=== PATIENT | female | born 1940 | race Caucasian/White ===

== ENCOUNTER → 2017-07-23 12:52 | Outpatient (CLI) | payer MEDICARE, OTHER, SELFPAY ==
--- NOTE | 2017-08-04 09:13 | PM.CARDMON.1 ---
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 The triggered event was associated with PACs and sinus rhythm Data: The minimum heart rate identified was 57 beats per minute at 23:09 on 07/24/2017. The maximum heart rate identified was 176 beats per minute at 17:58 on 07/25/2017 this was during a 7 beat run of SVT. The maximum sinus heart rate was 117 beats per minute at 10:35 on 07/24/2017 Less than 1% of identified beats were either PACs or PVCs There were 7 identified runs of SVT, the longest being 9 beats and the fastest being 7 beats at 176 beats per minute. Impression: Probably normal potline monitor. Occasional PACs and PVCs with very limited episodes of SVT as above that just may be long enough to cause symptoms. Clinical correlation suggested.
--- NOTE | 2017-08-04 09:16 | P.HOLT.S_ITS ---
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 The triggered event was associated with PACs and sinus rhythm Data: The minimum heart rate identified was 57 beats per minute at 23:09 on 10/2017. The maximum heart rate identified was 176 beats per minute at 17:58 on 2017 this was during a 7 beat run of SVT. The maximum sinus heart rate was 117 beats per minute at 10:35 on 07/24/2017 Less than 1% of identified beats were either PACs or PVCs There were 7 identified runs of SVT, the longest being 9 beats and the fastest being 7 beats at 176 beats per minute. Impression: Probably normal rn cardiac cath. Occasional PACs and PVCs with very limited episodes of SVT as above that just may be long enough to cause symptoms. Clinical correlation suggested.
== END ==
PROVIDERS: Family Provider Family Medicine; PCP Family Medicine; Visit Provider Family Medicine
DX: I49.9 Cardiac arrhythmia, unspecified (principal)
CPT/HCPCS: 0296T; 0298T

== ENCOUNTER → 2017-10-22 18:12 | Outpatient (REF) | payer MEDICARE, OTHER, SELFPAY | LOC: LAB 18:12 | PROVIDERS: Family Provider Family Medicine; PCP Family Medicine; Visit Provider Dermatology MOHS-Micrographic Surgery | DX: Z48.817 Encounter for surgical aftercare following surgery on the skin and subcutaneous tissue (principal); L01.00 Impetigo, unspecified | CPT/HCPCS: 87070; 87075; 87205 ==

== ENCOUNTER → 2017-10-25 09:54 | Outpatient (CLI) | payer MEDICARE, OTHER, SELFPAY ==
[2017-10-25 10:57] LABS: Vitamin D 25 Hydroxy (D3) 55.7 ng/mL (30.0-100.0)
== END ==
PROVIDERS: PCP Family Medicine; Visit Provider Family Medicine
DX: M85.80 Other specified disorders of bone density and structure, unspecified site (principal)
CPT/HCPCS: 36415; 82306

== ENCOUNTER → 2017-11-02 10:01 | Outpatient (CLI) | payer MEDICARE, OTHER, SELFPAY ==
--- NOTE | 2017-11-02 | OV.WND_ITS ---
Progress Note Details Patient Name: Vaishnavi Fernandez Patient Number: [id number] PatientPatientDate: 11/02/2017 Clinician: Jessica Lipscomb Physician / Feed Research Technician: Randal Hartman SUBJECTIVE Chief Complaint This information was obtained from the patient Mohs Surgery 10/14/17 Allergies penicillin (Severity: Moderate, Reaction: Rash) HPI This information was obtained from the patient 11/02/17. Seen by Dr. Hartman. 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 It apparently became infected and has now delayed in healing. She initially completed a course of Keflex however continues to report some pain and drainage at the ulcer site. Family History This information was obtained from the patient Cancer - Mother, Diabetes - Father, Heart Disease - Mother, Maternal Grandparents, Father, Hypertension - Mother, Maternal Grandparents, Father, Paternal Grandparents, Mental Illness - Mother, Non-contributory - No History, None - No History, Other - No History, Seizures - No History, Stroke - Maternal Grandparents, Thyroid Problems - No History General Notes: Dementia = Mother. Family history of Melanoma Social History This information was obtained from the patient Alcohol Use - 1 a day, Caffeine Use - 1 cup of coffee, Children - 3, Lives in - Own Home with , Marital Status - Yes, Retired - [employer], Self Care and Mobility - own self care Past Medical History This information was obtained from the patient Patient has a medical history of: Hypothyroidism Hypertension Basal Cell Carcinoma Surgical History This information was obtained from the patient Patient has a surgical history of: Oophorectomy and Hysterectomy (age 50) Mohs - 10/14/2017 (Squamous cell carcinoma) Mohs (Basil Cell Carinoma foot past) Right Knee Replacement General Notes: Has had multiple skin cancer removal. Complaints and Symptoms This information was obtained from the patient Patient complains of: General Notes: I have reviewed and concur with the Review of Systems and Past Family Social History documents completed by the clinician, I have reviewed and concur with the Wound Assessment document completed by the clinician Ear/Nose/Mouth/Throat: Hearing Loss / Aid Hematologic/Lymphatic: Bleeding Tendency Integumentary (Hair/Skin/Nails): Open Sore Prior Wound History: Drainage, Erythema, Pain Patient denies complaints or symptoms related to: Cardiovascular (Central): Chest Pain, Dyspnea on Exertion, Irregular heart beat Constitutional Symptoms (General Health): Chills, Fever Hematologic/Lymphatic: Bleeding / Clotting Disorders Neurological: Loss of Protective Sensation Psychiatric: Memory Loss Respiratory: Shortness of Breath General Notes: Updated will get one this week. Additional Information Does patient have a history of Cancer? Yes? Complete all questions.: Yes Location of Cancer: Skin Cancers on legs, feet, arms. Patient underwent Radiation Treatment? If yes, answer question below.: No Medications Lipitor 10 mg tablet oral 1 1 tablet oral once daily lisinopril 20 mg tablet oral 1 1 tablet oral once daily Aspir-81 81 mg tablet,delayed release oral tablet,delayed release (DR/EC) oral once daily levothyroxine 50 mcg tablet oral 1 1 tablet oral once daily OBJECTIVE Constitutional BP elevated; Afebrile; Alert and in no distress. Well developed. Alert. Clean appearing.. Height/Length: 66 in (167.64 cm), Weight: 160 lbs (72.73 kgs), BMI: 25.8, Temperature: 98.2 ?F (36.78 ?C), Pulse: 84 bpm, Respiratory Rate: 18 breaths/min, Blood Pressure: 170/84 mmHg, Pulse Oximetry: 99 %. Ears, Nose, Mouth, and Throat: No clinically significant hearing loss on informal examination. Respiratory: No respiratory distress. Even respirations and without use of accessory muscles.. Cardiovascular: Pedal pulses 2+ on affected limb. 1+ left lower extremity edema. Integumentary (Hair, Skin) Mild periwound erythema with warmth. Refer to appropriate clinician wound documentation for this visit; left lower leg ulcer extends to subcut with base partially covered with covarrubias fibrin and slough. Wound #1 Left, Posterior Leg is a chronic Full Thickness Surgical Wound and has received a status of Not Healed. Initial wound encounter measurements are 4cm length x 3cm width x 0.3cm depth, with an area of 12 sq cm and a volume of 3.6 cubic cm. No tunneling has been noted. No sinus tract has been noted. No undermining has been noted. There is a moderate amount of serosanguineous drainage noted which has no odor. The patient reports a wound pain of level 0/10. The wound margin is attached. Wound bed has No epithelialization, Yes eschar, Yes slough, No granulation. The periwound skin moisture is normal. The periwound skin color is normal. The periwound skin exhibited: Brawny Induration. The temperature of the periwound skin is Warm. Periwound skin presents with s/s of infection. Confirmation Description and Treatment Plan is: Signs and Symptoms Present. Local Pulse is Palpable. Neurological: Cranial nerves grossly intact with symmetric function normal by informal observation.. ASSESSMENT Active Problems ICD-10 (Encounter Diagnosis) L97.522 - Non-pressure chronic ulcer of other part of left foot with fat layer exposed (Encounter Diagnosis) L03.116 - Cellulitis of left lower limb PROCEDURES Wound #1 Wound #1 (Surgical Wound) is located on the left, posterior leg. A skin/ subcutaneous tissue level surgical debridement with a total area debrided of 12 sq cm was performed by Randal Hartman MD. Subcutaneous was removed along with devitalized tissue: exudate and slough. The following instrument(s) were used: curette, forceps, and scissors. Pain control was achieved using 4% Lido. A time out was conducted prior to the start of the procedure. A moderate amount of bleeding was controlled with pressure. The procedure was tolerated well with a pain level of 0 throughout and a pain level of 0 following the procedure. Post Debridement Measurements: 4cm length x 3cm width; with an area of 12 sq cm General Notes: Post Picture. Additional Information Muscle fascia or bone removed and sent to pathology?: No PLAN Wound Orders: Wound #1 Left, Posterior Leg Cleanser Cleanse Wound: - Normal saline or distilled water. May Shower. - But must wear Cast Protector Boot. This can be purchased at [employer] or [employer]. We want you to keep the dressing and wound dry from bathing. No swimming until this has healed. Dressings Pack wound: - Medi-Honey to wound bed. Primary dressing: - Then cover with a border foam Change Dressing: - Every two days. Follow-Up Appointments Return Appointment: - - One Week Other information: If you develop fever, chills, increased pain, drainage, redness or swelling please call our office. If after hours, respond to the ER. Should you experience any significant changes in your wound(s) or have any questions regarding your home care instructions please contact the wound center @ [phone]. If after hours, contact your primary care physician or go to the hospital emergency room. Laboratory: Culture Wound - Left Leg Medications prescribed: doxycycline hyclate - oral 100 mg capsule twice daily for 7 days for cellulitis starting 11/02/2017 General Notes: Start Antibiotics. We have called them into [facility]. We will call you if we need to change your antibiotic. Please increase your protein intact. I've reviewed the clinician's documentation and agree with the evaluation and plan as written. In addition, the patient's ulcer demonstrates evidence of non-viable devitalized tissue which will continue to benefit from sharp debridement to help promote granulation and expedite healing. Also, I've started the patient empirically on doxycycline for cellulitis associated with the non- pressure ulcer and will adjust antibiotics pending the culture results. Electronic Signature(s) Signed By: Date: Ranadl Hartman MD 11/23/2017 08:43:34 Entered By: Randal Hartman on 11/23/2017 08:27:23
== END ==
PROVIDERS: Family Provider Family Medicine; PCP Family Medicine; Visit Provider Internal Medicine
DX: L97.822 Non-pressure chronic ulcer of other part of left lower leg with fat layer exposed (principal); L03.116 Cellulitis of left lower limb
CPT/HCPCS: 11042; 87070; 87205; 99213

== ENCOUNTER → 2017-11-10 08:36 | Outpatient (CLI) | payer MEDICARE, OTHER, SELFPAY ==
--- NOTE | 2017-11-10 | OV.WND_ITS ---
Progress Note Details Patient Name: Vaishnavi Fernandez Patient Number: [id number] PatientPatientDate: 11/10/2017 Clinician: Charlene Portillo Clinician Cosigner: Xiomy Chandra Physician / Business Liaison Manager: Randal Hartman SUBJECTIVE Chief Complaint This information was obtained from the patient Mohs Surgery 10/14/17 Allergies penicillin (Severity: Moderate, Reaction: Rash) HPI This information was obtained from the patient 11/10/17. Seen by Dr. Hartman. The patient reports some mild persistent pain associated with the left lower leg non-pressure ulcer but in general feels it improving since starting on doxycycline for associated cellulitis after her visit last week. 11/02/17. Seen by Dr. Hartman. 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 It apparently became infected and has now delayed in healing. She initially completed a course of Keflex however continues to report some pain and drainage at the ulcer site. Past Medical History This information was obtained from the patient Patient has a medical history of: Hypothyroidism Hypertension Basal Cell Carcinoma Complaints and Symptoms This information was obtained from the patient Patient complains of: General Notes: I have reviewed and concur with the Review of Systems and Past Family Social History documents completed by the clinician, I have reviewed and concur with the Wound Assessment document completed by the clinician Ear/Nose/Mouth/Throat: Hearing Loss / Aid Hematologic/Lymphatic: Bleeding Tendency Integumentary (Hair/Skin/Nails): Open Sore Prior Wound History: Drainage, Erythema, Pain Patient denies complaints or symptoms related to: Cardiovascular (Central): Chest Pain, Dyspnea on Exertion, Irregular heart beat Constitutional Symptoms (General Health): Chills, Fever Hematologic/Lymphatic: Bleeding / Clotting Disorders Neurological: Loss of Protective Sensation Psychiatric: Memory Loss Respiratory: Shortness of Breath Additional Information Does patient have a history of Cancer? Yes? Complete all questions.: Yes Location of Cancer: Skin Cancers on legs, feet, arms. Patient underwent Radiation Treatment? If yes, answer question below.: No OBJECTIVE Constitutional Vital signs reviewed and noted. Well developed. Alert. Clean appearing.. Height/ Length: 66 in (167.64 cm), Weight: 165 lbs (75 kgs), BMI: 26.6, Temperature: 98.6 ?F (37 ?C), Pulse: 90 bpm, Respiratory Rate: 18 breaths/min, Blood Pressure: 122/64 mmHg, Pulse Oximetry: 99 %. Respiratory: No respiratory distress. Even respirations and without use of accessory muscles.. Cardiovascular: Affected extremity exhibits no peripheral edema or cyanosis, is warm, and is well perfused. Capillary refill is less than 2 seconds. Integumentary (Hair, Skin) No periwound erythema, warmth, or significant drainage. No periwound rashes appreciated or noted otherwise.. Refer to appropriate clinician wound documentation for this visit; left lower leg ulcer extends to subcut with base minimally covered with pink granulation, remainder fibrin and slough. Wound #1 Left, Posterior Leg is a chronic Full Thickness Surgical Wound and has received a status of Not Healed. Subsequent wound encounter measurements are 4cm length x 1cm width x 0.3cm depth, with an area of 4 sq cm and a volume of 1.2 cubic cm. No tunneling has been noted. No sinus tract has been noted. No undermining has been noted. There is a moderate amount of serosanguineous drainage noted which has no odor. The patient reports a wound pain of level 0/10. The wound margin is attached. Wound bed has Yes epithelialization, Yes eschar, Yes slough, Yes pink, firm granulation. The periwound skin moisture is normal. The periwound skin exhibited: Brawny Induration, Hemosiderosis. The temperature of the periwound skin is Warm. Periwound skin does not exhibit signs or symptoms of infection. Local Pulse is Palpable. Neurological: Cranial nerves grossly intact with symmetric function normal by informal observation.. ASSESSMENT Active Problems ICD-10 (Encounter Diagnosis) L97.522 - Non-pressure chronic ulcer of other part of left foot with fat layer exposed PROCEDURES Wound #1 Wound #1 (Surgical Wound) is located on the left, posterior leg. A skin/ subcutaneous tissue level surgical debridement with a total area debrided of 4 sq cm was performed by Randal Hartman MD. Subcutaneous was removed along with devitalized tissue: slough. The following instrument(s) were used: curette. Pain control was achieved using 4% Lido. A time out was conducted prior to the start of the procedure. A minimal amount of bleeding was controlled with n/a. The procedure was tolerated well with a pain level of 0 throughout and a pain level of 0 following the procedure. Post Debridement Measurements: 4cm length x 1cm width x 0.4cm depth; with an area of 4 sq cm and a volume of 1.6 cubic cm; Additional Information Muscle fascia or bone removed and sent to pathology?: No PLAN Wound Orders: Wound #1 Left, Posterior Leg Anesthetic Topical Xylocaine to wound bed. - In clinic only Cleanser Cleanse Wound: - Normal saline or distilled water. May Shower. - But must wear Cast Protector Boot. This can be purchased at [employer] or [employer]. We want you to keep the dressing and wound dry from bathing. No swimming until this has healed. Dressings Pack wound: - Medi-Honey to wound bed. Primary dressing: - Then cover with a border foam Change Dressing: - Every two days. Follow-Up Appointments Return Appointment: - - One Week Other information: If you develop fever, chills, increased pain, drainage, redness or swelling please call our office. If after hours, respond to the ER. Should you experience any significant changes in your wound(s) or have any questions regarding your home care instructions please contact the wound center @ [phone]. If after hours, contact your primary care physician or go to the hospital emergency room. I've reviewed the clinician's documentation and agree with the evaluation and plan as written. In addition, the patient's ulcer demonstrates evidence of non-viable devitalized tissue which will continue to benefit from sharp debridement to help promote granulation and expedite healing. Electronic Signature(s) Signed By: Date: Randal Hartman MD 11/11/2017 09:13:39 Entered By: Randal Hartman on 11/11/2017 08:51:10
== END ==
PROVIDERS: Family Provider Family Medicine; PCP Family Medicine; Visit Provider Internal Medicine
DX: L97.822 Non-pressure chronic ulcer of other part of left lower leg with fat layer exposed (principal)
CPT/HCPCS: 11042

== ENCOUNTER → 2017-11-17 08:43 | Outpatient (CLI) | payer MEDICARE, OTHER, SELFPAY ==
--- NOTE | 2017-11-17 | OV.WND_ITS ---
Progress Note Details Patient Name: Vaishnavi Fernandez Patient Number: [id number] PatientPatientDate: 11/17/2017 Clinician: Gemma Hi Cosigner: Xiomy Chandra Physician / Trimmer Meat: Randal Hartman SUBJECTIVE Chief Complaint This information was obtained from the patient Non-healing wound on left leg. Allergies penicillin (Severity: Moderate, Reaction: Rash) HPI This information was obtained from the patient 11/17/17. Seen by Dr. Hartman. The patient does not report significant drainage or pain associated with the left lower leg non-pressure ulcer since her visit last week. 11/10/17. Seen by Dr. Hartman. The patient reports some mild persistent pain associated with the left lower leg non-pressure ulcer but in general feels it improving since starting on doxycycline for associated cellulitis after her visit last week. 11/02/17. Seen by Dr. Hartman. 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 It apparently became infected and has now delayed in healing. She initially completed a course of Keflex however continues to report some pain and drainage at the ulcer site. Past Medical History This information was obtained from the patient Patient has a medical history of: Hypothyroidism Hypertension Basal Cell Carcinoma Complaints and Symptoms This information was obtained from the patient Patient complains of: General Notes: I have reviewed and concur with the Review of Systems and Past Family Social History documents completed by the clinician, I have reviewed and concur with the Wound Assessment document completed by the clinician Ear/Nose/Mouth/Throat: Hearing Loss / Aid Hematologic/Lymphatic: Bleeding Tendency Integumentary (Hair/Skin/Nails): Open Sore Prior Wound History: Drainage, Erythema, Pain Patient denies complaints or symptoms related to: Cardiovascular (Central): Chest Pain, Dyspnea on Exertion, Irregular heart beat Constitutional Symptoms (General Health): Chills, Fever Hematologic/Lymphatic: Bleeding / Clotting Disorders Neurological: Loss of Protective Sensation Psychiatric: Memory Loss Respiratory: Shortness of Breath Additional Information Does patient have a history of Cancer? Yes? Complete all questions.: Yes Location of Cancer: Skin Cancers on legs, feet, arms. Patient underwent Radiation Treatment? If yes, answer question below.: No OBJECTIVE Constitutional BP elevated; Low grade fever; Alert and in no distress. Well developed. Alert. Clean appearing.. Height/Length: 66 in (167.64 cm), Weight: 165 lbs (75 kgs), BMI: 26.6, Temperature: 99.5 ?F (37.5 ?C), Pulse: 81 bpm, Respiratory Rate: 18 breaths/min , Blood Pressure: 137/73 mmHg, Pulse Oximetry: 97 %. Respiratory: No respiratory distress. Even respirations and without use of accessory muscles.. Cardiovascular: Affected extremity exhibits no peripheral edema or cyanosis, is warm, and is well perfused. Capillary refill is less than 2 seconds. Integumentary (Hair, Skin) No periwound erythema, warmth, or significant drainage. No periwound rashes appreciated or noted otherwise.. Refer to appropriate clinician wound documentation for this visit; left lower leg ulcer extends to subcut with base partially covered with pink granulation, remainder fibrin and slough. Wound #1 Left, Posterior Leg is a chronic Full Thickness Surgical Wound and has received a status of Not Healed. Subsequent wound encounter measurements are 3.9cm length x 1.5cm width x 0.3cm depth, with an area of 5.85 sq cm and a volume of 1.755 cubic cm. No tunneling has been noted. No sinus tract has been noted. No undermining has been noted. There is a moderate amount of serosanguineous drainage noted which has no odor. The patient reports a wound pain of level 0/10. The wound margin is attached. Wound bed has Yes epithelialization, Yes eschar, Yes slough, No granulation. The periwound skin moisture is normal. The periwound skin exhibited: Brawny Induration, Hemosiderosis. The periwound skin did not exhibit: Edema, Excoriation, Induration, Callus, Crepitus, Fluctuance, Friable, Rash, Atrophie Lili, Cyanosis, Ecchymosis, Erythema, Pallor, Rubor. The temperature of the periwound skin is Warm. Periwound skin does not exhibit signs or symptoms of infection. Local Pulse is Palpable. Neurological: Cranial nerves grossly intact with symmetric function normal by informal observation.. ASSESSMENT Active Problems ICD-10 (Encounter Diagnosis) L97.522 - Non-pressure chronic ulcer of other part of left foot with fat layer exposed PROCEDURES Wound #1 Wound #1 (Surgical Wound) is located on the left, posterior leg. A skin/ subcutaneous tissue level surgical debridement with a total area debrided of 5.85 sq cm was performed by Randal Hartman MD. Subcutaneous was removed along with devitalized tissue: exudate, necrotic/eschar, and slough. The following instrument(s) were used: curette, forceps, and scissors. Pain control was achieved using 4% Lido. A time out was conducted prior to the start of the procedure. A minimal amount of bleeding was controlled with n/a. The procedure was tolerated well with a pain level of 0 throughout and a pain level of 0 following the procedure. Post Debridement Measurements: 3.9cm length x 1.5cm width x 0.4cm depth; with an area of 5.85 sq cm and a volume of 2.34 cubic cm; Additional Information Muscle fascia or bone removed and sent to pathology?: No PLAN Wound Orders: Wound #1 Left, Posterior Leg Anesthetic Topical Xylocaine to wound bed. - In clinic only. Cleanser Cleanse Wound: - Normal saline or distilled water. May Shower. - Must wear Cast Protector Boot. No swimming until this has healed. Topical Treatments Enzymatic Debriding Agent. - Medihoney. Dressings Primary dressing: - Bordered foam. Change Dressing: - Every two days. Follow-Up Appointments Return Appointment: - - Wednesday next week for possible [employer]INDER application. Other information: If you develop fever, chills, increased pain, drainage, redness or swelling please call our office. If after hours, respond to the ER. Should you experience any significant changes in your wound(s) or have any questions regarding your home care instructions please contact the wound center @ [phone]. If after hours, contact your primary care physician or go to the hospital emergency room. Scribing Attestation I attest, as the nurse, that I scribed these orders for the physician. Other Services and Therapies: Wound VAC - VARINDER insurance authorization being submitted today. I've reviewed the clinician's documentation and agree with the evaluation and plan as written. In addition, the patient's ulcer demonstrates evidence of non-viable devitalized tissue which will continue to benefit from sharp debridement to help promote granulation and expedite healing. Electronic Signature(s) Signed By: Date: Randal Hartman MD 11/18/2017 08:14:12 Entered By: Randal Hartman on 11/18/2017 07:56:23
== END ==
PROVIDERS: Family Provider Family Medicine; PCP Family Medicine; Visit Provider Internal Medicine
DX: L97.822 Non-pressure chronic ulcer of other part of left lower leg with fat layer exposed (principal)
CPT/HCPCS: 11042

== ENCOUNTER → 2017-11-26 09:54 | Outpatient (CLI) | payer MEDICARE, OTHER, SELFPAY ==
--- NOTE | 2017-11-26 | OV.WND_ITS ---
Progress Note Details Patient Name: Vaishnavi Fernandez Patient Number: [id number] PatientPatientDate: 11/26/2017 Clinician: Charlene Portillo Physician / Clinical Recruiter: Randal Hartman SUBJECTIVE Chief Complaint This information was obtained from the patient Non-healing wound on left leg. Allergies penicillin (Severity: Moderate, Reaction: Rash) HPI This information was obtained from the patient 11/26/17. Seen by Dr. Hartman. The patient does not report significant drainage or pain associated with the left lower leg non-pressure ulcer since her visit last week. 11/17/17. Seen by Dr. Hartman. The patient does not report significant drainage or pain associated with the left lower leg non-pressure ulcer since her visit last week. 11/10/17. Seen by Dr. Hartman. The patient reports some mild persistent pain associated with the left lower leg non-pressure ulcer but in general feels it improving since starting on doxycycline for associated cellulitis after her visit last week. 11/02/17. Seen by Dr. Hartman. 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 It apparently became infected and has now delayed in healing. She initially completed a course of Keflex however continues to report some pain and drainage at the ulcer site. Past Medical History This information was obtained from the patient Patient has a medical history of: Hypothyroidism Hypertension Basal Cell Carcinoma Complaints and Symptoms This information was obtained from the patient Patient complains of: General Notes: I have reviewed and concur with the Review of Systems and Past Family Social History documents completed by the clinician, I have reviewed and concur with the Wound Assessment document completed by the clinician Ear/Nose/Mouth/Throat: Hearing Loss / Aid Hematologic/Lymphatic: Bleeding Tendency Integumentary (Hair/Skin/Nails): Open Sore Prior Wound History: Drainage, Erythema, Pain Patient denies complaints or symptoms related to: Cardiovascular (Central): Chest Pain, Dyspnea on Exertion, Irregular heart beat Constitutional Symptoms (General Health): Chills, Fever Hematologic/Lymphatic: Bleeding / Clotting Disorders Neurological: Loss of Protective Sensation Psychiatric: Memory Loss Respiratory: Shortness of Breath Additional Information Does patient have a history of Cancer? Yes? Complete all questions.: Yes Location of Cancer: Skin Cancers on legs, feet, arms. Patient underwent Radiation Treatment? If yes, answer question below.: No OBJECTIVE Constitutional Vital signs reviewed and noted. Well developed. Alert. Clean appearing.. Height/ Length: 66 in (167.64 cm), Weight: 165 lbs (75 kgs), BMI: 26.6, Temperature: 98.7 ?F (37.06 ?C ), Pulse: 80 bpm, Respiratory Rate: 18 breaths/min, Blood Pressure: 135/77 mmHg, Pulse Oximetry: 100 %. Ears, Nose, Mouth, and Throat: No clinically significant hearing loss on informal examination. Respiratory: No respiratory distress. Even respirations and without use of accessory muscles.. Integumentary (Hair, Skin) Mild periwound erythema without warmth. Refer to appropriate clinician wound documentation for this visit; left lower leg ulcer extends to subcut with base partially covered with pink granulation, remainder fibrin and slough. Wound #1 Left, Posterior Leg is a chronic Full Thickness Surgical Wound and has received a status of Not Healed. Subsequent wound encounter measurements are 3.9cm length x 1.6cm width x 0.3cm depth, with an area of 6.24 sq cm and a volume of 1.872 cubic cm. No tunneling has been noted. No sinus tract has been noted. No undermining has been noted. There is a moderate amount of serosanguineous drainage noted which has no odor. The patient reports a wound pain of level 1/10. The wound margin is attached. Wound bed has Yes epithelialization, No eschar, Yes slough, Yes bright red, firm granulation. The periwound skin exhibited: Brawny Induration, Moist, Maceration, Hemosiderosis. The periwound skin did not exhibit: Edema, Excoriation, Induration, Callus, Crepitus , Fluctuance, Friable, Rash, Dry/Scaly, Atrophie Lili, Cyanosis, Ecchymosis, Erythema, Pallor, Rubor. The temperature of the periwound skin is Warm. Periwound skin does not exhibit signs or symptoms of infection. Local Pulse is Palpable. Neurological: Cranial nerves grossly intact with symmetric function normal by informal observation.. ASSESSMENT Active Problems ICD-10 (Encounter Diagnosis) L97.522 - Non-pressure chronic ulcer of other part of left foot with fat layer exposed (Encounter Diagnosis) L08.9 - Local infection of the skin and subcutaneous tissue, unspecified PROCEDURES Wound #1 Wound #1 (Surgical Wound) is located on the left, posterior leg. A skin/ subcutaneous tissue level surgical debridement with a total area debrided of 6.24 sq cm was performed by Randal Hartman MD. Subcutaneous was removed along with devitalized tissue: slough. The following instrument(s) were used: curette. Pain control was achieved using 4% Lido. A time out was conducted prior to the start of the procedure. A minimal amount of bleeding was controlled with n/a. The procedure was tolerated well with a pain level of 0 throughout and a pain level of 0 following the procedure. Post Debridement Measurements: 3.9cm length x 1.6cm width x 0.4cm depth; with an area of 6.24 sq cm and a volume of 2.496 cubic cm; Additional Information Muscle fascia or bone removed and sent to pathology?: No PLAN Wound Orders: Wound #1 Left, Posterior Leg Anesthetic Topical Xylocaine to wound bed. - In clinic only. Cleanser Cleanse Wound: - Normal saline or distilled water. May Shower. - Must wear Cast Protector Boot. No swimming until this has healed. Topical Treatments Antibiotic/Antimicrobial Ointment/Cream. - Gentamicin ointment Dressings Primary dressing: - Bordered foam. Change Dressing: - Daily Follow-Up Appointments Return Appointment: - - One week Other information: If you develop fever, chills, increased pain, drainage, redness or swelling please call our office. If after hours, respond to the ER. Should you experience any significant changes in your wound(s) or have any questions regarding your home care instructions please contact the wound center @ [phone]. If after hours, contact your primary care physician or go to the hospital emergency room. Scribing Attestation I attest, as the nurse, that I scribed these orders for the physician. Medications prescribed: gentamicin - topical 0.1 % ointment once daily for 7 days for infected ulcer starting 11/26/2017 I've reviewed the clinician's documentation and agree with the evaluation and plan as written. In addition, the patient's ulcer demonstrates evidence of non-viable devitalized tissue which will continue to benefit from sharp debridement to help promote granulation and expedite healing. Also, I've cultured the ulcer due to periwound erythema and will start treating with topical gentamicin. We'll also plan on placing a wound vac at her next visit. Electronic Signature(s) Signed By: Date: Randal Hartman MD 11/29/2017 13:28:46 Entered By: Randal Hartman on 11/29/2017 09:34:52
== END ==
PROVIDERS: Family Provider Family Medicine; PCP Family Medicine; Visit Provider Internal Medicine
DX: L97.822 Non-pressure chronic ulcer of other part of left lower leg with fat layer exposed (principal); L08.9 Local infection of the skin and subcutaneous tissue, unspecified
CPT/HCPCS: 11042; 87070; 87077; 87147; 87186; 87205

== ENCOUNTER → 2017-12-03 10:21 | Outpatient (CLI) | payer MEDICARE, OTHER, SELFPAY | PROVIDERS: Family Provider Family Medicine; PCP Family Medicine; Visit Provider Family Medicine | DX: I87.312 Chronic venous hypertension (idiopathic) with ulcer of left lower extremity (principal); L97.822 Non-pressure chronic ulcer of other part of left lower leg with fat layer exposed; M79.605 Pain in left leg | CPT/HCPCS: 11042 ==

== ENCOUNTER → 2017-12-08 08:24 | Outpatient (CLI) | payer MEDICARE, OTHER, SELFPAY | PROVIDERS: Family Provider Family Medicine; PCP Family Medicine; Visit Provider Family Medicine | DX: S81.802A Unspecified open wound, left lower leg, initial encounter (principal); T81.31XA Disruption of external operation (surgical) wound, not elsewhere classified, initial encounter | CPT/HCPCS: 29581; 99213 ==

== ENCOUNTER → 2017-12-10 09:45 | Outpatient (CLI) | payer MEDICARE, OTHER, SELFPAY | PROVIDERS: Family Provider Family Medicine; PCP Family Medicine; Visit Provider Family Medicine | DX: L97.822 Non-pressure chronic ulcer of other part of left lower leg with fat layer exposed (principal); I87.2 Venous insufficiency (chronic) (peripheral) | CPT/HCPCS: 99212 ==

== ENCOUNTER → 2017-12-17 09:25 | Outpatient (CLI) | payer MEDICARE, OTHER, SELFPAY | PROVIDERS: Family Provider Family Medicine; PCP Family Medicine; Visit Provider Family Medicine | DX: I87.2 Venous insufficiency (chronic) (peripheral) (principal); L97.821 Non-pressure chronic ulcer of other part of left lower leg limited to breakdown of skin; M79.605 Pain in left leg | CPT/HCPCS: 11042 ==

== ENCOUNTER → 2017-12-24 09:00 | Outpatient (CLI) | payer MEDICARE, OTHER, SELFPAY | PROVIDERS: Family Provider Family Medicine; PCP Family Medicine; Visit Provider Family Medicine | DX: I87.2 Venous insufficiency (chronic) (peripheral) (principal); L97.822 Non-pressure chronic ulcer of other part of left lower leg with fat layer exposed | CPT/HCPCS: 11042; 87070; 87205 ==

== ENCOUNTER → 2017-12-31 10:47 | Outpatient (CLI) | payer MEDICARE, OTHER, SELFPAY | PROVIDERS: Family Provider Family Medicine; PCP Family Medicine; Visit Provider Family Medicine | DX: I87.2 Venous insufficiency (chronic) (peripheral) (principal); L97.822 Non-pressure chronic ulcer of other part of left lower leg with fat layer exposed | CPT/HCPCS: 11042 ==

== ENCOUNTER → 2018-01-10 08:45 | Outpatient (CLI) | payer MEDICARE, OTHER, SELFPAY | PROVIDERS: Family Provider Family Medicine; PCP Family Medicine; Visit Provider Family Medicine | DX: T81.31XA Disruption of external operation (surgical) wound, not elsewhere classified, initial encounter (principal); S81.802A Unspecified open wound, left lower leg, initial encounter | CPT/HCPCS: 11042 ==

== ENCOUNTER → 2018-01-18 08:47 | Outpatient (CLI) | payer MEDICARE, OTHER, SELFPAY | PROVIDERS: Family Provider Family Medicine; PCP Family Medicine; Visit Provider Family Medicine | DX: S81.802A Unspecified open wound, left lower leg, initial encounter (principal); T81.31XA Disruption of external operation (surgical) wound, not elsewhere classified, initial encounter | CPT/HCPCS: 97597 ==

== ENCOUNTER → 2018-01-25 08:39 | Outpatient (CLI) | payer MEDICARE, OTHER, SELFPAY | PROVIDERS: Family Provider Family Medicine; PCP Family Medicine; Visit Provider Family Medicine | DX: L97.822 Non-pressure chronic ulcer of other part of left lower leg with fat layer exposed (principal); I87.2 Venous insufficiency (chronic) (peripheral) | CPT/HCPCS: 11042 ==

== ENCOUNTER → 2018-02-01 08:54 | Outpatient (CLI) | payer MEDICARE, OTHER, SELFPAY | PROVIDERS: Family Provider Family Medicine; PCP Family Medicine; Visit Provider Family Medicine | DX: L97.822 Non-pressure chronic ulcer of other part of left lower leg with fat layer exposed (principal); I87.2 Venous insufficiency (chronic) (peripheral) | CPT/HCPCS: 97597 ==

== ENCOUNTER → 2018-02-14 08:44 | Outpatient (CLI) | payer MEDICARE, OTHER, SELFPAY | PROVIDERS: Family Provider Family Medicine; PCP Family Medicine; Visit Provider Family Medicine | DX: Z48.817 Encounter for surgical aftercare following surgery on the skin and subcutaneous tissue (principal); I87.2 Venous insufficiency (chronic) (peripheral) | CPT/HCPCS: 99212; 99213 ==

== ENCOUNTER → 2018-05-25 10:19 | Outpatient (CLI) | payer MEDICARE, OTHER, SELFPAY ==
[2018-05-25 11:45] LABS: BUN Creatinine Ratio 27.8 (6-22); Blood Urea Nitrogen 25 mg/dL (7-17); Calcium 10.2 mg/dL (8.4-10.2); Carbon Dioxide 26 mmol/L (22-32); Chloride 103 mmol/L (98-107); Estimated Glomerular Filt Rate > 60.0 mL/min (>60); Glucose 94 mg/dL (80-110); HEMOLYSIS < 15 (0-50); Potassium 4.4 mmol/L (3.4-5.1); Sodium 138 mmol/L (137-145)
== END ==
PROVIDERS: Family Provider Family Medicine; PCP Family Medicine; Visit Provider Family Medicine
DX: I10 Essential (primary) hypertension (principal)
CPT/HCPCS: 36415; 80048

== ENCOUNTER → 2018-06-27 10:48 | Outpatient (CLI) | payer MEDICARE, OTHER, SELFPAY ==
--- NOTE | 2018-06-27 | DI.MG.S_ITS ---
BILATERAL DIGITAL SCREENING MAMMOGRAM 3D/2D WITH CAD: 06/27/2018 CLINICAL: Routine screening. Family history of breast cancer. Comparison is made to exams dated: 06/24/2017 mammogram, 05/25/2016 mammogram, and 05/24/2015 mammogram - [facility]. The tissue of both breasts is heterogeneously dense. This may lower the sensitivity of mammography. Current study was also evaluated with a Computer Aided Detection (CAD) system. There are benign vascular calcifications and calcifications in both breasts. There also is a benign biopsy clip in the right breast. There is an oval equal density asymmetry with an indistinct margin in the left breast posterior depth lateral region seen on the craniocaudal view only. No other significant masses, calcifications, or other findings are seen in either breast. There has been no significant interval change. IMPRESSION: INCOMPLETE: NEEDS ADDITIONAL IMAGING EVALUATION The oval equal density asymmetry in the left breast is indeterminate. Mediolateral and spot compression views as well as additional views with possible ultrasound are recommended. Follow-up with ACR/ACS guidelines. This exam was interpreted at Station ID: [id number]. NOTE: For mammograms, a report in lay terms will be sent to the patient. Approximately 15% of breast malignancies will not be visualized mammographically. In the management of a palpable breast mass, a negative mammogram must not discourage biopsy of a clinically suspicious lesion. Electronically Signed By: Gil alicea/ken:06/27/2018 15:29:37 letter sent: Additional Imaging Needed ACR BI-RADS Category 0: Incomplete 3340F
== END ==
PROVIDERS: PCP Family Medicine; Visit Provider Family Medicine
DX: Z12.31 Encounter for screening mammogram for malignant neoplasm of breast (principal); Z80.3 Family history of malignant neoplasm of breast
CPT/HCPCS: 77063; 77067

== ENCOUNTER → 2018-07-14 13:43 | Outpatient (CLI) | payer MEDICARE, OTHER, SELFPAY ==
[2018-07-14 14:52] LABS: Add Manual Diff / Slide Review NO; Basophils Absolute Auto 0 /uL (0-100); Basophils Percent Auto 0.7 % (0-2); Eosinophils Absolute Auto 100 /uL (0-450); Eosinophils Percent Auto 1.3 % (2-4); Hematocrit 37.9 % (36-46); Hemoglobin 12.7 g/dL (12.0-16.0); Lymphocytes Absolute Auto 1000 /uL (1100-4500); Lymphocytes Percent Auto 18.6 % (25-40); Mean Corpuscular HGB Conc 33.5 % (30-36); Mean Corpuscular Hemoglobin 30.6 PG (26-34); Mean Corpuscular Volume 91.2 fL (80-100); Monocytes Absolute Auto 600 /uL (0-900); Monocytes Percent Auto 10.5 % (3-14); Neutrophils Absolute Auto 3800 /uL (1500-7000); Neutrophils Percent Auto 68.9 % (50-75); Platelet Count 141 X10^3/uL (150-400); Red Blood Cell Count 4.15 X10^6/uL (4.0-5.2); Red Cell Distribution Width 12.5 % (11.6-14.8); White Blood Cell Count 5.5 X10^3/uL (4.5-11.0)
[2018-07-14 15:58] LABS: TSH w/ Reflex to FT4 1.76 uIU/mL (0.47-4.68)
[2018-07-14 16:05] LABS: Ferritin 54.3 ng/mL (11.1-264)
[2018-07-14 16:19] LABS: Vitamin B12 312 pg/mL (239-931)
[2018-07-16 15:51] LABS: Homocysteine 11.9 umol/L (< 10.4)
[2018-07-20 00:39] LABS: Methylmalonic Acid 448 nmol/L (87-318)
== END ==
PROVIDERS: PCP Family Medicine; Visit Provider Family Medicine
DX: G60.9 Hereditary and idiopathic neuropathy, unspecified (principal); I10 Essential (primary) hypertension; D69.6 Thrombocytopenia, unspecified
CPT/HCPCS: 36415; 82607; 82728; 83090; 83921; 84443; 85025

== ENCOUNTER → 2018-07-15 07:57 | Outpatient (CLI) | payer MEDICARE, OTHER, SELFPAY ==
--- NOTE | 2018-07-15 08:00 | DI.MG.S_ITS ---
UNILATERAL LEFT DIGITAL DIAGNOSTIC MAMMOGRAM 3D/2D WITH ADDITIONAL VIEWS: 07/15/2018 CLINICAL: Additional evaluation requested from prior study. Family history of breast cancer. Comparison is made to exams dated: 06/27/2018 mammogram, 06/24/2017 mammogram, and 05/25/2016 mammogram - [facility]. The tissue of left breast is heterogeneously dense. This may lower the sensitivity of mammography. Previously identified oval equal density asymmetry with an indistinct margin in the left breast posterior depth lateral region seen on the craniocaudal view only on comparison screening mammograms of 06/27/2018 persists with additional views. IMPRESSION: INCOMPLETE: NEEDS ADDITIONAL IMAGING EVALUATION Previously identified oval equal density asymmetry with an indistinct margin in the left breast posterior depth lateral region seen on the craniocaudal view only on comparison screening mammograms of 06/27/2018 persists with additional views. A targeted ultrasound is recommended for further evaluation, and will be performed immediately following this exam. This exam was interpreted at Station ID: [id number]. NOTE: For mammograms, a report in lay terms will be sent to the patient. Approximately 15% of breast malignancies will not be visualized mammographically. In the management of a palpable breast mass, a negative mammogram must not discourage biopsy of a clinically suspicious lesion. Electronically Signed By: Tyree Rodriguez M.D. ecl/:07/15/2018 09:03:58 ACR BI-RADS Category 0: Incomplete 3340F
--- NOTE | 2018-07-15 08:00 | DI.US.S_ITS ---
LIMITED ULTRASOUND OF LEFT BREAST: 07/15/2018 CLINICAL: Additional evaluation requested from prior study. Comparison is made to exams dated: 07/15/2018 mammogram, 06/27/2018 mammogram, 06/24/2017 mammogram, and 05/25/2016 mammogram - [facility]. Real-time and Doppler ultrasound of the left breast outer aspect were performed. Matos scale images of the real-time examination were reviewed. Targeted ultrasound of the outer left breast demonstrates a 0.5 x 0.5 x 0.2 cm oval indistinct hypoechoic cyst with low-level internal echoes and no vascularity on Doppler ultrasound located in the left breast at 4:00 position 4 cm from the nipple. There is also an area of focal ductal wall thickening measuring approximately 1.4 x 0.3 x 0.5 cm in the left breast at 4:00 position 3 cm from the nipple, which demonstrates no internal vascularity of the thickened wall on Doppler ultrasound. These findings may correlate with the findings seen on comparison mammography. IMPRESSION: SUSPICIOUS OF MALIGNANCY 1. 1.4 cm area of focal vascular ductal wall thickening in the left breast at 4:00 position 3 cm from the nipple. An ultrasound-guided biopsy is recommended for further evaluation. 2. 0.5 cm probable complicated cyst in the left breast at 4:00 position 4 cm from the nipple is probably benign. Followup targeted left breast ultrasound with possible mammogram in 6 months is recommended to demonstrate stability. These results and recommendations were discussed with the patient at the time of the exam by the [facility] Radiologist Dr. Drew Pulido in person. This exam was interpreted at Station ID: [id number]. Electronically Signed By: Tyree Rodriguez M.D. ecl/:07/15/2018 12:46:51 letter sent: Biopsy Required Ultrasound BI-RADS: 4a Suspicious abnormality - low suspicion for malignancy
== END ==
PROVIDERS: PCP Family Medicine; Visit Provider Family Medicine
DX: R92.8 Other abnormal and inconclusive findings on diagnostic imaging of breast (principal); N60.02 Solitary cyst of left breast; N64.89 Other specified disorders of breast
CPT/HCPCS: 76642; 77065; G0279

== ENCOUNTER → 2018-08-12 08:57 | Outpatient (CLI) | payer MEDICARE, OTHER, SELFPAY ==
--- NOTE | 2018-08-12 | PATH_ITS ---
[facility] Accession Number: [id number] . 01 Material submitted: . breast - LT BREAST DUCT . 01 Clinical history: . LEFT BREAST MASS . 02 Diagnosis: A. Left Breast Duct, Excision: Fragments of cyst wall with focal papillary projections, suggestive of benign intraductal papilloma. Separate fragments of fibrous breast parenchyma with no diagnostic abnormality. Rare microcalcifications associated with benign breast parenchyma. Negative for atypical hyperplasia, in situ or invasive carcinoma. BFI/08/16/2018 . 02 Comment: As part of routine associate quality engineer, Dr. Hughes has reviewed this case and agrees with the above interpretation. . 02 Electronically signed: . Misael Patino MD, PhD, Pathologist NPI- [id number] . 01 Gross description: . Received one formalin-filled container labeled with the patient's name and labeled LT breast duct. The specimen is received with a plastic filter, sample loose in container. The specimen consists of portions of light spain-white tissue and clotted blood which measure 2.0 x 2.0 x 0.6 cm in aggregate. The specimen is filtered, wrapped, and entirely submitted in two cassettes. Collection date: 08/12/2018. No collection time on container. Possible collection time per requisition: 11:21. Total fixation time: Approximately 24 hours, up to 48. ([id number]) /FRR . 02 Pathologist provided ICD-10: N63.20 . 02 CPT . 296569 Performed at: 01 [facility] [address] [facility], [place], [place] [id number] MD Gil Zaidi MD Phone: [phone] Performed at: 02 [facility] [place] [id number] [place] [address] [id number] MD Sandra Hughes MD Phone: [phone]
--- NOTE | 2018-08-12 08:59 | DI.MG.S_ITS ---
UNILATERAL LEFT DIGITAL DIAGNOSTIC MAMMOGRAM POST-NEEDLE BIOPSY: 08/12/2018 CLINICAL: Post left breast ultrasound biopsy clip placement imaging. Comparison is made to exams dated: 07/15/2018 mammogram, 06/27/2018 mammogram, and 06/24/2017 mammogram - [facility]. The tissue of left breast is heterogeneously dense. This may lower the sensitivity of mammography. The post biopsy Vision marker is in expected position after US guided biopsy today. IMPRESSION: POST PROCEDURE MAMMOGRAM FOR MARKER PLACEMENT Expected biopsy marker positioning, with pathology results pending for the 4:00 position thickened duct biopsy performed under US guidance today. This exam was interpreted at Station ID: [id number]. NOTE: For mammograms, a report in lay terms will be sent to the patient. Approximately 15% of breast malignancies will not be visualized mammographically. In the management of a palpable breast mass, a negative mammogram must not discourage biopsy of a clinically suspicious lesion. Electronically Signed By: Drew Pulido M.D. [facility]/:08/12/2018 16:47:40 ACR BI-RADS Category Post-procedure mammogram for marker placement
--- NOTE | 2018-08-12 08:59 | DI.US.S_ITS ---
ULTRASOUND GUIDED BIOPSY LEFT BREAST USING VACUUM DEVICE WITH MARKING DEVICE INSERTED AND POST MAMMOGRAPHIC IMAGIN08/12/2018 CLINICAL: Enlarge lt breast duct. PATIENT CONSENT: Risks (minor bleeding, infection, vasovagal reaction and repeat procedure), benefits and alternatives were explained to the patient and written informed consent was obtained. Correlation is made to exams dated: 08/12/2018 mammogram, 07/15/2018 ultrasound, 07/15/2018 mammogram, 06/27/2018 mammogram, and 06/24/2017 mammogram - [facility]. An ultrasound guided biopsy using real-time ultrasound was performed for the concerning circumscribed oval abnormal duct located in the left breast at 4 o'clock middle depth. This was described on the previous ultrasound report. The skin was prepped in the usual manner. Local anesthetic was administered to the access site. A small incision was made in the breast. The abnormality was approached from the lateral aspect. A 13 gauge biopsy needle was placed adjacent to the abnormality under ultrasound guidance. Once the needle was documented to be in the correct location, three specimens were obtained using the Mammotome biopsy system. The patient received additional local anesthetic during the procedure. A Vision marker clip was inserted into the biopsy cavity. A skin closure strip and a sterile dressing were applied to the access site. Post procedure mammographic imaging demonstrates the location device at the targeted area and partial removal of the abnormality. The specimens were sent to the laboratory for pathological analysis. IMPRESSION: ULTRASOUND GUIDED BIOPSY BENIGN Ultrasound guided biopsy of the abnormal duct in the left breast at 4 o'clock middle depth was successful. 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 Pathology results are concordant with imaging findings. A surgical consultation is recommended for further evaluation. Additionally, recommend follow up left breast mammogram and ultrasound for probably benign complicated cyst in the left breast 4:00 o'clock position, 4cm from the nipple that was visualized during image evaluation. This exam was interpreted at Station ID: [id number]. Drew Rojas M.D. [facility],aty/:08/17/2018 19:03:57
== END ==
PROVIDERS: PCP Family Medicine; Visit Provider Family Medicine
DX: D24.2 Benign neoplasm of left breast (principal)
CPT/HCPCS: 19083; 77065; 88305

== ENCOUNTER → 2018-10-28 08:38 | Outpatient (CLI) | payer MEDICARE, OTHER, SELFPAY ==
--- NOTE | 2018-10-28 08:41 | DI.US.S_ITS ---
LIMITED ULTRASOUND OF LEFT BREAST: 10/28/2018 CLINICAL: Patient returns for a 6 month follow up of the left breast. Post biopsy. Comparison is made to exams dated: 10/28/2018 mammogram, 08/12/2018 ultrasound biopsy, 08/12/2018 mammogram, 07/15/2018 ultrasound, 07/15/2018 mammogram, and 06/27/2018 mammogram - [facility]. Color flow and real-time ultrasound of the left breast lower outer quadrant were performed on the areas of interest. There is a mildy dilated duct with wall thickening in the left breast at 4 o'clock middle depth. This dilated duct is of mixed echogenicity. This abnormality is not significantly changed and correlates with the previous biopsy. Color flow imaging demonstrates that there is no vascularity present. There also is a new 0.4 cm x 0.5 cm x 0.5 cm oval cyst in the left breast at 4 o'clock anterior depth. This oval cyst is hypoechoic with internal echoes. This is located adjacent to the previous biopsy. Color flow imaging demonstrates that there is no vascularity present. Additionally, there is a 0.3 cm x 0.2 cm x 0.3 cm oval cyst in the left breast at 4 o'clock middle depth. This oval cyst is hypoechoic with internal echoes. This abnormality is decreased in size. Color flow imaging demonstrates that there is no vascularity present. IMPRESSION: PROBABLY BENIGN The dilated duct with wall thickening in the left breast at 4 o'clock middle depth is consistent with previous biopsy demonstrating a papilloma and is probably benign. Patient reports a preference for followup rather than surgical consultation following discussion with her doctor. A follow-up ultrasound in 6 months is recommended. The new 0.4 cm x 0.5 cm x 0.5 cm oval cyst in the left breast at 4 o'clock anterior depth adjacent to the biopsy site is probably benign and likely represents a seroma. A follow-up ultrasound in 6 months is recommended. The 0.3 cm x 0.2 cm x 0.3 cm oval complicated cyst in the left breast at 4 o'clock middle depth is probably benign. A follow-up ultrasound in 6 months is recommended. A follow-up ultrasound in 6 months is recommended to demonstrate stability. This exam was interpreted at Station ID: [id number]. Electronically Signed By: Gil Way M.D. ddp/:10/28/2018 17:16:24 letter sent: Followup Recommended Ultrasound BI-RADS: 3 Probably benign
--- NOTE | 2018-10-28 08:41 | DI.MG.S_ITS ---
UNILATERAL LEFT DIGITAL DIAGNOSTIC MAMMOGRAM 3D/2D SHORT-TERM FOLLOW-UP: 10/28/2018 CLINICAL: Patient returns for a 6 month follow up of the left breast. Post clip. Comparison is made to exams dated: 08/12/2018 mammogram, 07/15/2018 mammogram, and 06/27/2018 mammogram - [facility]. The tissue of left breast is heterogeneously dense. This may lower the sensitivity of mammography. There is an oval equal density asymmetry with an indistinct margin in the left breast middle depth lateral region seen on the craniocaudal view only. This is less prominent. There also is a biopsy clip in the left breast central to the nipple anterior depth approaching 4:00. This correlates with the biopsy. There is an associated indistinct focal asymmetry. No other significant masses or calcifications are seen in the breast. IMPRESSION: INCOMPLETE: NEEDS ADDITIONAL IMAGING EVALUATION The oval equal density asymmetry in the left breast middle depth lateral region seen on the craniocaudal view only is indeterminate. An ultrasound is recommended. Biopsy clip with associated indistinct focal asymmetry in the left breast anterior depth at 4:00. An ultrasound is recommended. This exam was interpreted at Station ID: [id number]. NOTE: For mammograms, a report in lay terms will be sent to the patient. Approximately 15% of breast malignancies will not be visualized mammographically. In the management of a palpable breast mass, a negative mammogram must not discourage biopsy of a clinically suspicious lesion. Electronically Signed By: Gil Way M.D. ddp/:10/28/2018 09:26:40 ACR BI-RADS Category 0: Incomplete 3340F
== END ==
PROVIDERS: PCP Family Medicine; Visit Provider Family Medicine
DX: R92.8 Other abnormal and inconclusive findings on diagnostic imaging of breast (principal); D24.2 Benign neoplasm of left breast; N60.02 Solitary cyst of left breast
CPT/HCPCS: 76642; 77065; G0279

== ENCOUNTER → 2018-10-28 16:20 | Outpatient (CLI) | payer MEDICARE, OTHER, SELFPAY ==
[2018-10-28 17:37] LABS: Add Manual Diff / Slide Review NO; Basophils Absolute Auto 0 /uL (0-100); Basophils Percent Auto 0.8 % (0-2); Eosinophils Absolute Auto 100 /uL (0-450); Eosinophils Percent Auto 1.6 % (2-4); Hemoglobin 13.3 g/dL (12.0-16.0); Lymphocytes Absolute Auto 1100 /uL (1100-4500); Mean Corpuscular HGB Conc 33.2 % (30-36); Mean Corpuscular Hemoglobin 30.5 PG (26-34); Mean Corpuscular Volume 91.8 fL (80-100); Monocytes Absolute Auto 600 /uL (0-900); Monocytes Percent Auto 11.7 % (3-14); Neutrophils Absolute Auto 3400 /uL (1500-7000); Neutrophils Percent Auto 64.9 % (50-75); Platelet Count 150 X10^3/uL (150-400); Red Blood Cell Count 4.35 X10^6/uL (4.0-5.2); White Blood Cell Count 5.2 X10^3/uL (4.5-11.0)
[2018-10-28 17:57] LABS: Alanine Aminotransferase 28 IU/L (9-52); Albumin 4.7 g/dL (3.5-5.0); Albumin Globulin Ratio 1.7 (1.0-2.8); Alkaline Phosphatase 70 U/L (38-126); Aspartate Aminotransferase 27 IU/L (14-36); BUN Creatinine Ratio 34.4 (6-22); Bilirubin Total 0.6 mg/dL (0.2-1.3); Blood Urea Nitrogen 31 mg/dL (7-17); Calcium 10.4 mg/dL (8.4-10.2); Carbon Dioxide 24 mmol/L (22-32); Chloride 102 mmol/L (98-107); Estimated Glomerular Filt Rate > 60.0 mL/min (>60); Globulin 2.8 g/dL (1.7-4.1); Glucose 93 mg/dL (80-110); HEMOLYSIS < 15 (0-50); Potassium 4.6 mmol/L (3.4-5.1); Sodium 139 mmol/L (137-145); Total Protein 7.5 g/dL (6.3-8.2)
[2018-10-28 18:47] LABS: Vitamin B12 562 pg/mL (239-931)
[2018-11-02 16:06] LABS: Methylmalonic Acid 383 nmol/L (87-318)
[2018-11-02 16:24] LABS: Homocysteine 14.9 umol/L (< 10.4)
== END ==
PROVIDERS: PCP Family Medicine; Visit Provider Family Medicine
DX: D53.9 Nutritional anemia, unspecified (principal); R42 Dizziness and giddiness
CPT/HCPCS: 36415; 80053; 82607; 83090; 83921; 85025

== ENCOUNTER → 2018-12-28 09:57 | Outpatient (CLI) | payer MEDICARE, OTHER, SELFPAY ==
[2018-12-28 11:29] LABS: BUN Creatinine Ratio 31.3 (6-22); Blood Urea Nitrogen 25 mg/dL (7-17); Calcium 10.2 mg/dL (8.4-10.2); Carbon Dioxide 28 mmol/L (22-32); Chloride 102 mmol/L (98-107); Estimated Glomerular Filt Rate > 60.0 mL/min (>60); Glucose 101 mg/dL (80-110); HEMOLYSIS 19 (0-50); Potassium 4.5 mmol/L (3.4-5.1); Sodium 139 mmol/L (137-145)
[2018-12-28 11:32] LABS: Vitamin D 25 Hydroxy (D3) 41.4 ng/mL (30.0-100.0)
[2018-12-30 15:29] LABS: Homocysteine 12.1 umol/L (< 10.4)
[2018-12-30 15:45] LABS: Parathyroid Hormone Int 54 pg/mL (14-64)
[2018-12-30 23:30] LABS: Methylmalonic Acid 311 nmol/L (87-318)
== END ==
PROVIDERS: PCP Family Medicine; Visit Provider Family Medicine
DX: E53.8 Deficiency of other specified B group vitamins (principal); E83.52 Hypercalcemia; G60.9 Hereditary and idiopathic neuropathy, unspecified; D35.1 Benign neoplasm of parathyroid gland; M81.0 Age-related osteoporosis without current pathological fracture; I10 Essential (primary) hypertension
CPT/HCPCS: 36415; 80048; 82306; 83090; 83921; 83970

== ENCOUNTER 2019-01-06 02:32 | Emergency (ER) | payer MEDICARE, OTHER, SELFPAY ==
[2019-01-06 02:40] VITALS: BP 204/76; PULSE 87; RESP 16; TEMP 36.5; O2SAT 97; BMI 27.4
--- NOTE | 2019-01-06 02:56 | ED.SKABFB ---
HPI - Skin/Abscess/Foreign Bdy General Chief complaint: Skin/Abscess/Foreign Body Stated complaint: trouble breathing/cellulitis of cheek Time Seen by Provider: 01/06/19 02:33 Source: patient Mode of arrival: Family Vehicle Limitations: no limitations History of Present Illness HPI narrative: 78-year-old female who back in the middle of November received a scratch to the left side of her face from the family dog. While she was on vacation she developed an infection in this area. Was placed on doxycycline. She completed that course of the antibiotic. She states that this symptoms greatly improved but potentially did not completely resolve. Several days ago she started noticing redness in the same area again. 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 The plan was to start her back on doxycycline. She is now taking 50 mg 2 times a day. The plan is for her to take this for the next several weeks. If her symptoms do not improve then the plan to be is to do a biopsy. She saw her primary doctor yesterday. She comes into the emergency department today for congestion and problems breathing through her nose. She states she woke up in the middle the night like this. States that last night the same thing happen. She took a nasal spray which he thinks was Afrin which seemed to improve her symptoms. Also sitting up helps her symptoms as well. States this evening she did not take any of these nasal sprays. Related Data Home Medications Medication Instructions Recorded Confirmed aspirin 81 mg PO QDAY #0 09/02/12 01/05/19 metoprolol tartrate 25 mg tablet 25 mg PO .prn tab 07/16/17 01/05/19 Previous Rx's Medication Instructions Recorded lidocaine [Lidoderm] 1 patch TD Q12H #30 patch 03/25/18 doxepin 3 mg tablet 3 mg PO BEDTIME PRN #30 tab 05/25/18 atorvastatin 10 mg tablet 10 mg PO HS #90 tab 06/22/18 levothyroxine 50 mcg tablet 50 mcg PO DAILY #90 tab 08/29/18 1mg Estriol Vaginal perle See Rx Instructions .ROUTE 09/05/18 .COMPLEX #30 tab-cap lisinopril 20 mg tablet 40 mg PO QDAY #180 tab 10/18/18 estradiol 1 gram VAG .COMPLEX #42.5 gram 10/25/18 celecoxib 200 mg capsule 200 mg PO QDAY #90 cap 12/30/18 Allergies Allergy/AdvReac Type Severity Reaction Status Date / Time Penicillins [PENICILLINS] Allergy Mild RASH Verified 01/05/19 14:29 Review of Systems Constitutional Constitutional: Denies fever(s) ENT Ears, Nose, Mouth, and Throat: Denies facial pain, Denies post nasal drip and Denies sinus pressure Comments: Left-sided sinus congestion Cardiovascular Cardiovascular: Denies dyspnea Respiratory Respiratory: Denies dyspnea Integumentary/Breasts Comments: Redness the left side of face Hematologic/Lymphatic Hematologic/Lymphatic: Denies easy bleeding and Denies easy bruising Patient History Medical History Achilles tendon tear (Chronic 2012) Actinic keratosis (Resolved 2000) BCC (basal cell carcinoma of skin) (Resolved 2006) Burning sensation of foot (Chronic) Cardiac arrhythmia (Chronic 2013) Carpal tunnel syndrome (Resolved 2004) Cataract (Chronic 2011) Cataract (Chronic 2012) Chicken pox (Resolved 1949) Diverticular disease (Chronic 2015) Endometriosis (Resolved 1990) GERD (gastroesophageal reflux disease) (Chronic) Hearing loss (Chronic ~1946) Herniated lumbar intervertebral disc (Chronic 09/2013) History of heavy periods (Resolved 1989) Hypertension (Chronic 2000) Hypothyroidism (Chronic 2011) Measles (Resolved 1946) Neuropathy of both feet (Chronic) Osteoarthritis (Chronic 2000) Osteopenia (Chronic) Osteoporosis (Chronic) Otosclerosis (Chronic ~06/23/17) Parathyroid adenoma (Resolved 2013) Peripheral vascular disease (Chronic 2001) Skin cancer (Resolved 2001) Surgical History (Updated 09/23/17 @ 15:37 by Melany Mckeon) Anesthesia (Resolved) History of carpal tunnel repair (Resolved 2004) History of colonoscopy (Resolved 2015) History of ear surgery (Resolved 1998) History of endoscopy (Resolved 2010) Hx of total knee arthroplasty (Resolved 2013) Status post hysterectomy with oophorectomy (Resolved 1990) Status post parathyroidectomy (Resolved 2013) Family History Father Heart disease Hypertension Heart failure Diabetes mellitus Grandmother Dementia CVA (cerebral vascular accident) Mother Hypothyroid Dementia Breast cancer Brain bleed Grandfather CVA (cerebral vascular accident) Grandfather No problems noted. Grandmother No problems noted. Sister No problems noted. Social History Smoking Status: Former smoker alcohol intake frequency: 0-2 drinks per day Alcohol type: wine Substance Use Type: does not use Exam Initial Vital Signs Initial Vital Signs: Vital Signs Temperature 97.7 F 01/06/19 02:40 Pulse Rate 87 01/06/19 02:40 Respiratory Rate 16 01/06/19 02:40 Blood Pressure 204/76 H 01/06/19 02:40 Pulse Oximetry 97 01/06/19 02:40 Const General: cooperative and comfortable Orientation: alert, awake and oriented x3 HENMT Head: normal to inspection and normocephalic Ears: TM's normal bilaterally Nose: septum normal, No epistaxis, mucous membranes and turbinates abnormal (Swelling left inferior turbinate), nasal discharge and other (Redness not sided nose/face) Eyes Pupils: PERRL Resp Effort & Inspection: normal respiratory effort Cardio Rate: regular rate Skin Other: Patient with a half-dollar size redness on the left nasal labial fold extending out into the her left cheek and also on the left side of her nose. Extrem General: No edema Psych Appearance: grossly normal and well kempt Course Vital Signs Vital signs: Vital Signs - 8 hr 01/06/19 02:40 Temperature 97.7 F Pulse Rate 87 Respiratory Rate 16 Blood Pressure 204/76 H Pulse Oximetry 97 MDM - Skin/Abscess/Foreign Bdy MDM Narrative Medical decision making narrative: Patient's history and physical exam was consistent with sinus congestion her left nostril. Unsure this is related to allergies versus infection versus the cellulitis on the left side of her nose. She is currently not taking any decongestants. We did discuss the use of Claritin or Patience or Zyrtec and also Flonase and Nasonex. Feel like I would avoid systemic steroids given the infection to her left side of her face. This does not appear to be worsening per the patient's report. We did discuss other things to include nasal sprays. We will give the is a try before changing any antibiotics. I do not feel that she needs admitted to the hospital for this. Patient was given return precautions and follow-up instructions. She expressed understanding and agreement plan. Discharge Plan Departure Patient Disposition: Home Clinical Impression: Congestion of nasal sinus Cellulitis Qualifiers: Site of cellulitis: unspecified site Qualified Code(s): L03.90 - Cellulitis, unspecified Instructions: Antihistamine/Decongestant (By mouth) Activity Restrictions/Additional Instructions: Recommend you continue all of your medications as directed. I also recommend that you start taking either Claritin or Patience or Zyrtec or the generic version of these medications. You can buy them [id number]. Take them as directed. You can also consider taking either Flonase are Nasonex. Continue your antibiotics as directed. Return to the emergency department for any new or worsening symptoms Prescriptions: No Action aspirin 81 MG tablet,delayed release (DR/EC) 81 mg PO QDAY Qty: 0 RF: 0 lidocaine [Lidoderm] 5 % adhesive patch,medicated 1 patch TD Q12H Qty: 30 RF: 2 atorvastatin [Lipitor] 10 mg tablet 10 mg PO HS Qty: 90 RF: 3 levothyroxine 50 mcg tablet 50 mcg PO DAILY Qty: 90 RF: 3 1mg Estriol Vaginal perle 1 mg tablet See Rx Instructions .ROUTE .COMPLEX Qty: 30 RF: 0 lisinopril 20 mg tablet 40 mg PO QDAY Qty: 180 RF: 0 estradiol 0.01 % (0.1 mg/gram) cream 1 gram VAG .COMPLEX Qty: 42.5 RF: 1 celecoxib [Celebrex] 200 mg capsule 200 mg PO QDAY Qty: 90 RF: 0 metoprolol tartrate 25 mg tablet 25 mg PO .prn RF: 0 doxepin 3 mg tablet 3 mg PO BEDTIME PRN (Reason: insomnia) Qty: 30 RF: 1 Referrals: Filomena Martins DO [Primary Care Provider] -
[2019-01-06 03:00] VITALS: BP 150/64; RESP 16; O2SAT 97
== END 2019-01-06 03:00 | disposition home or self-care (01) ==
PROVIDERS: Emergency Provider Emergency Medicine; PCP Family Medicine
DX: R09.81 Nasal congestion (principal); J34.0 Abscess, furuncle and carbuncle of nose
CPT/HCPCS: 99282

== ENCOUNTER → 2019-02-02 12:00 | Oncology outpatient (ONC) | payer MEDICARE, OTHER, SELFPAY ==
[2019-01-27 12:46] VITALS: BP 175/61; PULSE 94; RESP 20; TEMP 36.6; O2SAT 98
[2019-01-27] MEDS: CEFTRIAXONE 2 GM/50 ML FROZ.PIGGY IV (13:26)
--- NOTE | 2019-01-27 13:31 | PC.NURSE ---
Pt arrived via home IV periperhal started. 24g right antecubital. will keep in per Dr. Martins so Pt can get ABX through the weekend.
[2019-01-28] MEDS: CEFTRIAXONE 2 GM/50 ML FROZ.PIGGY IV (12:24)
--- NOTE | 2019-01-28 12:29 | PC.NURSE ---
Addendum entered by Fanta Silva R.N. 01/28/19 13:25: Pt's infusion ended at 1320. IV site was flushed with NS, stocking net and coband changed for her comfort. pt left AC floor at 1325 Original Note: Pt arrived on the AC floor at approx. 1025. She was made comfortable in rm 201. Vital signs BP 168/64, HR 86 RR18 100% O2 sat RA. Infusion of Rocephin started at 1230
[2019-01-29 12:23] VITALS: BP 170/79; PULSE 86; RESP 14; TEMP 36.4; O2SAT 99
[2019-01-29] MEDS: CEFTRIAXONE 2 GM/50 ML FROZ.PIGGY IV (12:28)
--- NOTE | 2019-01-29 12:36 | PC.NURSE ---
Addendum entered by Chantel Jackson R.N. 01/29/19 13:15: Patient A/Ox4, Abx complete, IV site CDI, flushed per protocol. Patient tolerated infusion well. Original Note: Patient A/Ox4, vital signs taken, IV site flushed per protocol, patient tolerated well. Abx hung, call light in reach. Will continue to monitor.
[2019-01-30] MEDS: CEFTRIAXONE 2 GM/50 ML FROZ.PIGGY IV (13:18)
[2019-01-30 13:39] VITALS: BP 142/65; PULSE 73; RESP 16; TEMP 36.7; O2SAT 99
[2019-01-31] MEDS: CEFTRIAXONE 2 GM/50 ML FROZ.PIGGY IV (13:05)
[2019-02-01] MEDS: CEFTRIAXONE 2 GM/50 ML FROZ.PIGGY IV (12:52)
[2019-02-02 12:09] VITALS: BP 141/61; PULSE 82; RESP 16; TEMP 36.3; O2SAT 100
[2019-02-02] MEDS: CEFTRIAXONE 2 GM/50 ML FROZ.PIGGY IV (12:22)
== END ==
PROVIDERS: PCP Family Medicine; Visit Provider Family Medicine
DX: A46 Erysipelas (principal)
CPT/HCPCS: 96365; J0696

== ENCOUNTER → 2019-04-03 10:06 | Outpatient (CLI) | payer MEDICARE, OTHER, SELFPAY ==
[2019-04-03 10:47] LABS: BUN Creatinine Ratio 24.4 (6-22); Blood Urea Nitrogen 22 mg/dL (7-17); Calcium 10.5 mg/dL (8.4-10.2); Carbon Dioxide 30 mmol/L (22-32); Chloride 103 mmol/L (98-107); Estimated Glomerular Filt Rate > 60.0 mL/min (>60); Glucose 102 mg/dL (80-110); HEMOLYSIS < 15 (0-50); Potassium 4.4 mmol/L (3.4-5.1); Sodium 141 mmol/L (137-145)
[2019-04-05 16:13] LABS: Homocysteine 9.9 umol/L (< 10.4)
[2019-04-05 18:56] LABS: Methylmalonic Acid 237 nmol/L (87-318)
== END ==
PROVIDERS: PCP Family Medicine; Referring Provider Family Medicine; Visit Provider Family Medicine
DX: E53.8 Deficiency of other specified B group vitamins (principal); E72.11 Homocystinuria; I10 Essential (primary) hypertension
CPT/HCPCS: 36415; 80048; 83090; 83921

== ENCOUNTER → 2019-04-05 10:03 | Outpatient (CLI) | payer MEDICARE, OTHER, SELFPAY | PROVIDERS: PCP Family Medicine; Referring Provider Family Medicine; Visit Provider Family Medicine | DX: E53.8 Deficiency of other specified B group vitamins (principal) | CPT/HCPCS: 36415; 81291 ==

== ENCOUNTER → 2019-04-10 09:00 | Outpatient (CLI) | payer MEDICARE, OTHER, SELFPAY ==
--- NOTE | 2019-04-10 | DI.US.S_ITS ---
LIMITED ULTRASOUND OF RIGHT BREAST: 04/10/2019 CLINICAL: Patient returns today to evaluate a density in the right breast. Comparison is made to exams dated: 04/10/2019 mammogram, 10/28/2018 ultrasound, 10/28/2018 mammogram, 08/12/2018 ultrasound biopsy, 08/12/2018 mammogram, and 07/15/2018 ultrasound [facility]. Color flow and real-time ultrasound of the right breast 4 o'clock region were performed. Matos scale images of the real-time examination were reviewed. There is a dilated duct amidst a cluster of irregular cysts in the right breast at 4 o'clock anterior depth. This area is mixed cystic and hypoechoic solid tissue and measures 2.7 x 1.3 cm. Some cysts demonstrate internal low level echos. This possibly correlates with mammography findings. Color flow imaging demonstrates that there is no vascularity present. IMPRESSION: PROBABLY BENIGN The cluster of irregular cysts in the right breast may represent apocrine metaplasia vs focal ductal ectasia and is probably benign. Follow-up mammogram and ultrasound in 6 months is recommended. Findings and recommendations were conveyed to the patient at time of exam. This exam was interpreted at Station ID: [id number]. Electronically Signed By: Shila jin/:04/10/2019 14:07:15 letter sent: Followup Recommended Ultrasound BI-RADS: 3 Probably benign
--- NOTE | 2019-04-10 09:03 | DI.US.S_ITS ---
LIMITED ULTRASOUND OF LEFT BREAST: 04/10/2019 CLINICAL: Patient returns today to evaluate a density in the left breast. Comparison is made to exams dated: 04/10/2019 mammogram, 10/28/2018 mammogram, 08/12/2018 ultrasound biopsy, 08/12/2018 mammogram, 07/15/2018 ultrasound, and 07/15/2018 mammogram - [facility]. Color flow and real-time ultrasound of the left breast 4 o'clock, and retroareolar regions were performed. Matos scale images of the real-time examination were reviewed. There is a dilated duct in the left breast at 4 o'clock middle depth. This abnormality is less prominent and correlates with mammography findings and the previous biopsy. There is an associated biopsy clip. Color flow imaging demonstrates that there is no vascularity present. There also is benign duct ectasia in the left breast at 4 o'clock anterior depth. Additionally, there is a stable benign 0.3 cm x 0.2 cm x 0.2 cm oval cyst in the left breast at 4 o'clock anterior depth 5 cm from the nipple. No significant abnormalities were seen sonographically in the left breast. IMPRESSION: PROBABLY BENIGN The dilated duct in the left breast at 4 o'clock middle depth, previous biopsied papilloma is less prominent and is probably benign. However continued follow up with ultrasound in 6 months to demonstrate stability is recommended. The duct ectasia in the left breast at 4 o'clock anterior depth is benign. The stable 0.3 cm x 0.2 cm x 0.2 cm oval cyst in the left breast at 4 o'clock anterior depth is benign. Findings and recommendations were conveyed to the patient at time of exam. This exam was interpreted at Station ID: [id number]. Electronically Signed By: Shila jin/:04/10/2019 14:00:10 letter sent: Followup Recommended Ultrasound BI-RADS: 3 Probably benign
--- NOTE | 2019-04-10 09:03 | DI.MG.S_ITS ---
BILATERAL DIGITAL DIAGNOSTIC MAMMOGRAM 3D/2D: 04/10/2019 CLINICAL: Patient returns for a 6 month follow up of the left breast, due for bilateral imaging per physician. Comparison is made to exams dated: 07/15/2018 mammogram, 06/27/2018 mammogram, 06/24/2017 mammogram, 05/25/2016 mammogram, 10/28/2018 ultrasound, and 10/28/2018 mammogram - [facility]. The tissue of both breasts is heterogeneously dense. This may lower the sensitivity of mammography. There is an 8 mm oval asymmetry with an obscured margin in the right breast at 5 o'clock anterior depth. This is seen in additional views. This is increased in size. There is a titanium marker clip in the left breast at 6 o'clock anterior depth. No distince increasing asymmetries are associated. No other discrete asymmetries are seen in the left breast. No other significant masses or calcifications are seen in either breast. IMPRESSION: INCOMPLETE: NEEDS ADDITIONAL IMAGING EVALUATION The 8 mm oval asymmetry in the right breast at 5 o'clock anterior depth is indeterminate. An ultrasound is recommended. The titanium marker clip in the left breast at 6 o'clock anterior depth is associated with biopsy proven papilloma. The patient wishes follow up rather than excision, and therefore continued ultrasound followup is recommended. The other previously seen left breast asymmetries were no longer seen, but target ultrasound to these areas, 4 and 5 o'clock is recommended to document stability. Bilateral ultrasound was performed immediately following this exam. This exam was interpreted at Station ID: [id number]. NOTE: For mammograms, a report in lay terms will be sent to the patient. Approximately 15% of breast malignancies will not be visualized mammographically. In the management of a palpable breast mass, a negative mammogram must not discourage biopsy of a clinically suspicious lesion. Electronically Signed By: Shila jin/:04/10/2019 13:45:06 ACR BI-RADS Category 0: Incomplete [id number]
== END ==
PROVIDERS: PCP Family Medicine; Referring Provider Family Medicine; Visit Provider Family Medicine
DX: R92.8 Other abnormal and inconclusive findings on diagnostic imaging of breast (principal); D24.2 Benign neoplasm of left breast; N64.89 Other specified disorders of breast; N60.42 Mammary duct ectasia of left breast; N60.02 Solitary cyst of left breast; N60.01 Solitary cyst of right breast
CPT/HCPCS: 76642; 77066; G0279

== ENCOUNTER → 2019-04-11 08:42 | Outpatient (CLI) | payer MEDICARE, OTHER, SELFPAY ==
[2019-04-13 15:46] LABS: Parathyroid Hormone Int 75 pg/mL (14-64)
== END ==
PROVIDERS: PCP Family Medicine; Referring Provider Family Medicine; Visit Provider Family Medicine
DX: D35.1 Benign neoplasm of parathyroid gland (principal); E83.52 Hypercalcemia
CPT/HCPCS: 36415; 83970

== ENCOUNTER 2019-08-07 14:30 | Outpatient (RCR) | payer MEDICARE, OTHER, SELFPAY ==
--- NOTE | 2019-07-24 11:12 | ST.OPIE ---
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 She has noticed changes in memory and organizational skills within last year and a general sense of disorganization and not feeling grounded. Examples of difficulties include keeping track of knitting patterns, remembering her children's dates, organizing a quilting project, following written instructions, and learning to use text messaging on her cell phone. She is concerned about dementia, as her Mother and grandmother had dementia, her mother at pt's same age. To compensate, the pt has been using notes and lists to recall information and has recently established a morning routine of checking the date and writing out her daily schedule. Her daughter is an Occupational Therapist who recommended this, and the pt has found it to be helpful. The pt lives with her 85-yr- old , who is undergoing treatment for cancer cx tx for chronic lymphocytic leukemia. She is his primary caregiver and doing well with those tasks, relying on her nursing skills which she says come easily to her. The pt has a phone appointment with a Neuropsychologist on for further evaluation. Hearing Auditory History Mildly impaired. Pt does not wear hearing aids. Vision Vision Status Not Impaired [place] Language Language(s) Spoken in the Home [place] Occupational Status Occupation Status Retired Geriatric Nurse Previous Therapy Previous Speech-Language Therapy No Subjective Subjective The pt arrived on time unaccompanied. She provided detailed case history and concerns. - Informal Assessment Receptive Language Normal Yes Expressive Language Normal Yes Articulation Normal Yes Cognition Normal No Formal Assessment Standardized Test Scales of Cognitive & Communicative Ability for Neurorehabilitation (SCCAN) Administration Complete Raw Score 86 Standard Score SCCAN Index 86 Percentile Rank 19 Results Degree of Severity: Mild The pt scored 100% in Oral Expression, Orientation, Reading Comprehension, and Writing subtests. Memory 63% Speech Comprehension 92% Attention 94% Problem Solving 96% - Cognition Orientation Skill Level WNL Attention Skill Level WFL Problem Solving/Reasoning/Judgment Skill Level WFL Divergent Naming Skill Level WNL Category Naming/Identification Skill Level WFL Sequencing Skill Level WNL Clock Drawing Skill Level WNL - Memory Short Term Memory Skill Level Moderately Impaired Comments Most significant errors in delayed recall. Immediate Recall Skill Level WN Word Recall Skill Level WFL - Findings Cognitive/Memory Impressions The pt presents with mild deficits in overall cognitive communication skills, with moderate deficits in memory. She approached all tasks in an organized manner (e.g., left to right scanning, initial placement of 12-3-6-9 in clock drawing). She presented an error in immediate recall of medication presentation and carried over the error to delayed recall. Both memory recall and memory recognition appear to be impacted, with recognition better than recall . The pt exhibited detailed and speedy completion of sequencing and organizational tasks presented in the test. However, many of her examples of functional difficulties involve organizing thoughts, following instructions, and learning new tasks. This warrants further evaluation in these areas in order to guide POC to maintain the pt's highest level of independence and ability to provide care for her . Recommendations Recommendations Evaluation by Neuropsychologist (already in place) to determine if dementia is present. Skilled Speech Pathology intervention (1x/wk for 8 wks) targeting cognitive communication skills including short-term and working memory , following written and oral instructions, executive function skills including organization and planning. The pt was educated on testing results and recommended POC. She verbalized understanding and was in agreement with recommendations. Treatment Goals Short Term Goals 1. The pt will establish external memory tools (e.g., calendar use, using written notes, establishing new routines, etc.) to maintain highest level of independence and recall important information. 2. The pt will demonstrate understanding of internal memory strategies by recalling 3 or more potential strategies across 3 sessions. 3. The pt will follow moderately complex written instructions with 80% accuracy to improve reading and executive function skills and return to hobbies. Fpc Goals 1. The pt will use external memory tools independently to recall and complete important information and tasks and maintain highest level of independence. 2. Using internal memory tools as needed, the pt will recall functional information (e.g., children's dates) with 80% accuracy to improve memory skills and quality of life. 3. The pt will complete an unfamiliar simple craft project of her choosing with min assist to improve ability to perform daily tasks and responsibilities, return to hobbies, and improve quality of life. Referrals Other Neuropsychology (already in place) Total Time Full Evaluation Time 60
--- NOTE | 2019-07-31 15:31 | ST.OPTN ---
Visit Care Team Role Provider Type Filomena Martins DO Attending Provider Physician Primary Care Provider Referring Provider Address: [address] [place] [address], [address], [place], [address] HOSPICE [employer]ICAL MARKETER Treatment Note HOSPICE CLINICAL MARKETER Treatment Note Start: 07/24/19 09:35 Freq: Status: Active Protocol: Document 07/31/19 15:23 CORA (Rec: 07/31/19 15:31 CORA [email or web address]) Speech Pathology Treatment Note Session Time Visit Start Time 14:30 Visit Stop Time 15:15 Total Visit Minutes 45 Visit Information Visit Number 02/24 Insurance Information Medicare Setting Treatment Setting Outpatient Care Visit Type Note Type Treatment Note Next Note Type Next Note Type Treatment Note Subjective Observations/Patient Presentation The pt arrived on time. No new complaints. She reported being able to remember the clinician's first name but not last name, which she needed to look up. Chief Complaint(s) Cognitive Objective Treatment Activities Educated pt on external vs internal memory tools. Established Memory Notebook. Initiated instruction of internal memory strategies. Pt recorded strategies in memory notebook. Initiated training in use of association to recall HOSPICE CLINICAL MARKETER's first and last names. The pt wrote clinician' s name and associations in memory notebook and recalled HOSPICE CLINICAL MARKETER's full name independently at end of session. Assessment Patient Response to Treatment Good Rehab Potential Good Impairments Identified Cognitive-Linguistic Skills Additional Impairments Identified Possible dementia - awaiting neuropsych evaluation Progress Towards Goals Good Progress Assessment of Improvement The pt was highly receptive and responsive to education and training provided. She eagerly participated in development of memory notebook , including 4 sections. Using association techniques, she exhibited delayed recall of HOSPICE CLINICAL MARKETER's first and last names. Reviewed with Patient Goals,Progress Being Made,Home Exercise Program Patient/Caregiver Understanding Excellent Plan Amount of Therapy Recommended 2-3 Months Frequency of Treatment Once a Week Length of Session 45 Minutes Treatment Emphasis Next Session F/u on memory notebook; initiate following written ( phone) instructions Therapeutic Contents Client Education,Cognitive- Linguistic Training,Home Exercise Program Provided Patient/Caregiver Instruction Home Exercise Program,Plan of Care,Questions/Concerns Therapy Recommendations Continue with Current Program
--- NOTE | 2019-08-07 17:36 | ST.OPTN ---
Visit Care Team Role Provider Type Filomena Martins DO Attending Provider Physician Primary Care Provider Referring Provider Address: [address] [place] [address], [address], [place], [address] HOURLY ASSOCIATE Treatment Note HOURLY ASSOCIATE Treatment Note Start: 07/24/19 09:35 Freq: Status: Active Protocol: Document 08/07/19 17:24 CORA (Rec: 08/07/19 17:24 CORA [email or web address]) Speech Pathology Treatment Note Session Time Visit Start Time 14:30 Visit Stop Time 15:20 Total Visit Minutes 50 Visit Information Visit Number 03/[id number] Plan of Care Dates 07/24/19 - 10/24/19 Insurance Information Medicare Setting Treatment Setting Outpatient Care Visit Type Note Type Treatment Note Next Note Type Next Note Type Treatment Note General Information General Information 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 She has noticed changes in memory and organizational skills within last year and a general sense of disorganization and not feeling grounded. Examples of difficulties include keeping track of knitting patterns, remembering her children's dates, organizing a quilting project, following written instructions, and learning to use text messaging on her cell phone. She is concerned about dementia, as her Mother and grandmother had dementia, her mother at pt's same age. To compensate, the pt has been using notes and lists to recall information and has recently established a morning routine of checking the date and writing out her daily schedule. Her daughter is an Occupational Therapist who recommended this, and the pt has found it to be helpful. The pt lives with her 85-yr- old , who is undergoing treatment for cancer cx tx for chronic lymphocytic leukemia. She is his primary caregiver and doing well with those tasks, relying on her nursing skills which she says come easily to her. The pt has a phone appointment with a Neuropsychologist on for further evaluation. Subjective Observations/Patient Presentation The pt arrived on time. No new complaints. She brought with her the memory notebook initiated at last session and which the pt had further developed. She also brought her phone with her for assistance in learning how to text. The pt also had questions RE things she should be thinking about and planning for in the event dementia dx is confirmed. Chief Complaint(s) Cognitive Objective Short Term Goals 1. The pt will establish external memory tools (e.g., calendar use, using written notes, establishing new routines, etc.) to maintain highest level of independence and recall important information. 2. The pt will demonstrate understanding of internal memory strategies by recalling 3 or more potential strategies across 3 sessions. 3. The pt will follow moderately complex written instructions with 80% accuracy to improve reading and executive function skills and return to hobbies. [facility] Goals 1. The pt will use external memory tools independently to recall and complete important information and tasks and maintain highest level of independence. 2. Using internal memory tools as needed, the pt will recall functional information (e.g., children's dates) with 80% accuracy to improve memory skills and quality of life. 3. The pt will complete an unfamiliar simple craft project of her choosing with min assist to improve ability to perform daily tasks and responsibilities, return to hobbies, and improve quality of life. Treatment Activities Education was provided and recommendations were made RE components of life that may be helpful for the pt to make decisions about now in order to plan for future if dementia dx is confirmed. This included prioritizing responsibilities and activities that she wishes to continue to participate in, how she wishes to communicate with her family/friends, how she wishes to receive assistance from others as needed, and eventually to consider priorities in living arrangements should the need to live outside her own home arise. The pt was receptive to and in agreement with this, although at times emotional in the discussion. Further developed memory notebook, about which the pt continues to show appreciation and enthusiasm. Using associations established in last session, the pt recalled the clinician's first and last names with min cues. Initiated training of texting with smart phone via written and oral instructions. The pt followed oral instructions with occ demonstration and v/v cues and successfully added a contact to her phone and sent 2 text messages. Written instructions were provided for home practice. Discussed POC. The pt will be out of town next week and was agreeable to continuing tx at 1- or 2-wk intervals. Assessment Patient Response to Treatment Good Rehab Potential Good Impairments Identified Cognitive-Linguistic Skills Additional Impairments Identified Possible dementia - awaiting neuropsych evaluation Progress Towards Goals Good Progress Assessment of Overall Progress Improving Assessment of Improvement The pt was highly receptive and responsive to education and training provided. She demonstrated good use and further development of her memory notebook. She recalled the clinician's first and last names with min cues using associations established at last session, demonstrating understanding and their use. She followed oral instructions well to successfully perform 3 tasks with her cell phone. Reviewed with Patient Goals,Progress Being Made,Home Exercise Program Patient/Caregiver Understanding Excellent Plan Amount of Therapy Recommended 2-3 Months Frequency of Treatment Once a Week Length of Session 45 Minutes Treatment Emphasis Next Session F/u on memory notebook and following written (phone) instructions Therapeutic Contents Client Education,Cognitive- Linguistic Training,Home Exercise Program Provided Patient/Caregiver Instruction Home Exercise Program,Plan of Care,Questions/Concerns Therapy Recommendations Continue with Current Program
--- NOTE | 2019-11-21 14:21 | ST.OPDS ---
Visit Care Team Role Provider Type Filomena Martins DO Attending Provider Physician Primary Care Provider Referring Provider Address: [address] [place] [address], [address], [place], [address] QA CONSULTANT Treatment Note QA CONSULTANT Treatment Note Start: 07/24/19 09:35 Freq: Status: Active Protocol: Document 11/21/19 14:20 CORA (Rec: 11/21/19 14:21 CORA [id number]) Speech Pathology Treatment Note Visit Information Plan of Care Dates 07/24/19 - 10/24/19 Insurance Information Medicare Setting Treatment Setting Outpatient Care Visit Type Note Type Discharge Summary General Information General Information 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 She has noticed changes in memory and organizational skills within last year and a general sense of disorganization and not feeling grounded. Examples of difficulties include keeping track of knitting patterns, remembering her children's dates, organizing a quilting project, following written instructions, and learning to use text messaging on her cell phone. She is concerned about dementia, as her Mother and grandmother had dementia, her mother at pt's same age. To compensate, the pt has been using notes and lists to recall information and has recently established a morning routine of checking the date and writing out her daily schedule. Her daughter is an Occupational Therapist who recommended this, and the pt has found it to be helpful. The pt lives with her 85-yr- old , who is undergoing treatment for cancer cx tx for chronic lymphocytic leukemia. She is his primary caregiver and doing well with those tasks, relying on her nursing skills which she says come easily to her. The pt has a phone appointment with a Neuropsychologist on for further evaluation. Subjective Observations/Patient Presentation The pt was last seen 08/07/19. Pt is now out of POC dates and will be discharged from skilled intervention. Chief Complaint(s) Cognitive Objective Short Term Goals 1. The pt will establish external memory tools (e.g., calendar use, using written notes, establishing new routines, etc.) to maintain highest level of independence and recall important information. 2. The pt will demonstrate understanding of internal memory strategies by recalling 3 or more potential strategies across 3 sessions. 3. The pt will follow moderately complex written instructions with 80% accuracy to improve reading and executive function skills and return to hobbies. [facility] Goals 1. The pt will use external memory tools independently to recall and complete important information and tasks and maintain highest level of independence. 2. Using internal memory tools as needed, the pt will recall functional information (e.g., children's dates) with 80% accuracy to improve memory skills and quality of life. 3. The pt will complete an unfamiliar simple craft project of her choosing with min assist to improve ability to perform daily tasks and responsibilities, return to hobbies, and improve quality of life. Plan Therapy Recommendations Discharge from Speech Therapy
== END 2019-12-04 09:15 ==
LOC: SP 14:30
PROVIDERS: PCP Family Medicine; Referring Provider Family Medicine; Visit Provider Family Medicine
DX: R41.89 Other symptoms and signs involving cognitive functions and awareness (principal)
CPT/HCPCS: 96125; 97129; 97130

== ENCOUNTER → 2019-10-03 08:37 | Outpatient (CLI) | payer MEDICARE, OTHER, SELFPAY ==
--- NOTE | 2019-10-03 08:39 | DI.US.S_ITS ---
ULTRASOUND OF RIGHT BREAST: 10/03/2019 CLINICAL: 6 month follow-up of cysts. Comparison is made to exams dated: 10/03/2019 mammogram, 04/10/2019 ultrasound, and 04/10/2019 mammogram - [facility]. Color flow and real-time ultrasound of the right breast were performed. Matos scale images of the real-time examination were reviewed. There is a dilated duct amidst a cluster of complicated cysts in the right breast at 4 o'clock anterior depth. This area is mixed cystic and hypoechoic solid tissue and measures 3.4 x 2.6 x 1.6 cm. Some cysts demonstrate internal low level echos. This possibly correlates with mammography findings. Color flow imaging demonstrates that there is no vascularity present. No significant change in appearance of two immediately adjacent cysts at 3 o'clock, 3 cm from the nipple measuring in combined dimension of 0.9 cmx 0.5 cm x 0.5cm. IMPRESSION: PROBABLY BENIGN The cluster of irregular cysts in the right breast may represent apocrine metaplasia vs focal ductal ectasia and is probably benign. A follow-up mammogram and an ultrasound in 6 months is recommended to demonstrate stability. Findings and recommendations were conveyed to the patient during today's visit. This exam was interpreted at Station ID: [id number]. Electronically Signed By: Abebe Rojas M.D. aty/:10/03/2019 17:07:50 letter sent: Followup Recommended Ultrasound BI-RADS: 3 Probably benign
--- NOTE | 2019-10-03 08:39 | DI.US.S_ITS ---
ULTRASOUND OF LEFT BREAST: 10/03/2019 CLINICAL: 6 month follow-up of cysts. Comparison is made to exams dated: 10/03/2019 mammogram, 04/10/2019 ultrasound, 04/10/2019 mammogram, 10/28/2018 ultrasound, 10/28/2018 mammogram, and 08/12/2018 ultrasound [facility]. Color flow and real-time ultrasound of the left breast were performed. Matos scale images of the real-time examination were reviewed. There is a dilated duct in the left breast at 4 o'clock middle depth. This abnormality is less prominent and correlates with mammography findings and the previous biopsy. There is an associated biopsy clip. Color flow imaging demonstrates that there is no vascularity present. The benign 0.3 cm x 0.2 cm x 0.2 cm oval cyst in the left breast at 4 o'clock anterior depth 5 cm from the nipple is no longer seen. IMPRESSION: PROBABLY BENIGN The dilated duct in the left breast at 4 o'clock middle depth correlates with site of prior biopsy which pathology indicated papilloma. The patient was referred for surgical consultation and requested imaging follow up in lieu of surgical excision. This is again probably benign. A follow-up mammogram and an ultrasound in 6 months is recommended to demonstrate stability. Findings and recommendations were conveyed to the patient during today's evaluation. This exam was interpreted at Station ID: [id number]. Electronically Signed By: Abebe Rojas M.D. aty/:10/03/2019 16:58:05 letter sent: Followup Recommended Ultrasound BI-RADS: 3 Probably benign
--- NOTE | 2019-10-03 08:39 | DI.MG.S_ITS ---
BILATERAL DIGITAL DIAGNOSTIC MAMMOGRAM 3D/2D SHORT-TERM FOLLOW-UP: 10/03/2019 CLINICAL: Patient returns for a 6 month follow up of bilateral breasts. Comparison is made to exams dated: 04/10/2019 mammogram, 10/28/2018 mammogram, and 06/27/2018 mammogram - [facility]. The tissue of both breasts is heterogeneously dense. This may lower the sensitivity of mammography. There is a persistent 8 mm oval asymmetry with an obscured margin in the right breast at 5 o'clock anterior depth. This is seen in additional views and has not significantly changed. There is a titanium marker clip in the left breast at 6 o'clock anterior depth correlating with biopsy proven intraductal papilloma. This is not significantly changed. No other significant masses or calcifications are seen in either breast. IMPRESSION: INCOMPLETE: NEEDS ADDITIONAL IMAGING EVALUATION The stable 8 mm oval asymmetry in the right breast at 5 o'clock anterior depth is indeterminate. An ultrasound is recommended and scheduled to immediately follow this exam. The titanium marker clip in the left breast at 6 o'clock anterior depth correlates with biopsy proven papilloma which patient chose to follow by imaging. An ultrasound is recommended to further evaluate and is scheduled to immediately follow this exam. This exam was interpreted at Station ID: [id number]. NOTE: For mammograms, a report in lay terms will be sent to the patient. Approximately 15% of breast malignancies will not be visualized mammographically. In the management of a palpable breast mass, a negative mammogram must not discourage biopsy of a clinically suspicious lesion. Electronically Signed By: Abebe Rojas M.D. aty/:10/03/2019 09:57:37 ACR BI-RADS Category 0: Incomplete 3340F
== END ==
PROVIDERS: PCP Family Medicine; Referring Provider Family Medicine; Visit Provider Family Medicine
DX: R92.8 Other abnormal and inconclusive findings on diagnostic imaging of breast (principal); D24.2 Benign neoplasm of left breast; N60.42 Mammary duct ectasia of left breast
CPT/HCPCS: 76642; 77066; G0279

== ENCOUNTER → 2019-10-04 09:19 | Outpatient (CLI) | payer MEDICARE, OTHER, SELFPAY ==
[2019-10-04 10:39] LABS: BUN Creatinine Ratio 28.9 (6-22); Blood Urea Nitrogen 28 mg/dL (7-17); Calcium 9.9 mg/dL (8.4-10.2); Carbon Dioxide 29 mmol/L (22-32); Chloride 100 mmol/L (98-107); Estimated Glomerular Filt Rate 55.4 mL/min (>60); Glucose 102 mg/dL (80-110); HEMOLYSIS < 15 (0-50); Phosphorous 3.6 mg/dL (2.8-4.1); Sodium 137 mmol/L (137-145)
[2019-10-04 10:53] LABS: Vitamin D 25 Hydroxy (D3) 53.1 ng/mL (30.0-100.0)
[2019-10-04 11:05] LABS: TSH w/ Reflex to FT4 1.73 uIU/mL (0.47-4.68)
[2019-10-05 07:09] LABS: Parathyroid Hormone Int 68 pg/mL (15-65)
[2019-10-10 12:07] LABS: Calcium 24 Hour Urine 37 mg/day (100-300); Calcium Urine Random 3.7 mg/dL; Collection Time Urine 24 Hours; Total Volume Urine 1000 mL
== END ==
PROVIDERS: PCP Family Medicine; Referring Provider Family Medicine; Visit Provider Family Medicine
DX: E83.52 Hypercalcemia (principal); D35.1 Benign neoplasm of parathyroid gland; E03.9 Hypothyroidism, unspecified; M85.80 Other specified disorders of bone density and structure, unspecified site; G31.84 Mild cognitive impairment of uncertain or unknown etiology; D69.6 Thrombocytopenia, unspecified; E53.8 Deficiency of other specified B group vitamins; E72.11 Homocystinuria
CPT/HCPCS: 36415; 80048; 81291; 82306; 82340; 83970; 84100; 84443

== ENCOUNTER → 2019-10-11 08:09 | Outpatient (CLI) | payer MEDICARE, OTHER, SELFPAY ==
--- NOTE | 2019-10-11 08:10 | DI.MRI.S_ITS ---
PROCEDURE: MR HEAD/BRAIN WO CON INDICATIONS: memory loss, anosmia TECHNIQUE: Non-contrast axial T1 spin echo, axial T2 fast spin echo, sagittal and axial FLAIR, coronal T2 fast spin echo, axial gradient echo, axial diffusion and ADC through the brain. COMPARISON: None. FINDINGS: Image quality: Excellent. CSF spaces: Ventricles appear symmetric in size and shape. Basal cisterns are patent. No extra-axial fluid collections. Brain: No intracranial bleeds or mass effects. There is cerebral volume loss for age. There are periventricular and deep white matter chronic small vessel ischemic changes. Brainstem appears normal. Diffusion-weighted images show no acute ischemic insults. No chronic ischemic insults. Normal intravascular flow voids are present. Skull and face: Calvarial bone marrow is normal in signal. Orbits are normal. Note is made of bilateral lens replacements. Sinuses: Sinuses and mastoids are clear. IMPRESSION: Unremarkable intracranial study for age, with brain parenchymal volume loss and chronic small vessel ischemic change. Dictated by: Gonzalez Dudley M.D. on 10/11/2019 at 8:52 Approved by: Gonzalez Dudley M.D. on 10/11/2019 at 8:53
== END ==
PROVIDERS: PCP Family Medicine; Referring Provider Family Medicine; Visit Provider Family Medicine
DX: G31.84 Mild cognitive impairment of uncertain or unknown etiology (principal); G60.9 Hereditary and idiopathic neuropathy, unspecified; R43.0 Anosmia
CPT/HCPCS: 70551

== ENCOUNTER → 2020-03-13 10:18 | Outpatient (CLI) | payer MEDICARE, OTHER, SELFPAY ==
[2020-03-13] MEDS: COVID-19 VACC #1, MRNA(MOD) 100 MCG/0.5 ML VIAL IM (10:22)
== END ==
PROVIDERS: PCP Family Medicine; Visit Provider Internal Medicine
DX: Z23 Encounter for immunization (principal)
CPT/HCPCS: 0011A; 91301

== ENCOUNTER → 2020-03-22 12:28 | Outpatient (CLI) | payer MEDICARE, OTHER, SELFPAY ==
--- NOTE | 2020-03-22 12:30 | DI.MG.S_ITS ---
BILATERAL DIGITAL DIAGNOSTIC MAMMOGRAM 3D/2D SHORT-TERM FOLLOW-UP: 03/22/2020 CLINICAL: Patient returns for a 6 month follow up of bilateral breasts. Comparison is made to exams dated: 10/03/2019 mammogram, 04/10/2019 mammogram, 06/27/2018 mammogram, 10/03/2019 ultrasound, 10/03/2019 ultrasound, and 06/24/2017 mammogram - [facility]. The tissue of both breasts is extremely dense, which lowers the sensitivity of mammography. There is an 8 mm oval focal asymmetry with an obscured margin in the right breast at 5 o'clock anterior depth. This is more prominent. There is a biopsy clip in the right breast. Possible asymmetry in the left breast at 6 o'clock anterior depth. This is not significantly changed and correlates with the biopsy. No other significant masses or calcifications are seen in either breast. IMPRESSION: INCOMPLETE: NEEDS ADDITIONAL IMAGING EVALUATION 1) The 8 mm oval focal asymmetry in the right breast at 5 o'clock anterior depth is indeterminate. -A targeted ultrasound is recommended and will immediately follow. 2) Possible asymmetry in the left breast at 6 o'clock anterior depth at the prior biopsy site is indeterminate. -A targeted ultrasound is recommended and will immediately follow. This exam was interpreted at Station ID: [id number]. NOTE: For mammograms, a report in lay terms will be sent to the patient. Approximately 15% of breast malignancies will not be visualized mammographically. In the management of a palpable breast mass, a negative mammogram must not discourage biopsy of a clinically suspicious lesion. Electronically Signed By: Jose Rodas M.D. slc/:03/22/2020 13:20:30 ACR BI-RADS Category 0: Incomplete 3340F
--- NOTE | 2020-03-22 12:30 | DI.US.S_ITS ---
LIMITED ULTRASOUND OF RIGHT BREAST AND AXILLA: 03/22/2020 CLINICAL: Patient returns today to evaluate focal asymmetries in the right breast. Comparison is made to exams dated: 03/22/2020 mammogram, 10/03/2019 ultrasound, 10/03/2019 ultrasound, 10/03/2019 mammogram, and 04/10/2019 ultrasound - [facility]. Color flow and real-time ultrasound of the right breast 3-4 o'clock, and axilla regions were performed. Matos scale images of the real-time examination were reviewed. There is a 3.8 cm x 3.4 cm x 1.3 cm irregular complex cyst with a thickened wall in the right breast at 4 o'clock anterior depth 2 cm from the nipple. This irregular complex cyst is of mixed echogenicity with internal echoes. This abnormality is increased in size and thickening has increased. This correlates with mammography findings. Color flow imaging demonstrates that there is vascularity present. There also is a 1 cm x 0.7 cm x 0.7 cm cluster of oval cysts in the right breast at 3 o'clock anterior depth 3 cm from the nipple. This cluster of oval cysts is anechoic with a well-defined boundary. Color flow imaging demonstrates that there is no vascularity present. No significant abnormalities were seen sonographically in the right axilla. IMPRESSION: SUSPICIOUS OF MALIGNANCY 1) The 3.8 cm irregular complex cyst in the right breast at 4 o'clock 2 cm from the nipple demonstrates interval increase in size and wall thickening. This is at a low suspicion for malignancy. -An ultrasound guided biopsy is recommended. 2) The 1 cm x 0.7 cm x 0.7 cm cluster of oval cysts in the right breast at 3 o'clock anterior depth is consistent with a complicated cyst and is probably benign. -A follow-up ultrasound in 6 months is recommended. Exam findings were conveyed to the patient by Dr. Drew Pulido. This exam was interpreted at Station ID: [id number]. Electronically Signed By: Jose Rodas M.D. [facility] [place]/:03/22/2020 16:29:27 letter sent: Biopsy Required Ultrasound BI-RADS: 4a Low suspicion for malignancy
--- NOTE | 2020-03-22 12:30 | DI.US.S_ITS ---
LIMITED ULTRASOUND OF LEFT BREAST: 03/22/2020 CLINICAL: Patient returns today to evaluate a focal asymmetry in the left breast. Comparison is made to exams dated: 03/22/2020 mammogram, 10/03/2019 ultrasound, 10/03/2019 mammogram, 04/10/2019 ultrasound, 04/10/2019 mammogram, and 10/28/2018 [facility]. Color flow and real-time ultrasound of the left breast 4 o'clock, and retroareolar regions were performed. Matos scale images of the real-time examination were reviewed. There is a 0.4 cm prominent duct in the left breast at 4 o'clock anterior depth. The duct appears more collapsed with internal echoes. This abnormality is less prominent and correlates with mammography findings and the previous biopsy. Color flow imaging demonstrates that there is no vascularity present. IMPRESSION: PROBABLY BENIGN Left breast prominent duct at 4:00 with suspected intraductal mass at the site of prior biopsy proven papilloma. The duct appear collapse compared to the prior exam. A follow-up ultrasound in 6 months is recommended to demonstrate long-term stability. Exam findings were conveyed to the patient. This exam was interpreted at Station ID: [id number]. Electronically Signed By: Jose Rodas M.D. [facility] [place]/:03/22/2020 16:36:45 letter sent: Followup Recommended Ultrasound BI-RADS: 3 Probably benign
== END ==
PROVIDERS: PCP Family Medicine; Referring Provider Family Medicine; Visit Provider Family Medicine
DX: R92.8 Other abnormal and inconclusive findings on diagnostic imaging of breast (principal); D24.2 Benign neoplasm of left breast; N60.01 Solitary cyst of right breast
CPT/HCPCS: 76642; 77066; G0279

== ENCOUNTER → 2020-04-02 08:53 | Outpatient (CLI) | payer MEDICARE, OTHER, SELFPAY | PROVIDERS: PCP Family Medicine; Referring Provider Family Medicine; Visit Provider Family Medicine | DX: N60.09 Solitary cyst of unspecified breast; Z98.890 Other specified postprocedural states; Z53.8 Procedure and treatment not carried out for other reasons | CPT/HCPCS: 76642 ==

== ENCOUNTER → 2020-04-09 09:48 | Outpatient (CLI) | payer MEDICARE, OTHER, SELFPAY ==
--- NOTE | 2020-04-09 | PATH_ITS ---
[facility] Accession Number: [id number] . 01 Material submitted: . breast - RIGHT BREAST LESION 4:00 2CMFN . 02 Diagnosis: Right Breast Lesion, 4:00, 2cmfn, Needle Core Biopsies: Predominantly fibrotic parenchyma with few ectatic ducts; please see Comment. Calcification present associated with benign breast tissue. Negative for atypical hyperplasia, in situ, or invasive carcinoma. Numerous deeper levels examined. [facility] 04/12/2020 1420 Local . 02 Comment: Sections are of hypocellular, fibrotic breast parenchyma with a relative paucity of lobular and ductal elements. Few ectatic ducts are seen at the biopsy edge, which may explain the radiographic impression of a complex cyst. The finding of stromal expansion raises a differential including fibroadenomatous change or fibromatosis, if concordant with the clinical and imaging findings. A benign phyllodes tumor is considered less likely. . As part of routine manufacturing quality inspector, Dr. Mitchell has reviewed this case and agrees with the interpreation above. . 02 Electronically signed: . Misael Patino MD, PhD, Pathologist NPI- [id number] . 01 Gross description: . Received in formalin, labeled R breast 4:00, are four pieces of rizzo adipose tissue measuring 1.6 x 0.5 x 0.3 cm to 0.8 x 0.5 x 0.3 cm. All four pieces are entirely submitted in cassette A1. Collection date is listed as 04/09/20 for a total fixation time after processing of approximately 16 hours. ([id number]) /FRR 04/10/2020 0327 Local . 02 Pathologist provided ICD-10: N60.41, N60.01 . 02 CPT . 465099 Performed at: 01 [facility] [address] [place] [address], [place], [place] [id number] MD Gil Zaidi MD Phone: [phone] Performed at: [address] [facility] [id number] [place], [place] [id number] MD Sandra Hughes MD Phone: [phone]
--- NOTE | 2020-04-09 09:50 | DI.US.S_ITS ---
ULTRASOUND GUIDED BIOPSY RIGHT BREAST USING VACUUM DEVICE WITH POST MAMMOGRAPHIC AND ULTRASOUND IMAGIN04/09/2020 CLINICAL: Right breast mass. PATIENT CONSENT: Risks (minor bleeding, infection, vasovagal reaction and repeat procedure), benefits and alternatives were explained to the patient and written informed consent was obtained. Correlation is made to exams dated: 03/22/2020 ultrasound, 03/22/2020 mammogram, 10/03/2019 ultrasound, 10/03/2019 mammogram, 04/10/2019 ultrasound, and 04/10/2019 mammogram - [facility]. An ultrasound guided biopsy using real-time ultrasound was performed for the oval mass located in the right breast at 4 o'clock middle depth. This was described on the previous ultrasound report. The skin was prepped in the usual manner. Local anesthetic was administered to the access site. The abnormality was approached from the lateral aspect. A 13 gauge biopsy needle was placed adjacent to the abnormality under ultrasound guidance. Once the needle was documented to be in the correct location, five specimens were obtained using the Mammotome biopsy system. Post procedure mammographic and ultrasound imaging demonstrates the clip at the targeted area. The specimens were sent to the laboratory for pathological analysis. IMPRESSION: ULTRASOUND GUIDED BIOPSY BENIGN Ultrasound guided biopsy of the mass in the right breast middle depth was successful. Pathology indicates benign fibrotic parenchyma with few ectatic ducts; calcifications present. Stromal expansion raises differential diagnosis for fibroadenomatous change or fibromatosis with benign phyllodes tumor not excluded. Pathology results are concordant with imaging findings. A follow-up right mammogram and bilateral ultrasound in 6 months is recommended to demonstrate stability of other probably benign findings described on evaluation dated 03/22/2020. This exam was interpreted at Station ID: [id number]. Trey Rojas M.D. fx,aty/:04/15/2020 19:36:01
--- NOTE | 2020-04-09 09:50 | DI.MG.S_ITS ---
UNILATERAL RIGHT DIGITAL DIAGNOSTIC MAMMOGRAM POST-NEEDLE BIOPSY: 04/09/2020 CLINICAL: Right breast post clip. Comparison is made to exams dated: 03/22/2020 mammogram, 10/03/2019 mammogram, and 04/10/2019 mammogram - [facility]. The tissue of right breast is extremely dense, which lowers the sensitivity of mammography. There is a biopsy clip in the right breast at the biopsy site. No significant masses, calcifications, or other findings are seen in the breast. IMPRESSION: A biopsy clip in the right breast at the biopsy site. This exam was interpreted at Station ID: [id number]. NOTE: For mammograms, a report in lay terms will be sent to the patient. Approximately 15% of breast malignancies will not be visualized mammographically. In the management of a palpable breast mass, a negative mammogram must not discourage biopsy of a clinically suspicious lesion. Electronically Signed By: Trey Jimenez M.D. fx/:04/09/2020 12:01:24 ACR BI-RADS Category n/a
== END ==
PROVIDERS: PCP Family Medicine; Referring Provider Family Medicine; Visit Provider Family Medicine
DX: N60.41 Mammary duct ectasia of right breast
CPT/HCPCS: 19083; 77065

== ENCOUNTER → 2020-04-10 10:08 | Outpatient (CLI) | payer MEDICARE, OTHER, SELFPAY ==
[2020-04-10] MEDS: COVID-19 VACC #2, MRNA(MOD) 100 MCG/0.5 ML VIAL IM (10:15)
== END ==
PROVIDERS: PCP Family Medicine; Visit Provider Internal Medicine
DX: Z23 Encounter for immunization (principal)
CPT/HCPCS: 0012A; 91301

== ENCOUNTER → 2020-05-17 07:22 | Outpatient (CLI) | payer MEDICARE, OTHER, SELFPAY ==
[2020-05-17 08:26] LABS: Alanine Aminotransferase 23 IU/L (<35); Albumin 4.4 g/dL (3.5-5.0); Albumin Globulin Ratio 1.4 (1.0-2.8); Alkaline Phosphatase 80 U/L (38-126); Aspartate Aminotransferase 28 IU/L (14-36); BUN Creatinine Ratio 24.2 (6-22); Bilirubin Total 0.6 mg/dL (0.2-1.3); Blood Urea Nitrogen 22 mg/dL (7-17); Carbon Dioxide 28 mmol/L (22-32); Chloride 105 mmol/L (98-107); Cholesterol 182 mg/dL (140-199); Estimated Glomerular Filt Rate 59.5 mL/min (>60); Globulin 3.1 g/dL (1.7-4.1); Glucose 106 mg/dL (80-110); HDL Cholesterol 86 mg/dL (40-60); LDL Cholesterol Calculated 84 mg/dL (<100); Potassium 4.6 mmol/L (3.4-5.1); Sodium 139 mmol/L (137-145); Total Protein 7.5 g/dL (6.3-8.2); Triglycerides 58 mg/dL (35-150)
[2020-05-17 09:12] LABS: TSH w/ Reflex to FT4 1.86 uIU/mL (0.47-4.68)
[2020-05-17 09:43] LABS: HEMOLYSIS < 15 (0-50); Vitamin B12 892 pg/mL (239-931)
[2020-05-19 02:10] LABS: Parathyroid Hormone Int 86 pg/mL (15-65)
== END ==
PROVIDERS: PCP Family Medicine; Referring Provider Family Medicine; Visit Provider Family Medicine
DX: D35.1 Benign neoplasm of parathyroid gland (principal); E03.9 Hypothyroidism, unspecified; E53.8 Deficiency of other specified B group vitamins; E78.5 Hyperlipidemia, unspecified; E83.52 Hypercalcemia; I10 Essential (primary) hypertension
CPT/HCPCS: 36415; 80053; 80061; 82607; 83970; 84443

== ENCOUNTER → 2020-06-02 13:25 | Outpatient (CLI) | payer MEDICARE, OTHER, SELFPAY | PROVIDERS: PCP Family Medicine; Visit Provider Physician Assistant | DX: J02.9 Acute pharyngitis, unspecified (principal) | CPT/HCPCS: 87070 ==

== ENCOUNTER → 2020-06-12 10:09 | Outpatient (CLI) | payer MEDICARE, OTHER, SELFPAY ==
[2020-06-12 16:11] LABS: Calcium 24 Hour Urine 24 mg/day (100-300); Calcium Urine Random 1.9 mg/dL; Collection Time Urine 24 Hours; Total Volume Urine 1250 mL
[2020-06-14 18:18] LABS: Creatinine Urine Random 69.1 mg/dL
[2020-06-14 20:40] LABS: Collection Time Urine 24 Hours; Creatinine 24 Hour Urine 864 mg/day (800-1800); Total Volume Urine 1250 mL
== END ==
PROVIDERS: PCP Family Medicine; Visit Provider Family Medicine
DX: E21.3 Hyperparathyroidism, unspecified (principal)
CPT/HCPCS: 82340; 82570

== ENCOUNTER → 2020-09-18 08:31 | Outpatient (CLI) | payer MEDICARE, OTHER, SELFPAY ==
--- NOTE | 2020-09-18 08:33 | DI.MG.S_ITS ---
UNILATERAL RIGHT DIGITAL DIAGNOSTIC MAMMOGRAM 3D/2D SHORT-TERM FOLLOW-UP: 09/18/2020 CLINICAL: Short term follow up from biopsy. Comparison is made to exams dated: 04/09/2020 mammogram, 03/22/2020 mammogram, 10/03/2019 mammogram, and 04/10/2019 mammogram - [facility]. The tissue of right breast is extremely dense, which lowers the sensitivity of mammography. There is a 9 mm oval focal asymmetry with an obscured margin in the right breast at 4 o'clock anterior depth. This is not significantly changed and correlates with ultrasound findings. There is a biopsy clip in close vicinity with the focal asymmetry. No other significant masses or calcifications are seen in the breast. IMPRESSION: INCOMPLETE: NEEDS ADDITIONAL IMAGING EVALUATION The 9 mm oval focal asymmetry in the right breast is indeterminate. An ultrasound is recommended for further evaluation and is scheduled to immediately follow this examination. This exam was interpreted at Station ID: [id number]. NOTE: For mammograms, a report in lay terms will be sent to the patient. Approximately 15% of breast malignancies will not be visualized mammographically. In the management of a palpable breast mass, a negative mammogram must not discourage biopsy of a clinically suspicious lesion. Electronically Signed By: Abebe Rojas M.D. aty/:09/18/2020 09:03:23 ACR BI-RADS Category 0: Incomplete [id number]
--- NOTE | 2020-09-18 08:33 | DI.US.S_ITS ---
ULTRASOUND OF RIGHT BREAST: 09/18/2020 CLINICAL: Patient returns for a 6 month follow up of the right breast. Post biopsy. Comparison is made to exams dated: 09/18/2020 mammogram, 04/09/2020 mammogram, 04/09/2020 ultrasound biopsy, 03/22/2020 ultrasound, 03/22/2020 mammogram, and 10/03/2019 [facility]. Color flow and real-time ultrasound of the right breast were performed. Matos scale images of the real-time examination were reviewed. There is a 1 cm x 0.7 cm x 0.7 cm cluster of oval cysts in the right breast at 3 o'clock anterior depth 3 cm from the nipple. This cluster of oval cysts is anechoic with a well-defined boundary. These abnormalities are not significantly changed. Color flow imaging demonstrates that there is no vascularity present. There also is a biopsy proven benign 3.8 cm x 3.4 cm x 1.3 cm irregular complex cyst with a thickened wall in the right breast at 4 o'clock anterior depth 2 cm from the nipple. This irregular complex cyst is of mixed echogenicity with internal echoes. This abnormality is less prominent and correlates with mammography findings and the previous biopsy. Color flow imaging demonstrates that there is vascularity present. IMPRESSION: PROBABLY BENIGN The 1 cm x 0.7 cm x 0.7 cm cluster of oval cysts in the right breast at 3 o'clock anterior depth is consistent with a complicated cyst and is probably benign. A follow-up mammogram and ultrasound in 6 months is recommended. The 3.8 cm x 3.4 cm x 1.3 cm irregular complex cyst in the right breast at 4 o'clock anterior depth is benign; however, pathology indicated possible phyllodes tumor or fibromatosis. A follow-up mammogram and an ultrasound in 6 months is recommended to demonstrate continued stability. Findings and recommendations were conveyed to the patient during today's evaluation. This exam was interpreted at Station ID: [id number]. Electronically Signed By: Abebe Rojas M.D. aty/:09/18/2020 16:49:25 letter sent: Followup Recommended Ultrasound BI-RADS: 3 Probably benign
--- NOTE | 2020-09-18 08:33 | DI.US.S_ITS ---
ULTRASOUND OF LEFT BREAST: 09/18/2020 CLINICAL: Patient returns for a 6 month follow up of the left breast. Comparison is made to exams dated: 03/22/2020 ultrasound, 03/22/2020 mammogram, 10/03/2019 ultrasound, 10/03/2019 mammogram, 04/10/2019 ultrasound, and 04/10/2019 mammogram - [facility]. Color flow and real-time ultrasound of the left breast were performed. Matos scale images of the real-time examination were reviewed. There is a 0.4 cm dilated duct in the left breast at 4 o'clock anterior depth. This dilated duct displays internal echoes and intraductal mass that is a biopsy proven typical benign papilloma. This abnormality is less prominent and correlates with mammography findings and the previous biopsy. There is an associated biopsy clip. Color flow imaging demonstrates that there is no vascularity present. IMPRESSION: BENIGN There is no sonographic evidence of malignancy. The 0.4 cm dilated duct in the left breast with stable intraducal mass is consistent with a biopsy proven papilloma and is benign. It has demonstrated two years of stability since the biopsy. A follow-up screening left mammogram in 6 months is recommended. This will be performed at same time as follow up right mammogram and right ultrasound for other findings described in separate report of the right breast from same day. Findings and recommendations were conveyed to the patient during today's evaluation. This exam was interpreted at Station ID: [id number]. Electronically Signed By: Abebe Rojas M.D. aty/:09/18/2020 16:54:31 Ultrasound BI-RADS: 2 Benign
== END ==
PROVIDERS: PCP Family Medicine; Referring Provider Family Medicine; Visit Provider Family Medicine
DX: R92.8 Other abnormal and inconclusive findings on diagnostic imaging of breast (principal); D24.2 Benign neoplasm of left breast; N60.42 Mammary duct ectasia of left breast; N60.01 Solitary cyst of right breast
CPT/HCPCS: 76642; 77065; G0279

== ENCOUNTER → 2020-11-18 11:05 | Outpatient (CLI) | payer MEDICARE, OTHER, SELFPAY ==
[2020-11-18 13:01] LABS: Blood Urea Nitrogen 26 mg/dL (7-17); Calcium 10.6 mg/dL (8.4-10.2); Carbon Dioxide 28 mmol/L (22-32); Chloride 103 mmol/L (98-107); Glucose 101 mg/dL (80-110); Potassium 5.1 mmol/L (3.4-5.1); Sodium 138 mmol/L (137-145)
[2020-11-18 13:02] LABS: HEMOLYSIS 71 (0-50)
[2020-11-18 13:32] LABS: TSH w/ Reflex to FT4 2.04 uIU/mL (0.47-4.68)
[2020-11-19 13:36] LABS: Calcium 10.4 mg/dL (8.7-10.3); Parathyroid Hormone, Intact 55 pg/mL (15-65)
== END ==
PROVIDERS: PCP Family Medicine; Referring Provider Family Medicine; Visit Provider Family Medicine
DX: D35.1 Benign neoplasm of parathyroid gland (principal); E03.9 Hypothyroidism, unspecified; E83.52 Hypercalcemia; G31.84 Mild cognitive impairment of uncertain or unknown etiology
CPT/HCPCS: 36415; 80048; 82310; 83970; 84443

== ENCOUNTER → 2021-04-09 08:43 | Outpatient (CLI) | payer MEDICARE, OTHER, SELFPAY ==
--- NOTE | 2021-04-09 08:44 | DI.MG.S_ITS ---
BILATERAL DIGITAL DIAGNOSTIC MAMMOGRAM 3D/2D SHORT-TERM FOLLOW-UP: 04/09/2021 CLINICAL: Short term follow up of the right breast, due for bilateral imaging. Comparison is made to exams dated: 09/18/2020 mammogram, 04/09/2020 mammogram, and 03/22/2020 mammogram - [facility]. The tissue of both breasts is extremely dense, which lowers the sensitivity of mammography. There is an unchanged 8 mm oval focal asymmetry with an obscured margin in the right breast at 4 o'clock anterior depth. There is a biopsy clip associated with the focal asymmetry. No other significant masses, calcifications, or other findings are seen in either breast. IMPRESSION: INCOMPLETE: NEEDS ADDITIONAL IMAGING EVALUATION The 8 mm oval focal asymmetry in the right breast is indeterminate. An ultrasound was previously recommended and has been scheduled to immediately follow this exam. This exam was interpreted at Station ID: [id number]. NOTE: For mammograms, a report in lay terms will be sent to the patient. Approximately 15% of breast malignancies will not be visualized mammographically. In the management of a palpable breast mass, a negative mammogram must not discourage biopsy of a clinically suspicious lesion. Electronically Signed By: Jerrell Méndez M.D. jr/:04/09/2021 09:45:22 ACR BI-RADS Category 0: Incomplete 3340F
--- NOTE | 2021-04-09 08:44 | DI.US.S_ITS ---
LIMITED ULTRASOUND OF RIGHT BREAST: 04/09/2021 CLINICAL: 6 month follow-up biopsy. Comparison is made to exams dated: 04/09/2021 mammogram, 09/18/2020 ultrasound, 09/18/2020 mammogram, 04/09/2020 mammogram, and 04/09/2020 ultrasound biopsy - [facility]. Color flow and real-time ultrasound of the right breast 3-4 o'clock region were performed. Matos scale images of the real-time examination were reviewed. There is a stable benign 3.8 cm x 3.4 cm x 1.3 cm irregular complex cyst with a thickened wall in the right breast at 4 o'clock anterior depth 2 cm from the nipple. This irregular complex cyst is of mixed echogenicity with internal echoes. This correlates with mammography findings and the previous biopsy. Color flow imaging demonstrates that there is vascularity present. There also is a benign 1 cm x 0.7 cm x 0.7 cm cluster of oval cysts in the right breast at 3 o'clock anterior depth 3 cm from the nipple. This cluster of oval cysts is anechoic with a well-defined boundary. These abnormalities are not significantly changed. Color flow imaging demonstrates that there is no vascularity present. IMPRESSION: BENIGN There is no sonographic evidence of malignancy. The stable 3.8 cm x 3.4 cm x 1.3 cm irregular complex cyst in the right breast at 4 o'clock anterior depth is benign. The 1 cm x 0.7 cm x 0.7 cm cluster of oval cysts in the right breast at 3 o'clock anterior depth is consistent with a complicated cyst and is benign. Return to annual mammogram screening schedule is recommended. This exam was interpreted at Station ID: [id number]. Electronically Signed By: Jerrell Méndez M.D., jr/ken:04/09/2021 10:49:05 letter sent: Normal Exam Ultrasound BI-RADS: 2 Benign
== END ==
PROVIDERS: PCP Family Medicine; Referring Provider Family Medicine; Visit Provider Family Medicine
DX: N60.01 Solitary cyst of right breast (principal); D24.2 Benign neoplasm of left breast; R92.8 Other abnormal and inconclusive findings on diagnostic imaging of breast; N60.02 Solitary cyst of left breast
CPT/HCPCS: 76642; 77066; G0279

== ENCOUNTER → 2021-12-22 11:57 | Outpatient (CLI) | payer MEDICARE, OTHER, SELFPAY ==
--- NOTE | 2021-12-22 11:59 | DI.RAD.S_ITS ---
PROCEDURE: XR KNEE LT 3V INDICATIONS: Left knee pain TECHNIQUE: 3 views of the knee were acquired. COMPARISON: [facility], , KNEE 1-2 VIEWS RIGHT, 12/26/2012, 13:53. FINDINGS: Bones: No fractures or dislocations. Moderate tricompartmental osteoarthritis is seen with joint space narrowing, subchondral sclerosis and marginal osteophyte formation. No patellar subluxation. No suspicious bony lesions. Soft tissues: There is small to moderate joint effusion. Chondrocalcinosis in medial and lateral femoral tibial compartments are seen. 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 Dictated by: Nicho Dawn M.D. on 12/22/2021 at 12:43 Approved by: Nicho Dawn M.D. on 12/22/2021 at 12:44
== END ==
PROVIDERS: PCP Family Medicine; Referring Provider Registered Nurse; Visit Provider Registered Nurse
DX: M17.12 Unilateral primary osteoarthritis, left knee (principal); M11.262 Other chondrocalcinosis, left knee; M25.462 Effusion, left knee; M25.562 Pain in left knee
CPT/HCPCS: 73562

== ENCOUNTER 2022-03-25 14:33 | Emergency (ER) | payer MEDICARE, OTHER, SELFPAY ==
[2022-03-25 14:35] VITALS: BP 238/107; PULSE 95; RESP 18; TEMP 36.8; O2SAT 99; BMI 28.2
[2022-03-25 14:40] VITALS: BP 199/89; PULSE 92; RESP 16; O2SAT 99
--- NOTE | 2022-03-25 14:43 | DI.CT.S_ITS ---
PROCEDURE: CT HEAD/BRAIN WO CON INDICATIONS: sudden severe headache TECHNIQUE: Noncontrast 4.5 mm thick angled axial sections acquired from the foramen magnum to the vertex, with coronal and sagittal reformats. For radiation dose reduction, the following was used: automated exposure control, adjustment of mA and/or kV according to patient size. COMPARISON: None. FINDINGS: Image quality: Excellent. CSF spaces: Basal cisterns are patent. No extra-axial fluid collections. The ventricles are symmetric in size and shape. Brain: No intracranial bleeds or masses. There is moderate cerebral volume loss for age, with resultant ventricular and sulcal prominence. There are mild periventricular and deep white matter chronic small vessel ischemic changes. There is intracranial internal carotid artery atherosclerosis. Skull and face: Calvarium and visualized facial bones appear intact, without suspicious lesions. Sinuses: Visualized sinuses and mastoids are clear. IMPRESSION: 1. No acute intracranial abnormalities. 2. Cerebral volume loss and chronic microvascular ischemic changes. Dictated by: Trey Jimenez M.D. on 03/25/2022 at 14:55 Approved by: Trey Jimenez M.D. on 03/25/2022 at 14:56
[2022-03-25 16:16] VITALS: PULSE 86; RESP 18; O2SAT 98
[2022-03-25 16:23] VITALS: BP 188/88
[2022-03-25 17:18] VITALS: BP 219/99; PULSE 93; RESP 18; O2SAT 98
[2022-03-25] MEDS: IBUPROFEN 400 MG TABLET 800 MG PO (17:25)
--- NOTE | 2022-03-25 17:49 | ED_ITS ---
HPI - Headache <Caroline Easton PA-C - Last Filed: 03/30/22 14:12> General Chief Complaint: Headache Stated Complaint: Severe sudden onset headache Time Seen by Provider: 03/25/22 16:21 Mode of arrival: Ambulatory History of Present Illness HPI Narrative: 82-year-old female with past medical history hyperlipidemia, hypertension, hypothyroidism, dementia presents to the ED with 1 day of headache. Patient denies fever, chills, neck stiffness, neck pain, chest pain, shortness of breath, visual disturbances, photophobia, phonophobia, abdominal pain, dysuria, numbness, tingling, weakness, lightheadedness, dizziness, syncope. Patient states that she woke up from a nap, after which the headache started. Patient states that she took some Tylenol for it. Patient states that the headache has completely resolved in the ED. Related Data Previous Rx's Medication Instructions Recorded lidocaine 5 % topical patch See Rx Instructions transdermal 05/31/19 (Lidoderm) Q24H #30 patches estradiol 0.01% (0.1 mg/gram) 1 g vaginal .COMPLEX #60 grams 05/23/20 vaginal cream [place] 25G 1 in #12 ea 05/27/20 Syringes 3ml #12 ea 05/27/20 lisinopril 40 mg tablet 40 mg PO DAILY #90 tabs 09/22/21 celecoxib 200 mg capsule See Rx Instructions .Route 10/09/21 .COMPLEX #90 caps cyanocobalamin (vitamin B-12) See Rx Instructions .Route 01/13/22 1,000 mcg/mL injection solution .COMPLEX #12 mL levothyroxine 50 mcg tablet 50 mcg PO DAILY #90 tabs 02/10/22 atorvastatin 10 mg tablet 10 mg PO BEDTIME #90 tabs 03/09/22 metoprolol succinate 25 mg 25 mg PO DAILY #60 tabs 03/26/22 tablet,extended release 24 hr Allergies Allergy/AdvReac Type Severity Reaction Status Date / Time Penicillins [PENICILLINS] Allergy Mild RASH Verified 03/26/22 11:23 Review of Systems <Caroline Easton PA-C - Last Filed: 03/30/22 14:12> Review of Systems ROS Unobtainable: All systems reviewed & are unremarkable except as noted in HPI and below Constitutional Constitutional: Denies chills, Denies fatigue, Denies fever(s), Denies frequent falls, Reports headache(s), Denies lethargy and Denies weakness Eyes Eyes: Denies change in vision, Denies eye discharge, Denies irritation and Denies loss of vision ENT Ears, Nose, Mouth, and Throat: Denies change in voice, Denies dizziness, Reports headache(s), Denies neck pain, Denies sore throat and Denies throat swelling Cardiovascular Cardiovascular: Denies chest pain, Denies irregular heart rhythm, Denies lightheadedness, Denies palpitations, Denies dyspnea, Denies dyspnea on exertion and Denies orthopnea Respiratory Respiratory: Denies cough, Denies dyspnea, Denies dyspnea on exertion and Denies wheezing Gastrointestinal Gastrointestinal: Denies abdominal pain, Denies change in bowel habits, Denies diarrhea, Denies nausea and Denies vomiting Genitourinary Genitourinary: Denies hematuria, Denies flank pain, Denies urinary incontinence and Denies urinary urgency Musculoskeletal Musculoskeletal: Denies back pain, Denies muscle weakness, Denies neck pain, Denies numbness and Denies tingling Integumentary/Breasts Skin/Breast: Denies pruritus, Denies erythema, Denies rash and Denies wounds Neurologic Neurologic: Denies behavioral changes, Denies confusion, Denies dizziness, Denies frequent falls, Reports headache(s), Denies loss of vision, Denies numbness, Denies tingling and Denies weakness Psychiatric Psychiatric: Denies anxiety, Denies behavioral changes, Denies confusion, Denies depression, Denies homicidal ideation and Denies suicidal ideation Endocrine Endocrine: Denies fatigue, Denies flushing and Denies palpitations Hematologic/Lymphatic Hematologic/Lymphatic: Denies easy bruising Allergic/Immunologic Allergic/Immunologic: Denies urticaria, Denies throat swelling and Denies wheez ing Patient History <Caroline Easton PA-C - Last Filed: 03/30/22 14:12> Medical History Achilles tendon tear (2012) Actinic keratosis (2000) BCC (basal cell carcinoma of skin) (2006) Burning sensation of foot Cardiac arrhythmia (2013) Carpal tunnel syndrome (2004) Cataract (2011) Cataract (2012) Chicken pox (1949) Dementia (02/2022) Diverticular disease (2015) Endometriosis (1990) GERD (gastroesophageal reflux disease) Hearing loss (~194) Herniated lumbar intervertebral disc (09/2013) History of heavy periods (1989) Hypercalcemia Hyperparathyroidism Hypertension (2000) Hypothyroidism (2011) 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 Measles (1947) Mild cognitive impairment Neuropathy of both feet Osteoarthritis (2000) Osteopenia Osteoporosis Otosclerosis (~06/23/17) Peripheral vascular disease (2001) Skin cancer (2001) Thrombocytopenia (~05/2010) Vitamin B12 deficiency Surgical History Anesthesia History of carpal tunnel repair (2004) History of colonoscopy (2015) History of ear surgery (1998) History of endoscopy (2010) Hx of total knee arthroplasty (2012) Parathyroid adenoma (~2013) Status post hysterectomy with oophorectomy (1990) Status post parathyroidectomy (2013) Family History Father Heart disease Hypertension Heart failure Diabetes mellitus Grandmother Dementia CVA (cerebral vascular accident) Mother Hypothyroid Dementia Breast cancer Brain bleed Grandfather CVA (cerebral vascular accident) Grandfather No problems noted. Grandmother No problems noted. Sister No problems noted. Social History Smoking Status: Former smoker Smoking Status: Former smoker alcohol intake frequency: 0-2 drinks per day Alcohol type: wine Substance Use Type: does not use Exam <Caroline Easton PA-C - Last Filed: 03/30/22 14:12> Narrative Exam Narrative: Const General:?cooperative, healthy appearing and comfortable [facility] Head:?normal to inspection Ears:?hearing grossly normal bilaterally Nose:?external nose normal Face and sinus:?normal facial exam and sinuses nontender Mouth:?oral mucosae normal Throat:?posterior oropharynx normal Eyes General:?appearance normal, both eyes and all related structures Neck Neck:?normal visual inspection and no lymphadenopathy noted Resp Effort & Inspection:?normal respiratory effort Auscultation:?clear to auscultation bilaterally Cardio Rate:?regular rate Rhythm:?regular rhythm Neuro General:?patient alert, patient awake and patient oriented x3; PERRLA; CN 1 through 12 intact bilaterally; negative [id number]; negative pronator drift; gait normal Initial Vital Signs Initial Vital Signs: Vital Signs Temperature 98.2 F 03/25/22 14:35 Pulse Rate 95 H 03/25/22 14:35 Respiratory Rate 18 03/25/22 14:35 Blood Pressure 238/107 H 03/25/22 14:35 Pulse Oximetry 99 03/25/22 14:35 Oxygen Delivery Method Room Air 03/25/22 14:35 <Misael Ledezma MD - Last Filed: 04/16/22 07:24> Initial Vital Signs Initial Vital Signs: Vital Signs Temperature 98.2 F 03/25/22 14:35 Pulse Rate 95 H 03/25/22 14:35 Respiratory Rate 18 03/25/22 14:35 Blood Pressure 238/107 H 03/25/22 14:35 Pulse Oximetry 99 03/25/22 14:35 Oxygen Delivery Method Room Air 03/25/22 14:35 Course <Caroline Easton PA-C - Last Filed: 03/30/22 14:12> Orders Ordered: Discontinued Medications Ibuprofen (Ibuprofen 400 Mg Tablet) 800 mg PO NOW ONE Stop: 03/25/22 17:22 Last Admin: 03/25/22 17:25 Dose: 800 mg Documented By: EDITH Vital Signs Vital signs: Vital Signs - 8 hr 03/25/22 14:35 03/25/22 14:40 03/25/22 16:16 Temperature 98.2 F Pulse Rate 95 H 92 H 86 Respiratory Rate 18 16 18 Blood Pressure 238/107 H 199/89 H Pulse Oximetry 99 99 98 Oxygen Delivery Method Room Air Room Air 03/25/22 16:23 03/25/22 17:18 Temperature Pulse Rate 93 H Respiratory Rate 18 Blood Pressure 188/88 H 219/99 H Pulse Oximetry 98 Oxygen Delivery Method Room Air <Misael Ledezma MD - Last Filed: 04/16/22 07:24> Orders Ordered: Discontinued Medications Ibuprofen (Ibuprofen 400 Mg Tablet) 800 mg PO NOW ONE Stop: 03/25/22 17:22 Last Admin: 03/25/22 17:25 Dose: 800 mg Documented By: EDITH Vital Signs Vital signs: Vital Signs - 8 hr 03/25/22 14:35 03/25/22 14:40 03/25/22 16:16 Temperature 98.2 F Pulse Rate 95 H 92 H 86 Respiratory Rate 18 16 18 Blood Pressure 238/107 H 199/89 H Pulse Oximetry 99 99 98 Oxygen Delivery Method Room Air Room Air 03/25/22 16:23 03/25/22 17:18 Temperature Pulse Rate 93 H Respiratory Rate 18 Blood Pressure 188/88 H 219/99 H Pulse Oximetry 98 Oxygen Delivery Method Room Air MDM - Headache <Caroline Easton PA-C - Last Filed: 03/30/22 14:12> [facility] Narrative Medical decision making narrative: 82-year-old female with past medical history hyperlipidemia, hypertension, hypothyroidism, dementia presents to the ED with 1 day of headache. Concern for primary headache versus CVA versus intracranial hemorrhage versus other. Will obtain CT head, reassess. CT head without acute findings. Patient's symptoms resolved spontaneously in the ED. physical exam was reassuring for no focal neural deficits. Patient's symptoms likely due to a primary headache that was likely controlled with the Tylenol she took at home. ED return precautions were discussed with patient. Patient verbalized understanding. At the time of discharge, patient endorsed a recurrence of her headache, following which she was given some ibuprofen. ED return precautions were again reiterated. Patient verbalized understanding. Medical records reviewed: Yes <Misael Ledezma MD - Last Filed: 04/16/22 07:24> Medical Records Medical records narrative: I was immediately available in the department for consultation. Documentation has been reviewed. I agree with assessment and plan. Discharge Plan Departure Patient Disposition: Home Clinical Impression: Headache Instructions: DI for Headache Activity Restrictions/Additional Instructions: You were evaluated in the ED today for a headache. Your CT head was normal. In the ED, your headache resolved, and it could likely have been the Tylenol you took prior to arrival. You may continue to take Tylenol or ibuprofen if your headache recurs. If your symptoms worsen, you experience persistent vomiting, visual disturbances, please return to the ED for further evaluation. Please follow-up with your PCP as soon as possible to evaluate your blood pressure and adjust medications accordingly. Prescriptions: No Action lidocaine [Lidoderm] 5 % adhesive patch,medicated See Rx Instructions transdermal Q24H Qty: 30 2RF Rx Instructions: Apply 1 patch transdermal every 24 hours; estradiol 0.01 % (0.1 mg/gram) cream 1 g VAG .COMPLEX Qty: 60 5RF Rx Instructions: Use nightly (DME) [place] 25G 1 in Qty: 12 0RF Rx Instructions: Use to inject B12 monthly (DME) Syringes 3ml Qty: 12 0RF Rx Instructions: Use to inject B12 monthly lisinopril 40 mg tablet 40 mg PO DAILY Qty: 90 3RF celecoxib 200 mg capsule See Rx Instructions .ROUTE .COMPLEX Qty: 90 3RF Dose Instruction: TAKE 1 CAPSULE DAILY Rx Instructions: TAKE 1 CAPSULE DAILY cyanocobalamin (vitamin B-12) 1,000 mcg/mL solution See Rx Instructions .ROUTE .COMPLEX Qty: 12 3RF Dose Instruction: INJECT 1000 MCG INTO THE MUSCLE EVERY MONTH Rx Instructions: INJECT 1000 MCG INTO THE MUSCLE EVERY MONTH levothyroxine 50 mcg tablet 50 mcg PO DAILY Qty: 90 1RF atorvastatin 10 mg tablet 10 mg PO BEDTIME Qty: 90 0RF metoprolol succinate 25 mg tablet extended release 24 hr 25 mg PO DAILY Qty: 60 0RF Referrals: Eleni Watts DO [Primary Care Provider] - Stand Alone Forms: Patient Portal/API
== END 2022-03-25 17:27 | disposition home or self-care (01) ==
PROVIDERS: Emergency Provider Student in an Organized Health Care Education/Training Program; PCP Family Medicine
DX: R51.9 Headache, unspecified (principal)
CPT/HCPCS: 70450; 99284

== ENCOUNTER → 2022-04-23 11:21 | Outpatient (CLI) | payer MEDICARE, OTHER, SELFPAY ==
--- NOTE | 2022-04-23 11:24 | DI.MG.S_ITS ---
BILATERAL DIGITAL SCREENING MAMMOGRAM 3D/2D WITH CAD: 04/23/2022 CLINICAL: Routine screening. Family history of breast cancer. Comparison is made to exams dated: 04/09/2021 mammogram, 09/18/2020 mammogram, 03/22/2020 mammogram, and 10/03/2019 mammogram - . Both breasts are extremely dense, which lowers the sensitivity of mammography (category d />75% glandular tissue). Current study was also evaluated with a Computer Aided Detection (CAD) system. There are benign calcifications in both breasts. There also are benign vascular calcifications in both breasts. Additionally, there are biopsy clips in the right breast. Additionally, there also is a biopsy clip in the left breast. No significant masses, calcifications, or other findings are seen in either breast. There has been no significant interval change. IMPRESSION: BENIGN There is no mammographic evidence of malignancy. A 1 year screening mammogram is recommended. Based on the Tyrer Cuzick model (a risk assessment model) the patient's lifetime risk is 3.2% and her 10 year risk is 0.0%. According to the ACR, ACS, and NCCN guidelines, an annual breast MRI exam along with mammogram is recommended if the patient's lifetime risk is 20% or greater. This exam was interpreted at Station ID: [id number]. NOTE: For mammograms, a report in lay terms will be sent to the patient. Approximately 15% of breast malignancies will not be visualized mammographically. In the management of a palpable breast mass, a negative mammogram must not discourage biopsy of a clinically suspicious lesion. Electronically Signed By: Jose brush/ken:04/23/2022 13:01:58 letter sent: Normal Exam ACR BI-RADS Category 2: Benign Finding(s) 3342F
== END ==
PROVIDERS: PCP Family Medicine; Referring Provider Family Medicine; Visit Provider Family Medicine
DX: Z12.31 Encounter for screening mammogram for malignant neoplasm of breast (principal); Z80.3 Family history of malignant neoplasm of breast
CPT/HCPCS: 77063; 77067

== ENCOUNTER → 2022-04-24 07:20 | Outpatient (CLI) | payer MEDICARE, OTHER, SELFPAY ==
[2022-04-24 09:57] LABS: Creatinine Urine Random 117.3 mg/dL
[2022-04-24 10:01] LABS: Microalbumi Creatinin Ratio Ur 15.3 ug/mg CR (<30); Microalbumin Urine Random 1.8 mg/dL (0-1.6)
[2022-04-24 10:02] LABS: Alanine Aminotransferase 23 IU/L (<35); Albumin 4.5 g/dL (3.5-5.0); Albumin Globulin Ratio 1.4 (1.0-2.8); Alkaline Phosphatase 89 U/L (38-126); Aspartate Aminotransferase 25 IU/L (14-36); BUN Creatinine Ratio 27.7 (6-22); Bilirubin Total 0.7 mg/dL (0.2-1.3); Blood Urea Nitrogen 26 mg/dL (7-17); Calcium 9.9 mg/dL (8.4-10.2); Carbon Dioxide 28 mmol/L (22-32); Chloride 105 mmol/L (98-107); Cholesterol 161 mg/dL (140-199); Estimated Glomerular Filt Rate > 60 mL/min (>60); Globulin 3.3 g/dL (1.7-4.1); Glucose 97 mg/dL (80-110); HDL Cholesterol 75 mg/dL (40-60); HEMOLYSIS < 15 (0-50); LDL Cholesterol Calculated 75 mg/dL (<100); Potassium 4.6 mmol/L (3.4-5.1); Sodium 140 mmol/L (137-145); Total Protein 7.8 g/dL (6.3-8.2); Triglycerides 57 mg/dL (35-150)
[2022-04-24 11:02] LABS: Thyroid Stimulating Hormone 1.37 uIU/mL (0.47-4.68)
[2022-04-28 13:36] LABS: Calcium 10.2 mg/dL (8.7-10.3); Parathyroid Hormone, Intact 68 pg/mL (15-65)
== END ==
PROVIDERS: PCP Family Medicine; Referring Provider Family Medicine; Visit Provider Family Medicine
DX: I10 Essential (primary) hypertension (principal); E21.3 Hyperparathyroidism, unspecified; D69.6 Thrombocytopenia, unspecified; E53.8 Deficiency of other specified B group vitamins; E78.5 Hyperlipidemia, unspecified; E83.52 Hypercalcemia
CPT/HCPCS: 36415; 80053; 80061; 82043; 82306; 82310; 82570; 83970; 84443

== ENCOUNTER → 2022-08-09 10:25 | Outpatient (CLI) | payer MEDICARE, OTHER, SELFPAY | PROVIDERS: PCP Family Medicine; Visit Provider Nurse Practitioner Family | DX: R10.9 Unspecified abdominal pain (principal); R30.0 Dysuria | CPT/HCPCS: 87077; 87086; 87186; 87210 ==

== ENCOUNTER → 2022-08-21 07:09 | Outpatient (CLI) | payer MEDICARE, OTHER, SELFPAY | PROVIDERS: PCP Family Medicine; Visit Provider Nurse Practitioner Family | DX: N39.0 Urinary tract infection, site not specified (principal) | CPT/HCPCS: 87086 ==

== ENCOUNTER → 2022-08-26 15:36 | Outpatient (CLI) | payer MEDICARE, OTHER, SELFPAY ==
[2022-08-26 19:20] LABS: Appearance Urine UA CLEAR; Bilirubin Urine UA NEGATIVE (NEGATIVE); Color Urine UA YELLOW; Glucose Urine UA NEGATIVE (Negative); Ketones Urine UA NEGATIVE (NEGATIVE); Leukocyte Esterase Urine UA TRACE (NEGATIVE); Nitrite Urine UA NEGATIVE (Negative); Occult Blood Urine UA NEGATIVE (Negative); Protein Urine UA NEGATIVE (Negative); Specific Gravity Urine UA <=1.005 (1.000-1.035); Urobilinogen Urine UA 0.2 E.U./dL (0.2)
[2022-08-26 19:34] LABS: Bacteria Urine None Seen; Culture Indicated Urine Cult Not Indicated; RBC Urine 0-1/HPF (0-5/HPF); Squamous Epithelial Cell Urine 5-10 /HPF (0-5/HPF); WBC Urine 0-1/HPF (0-5/HPF)
== END ==
PROVIDERS: PCP Family Medicine; Visit Provider Family Medicine
DX: N30.00 Acute cystitis without hematuria (principal)
CPT/HCPCS: 81001; 87086

== ENCOUNTER → 2022-09-01 08:15 | Outpatient (CLI) | payer MEDICARE, OTHER, SELFPAY ==
[2022-09-01 09:42] LABS: Appearance Urine UA CLEAR; Bilirubin Urine UA NEGATIVE (NEGATIVE); Color Urine UA YELLOW; Glucose Urine UA NEGATIVE (Negative); Ketones Urine UA NEGATIVE (NEGATIVE); Leukocyte Esterase Urine UA TRACE (NEGATIVE); Nitrite Urine UA NEGATIVE (Negative); Occult Blood Urine UA NEGATIVE (Negative); Protein Urine UA NEGATIVE (Negative); Specific Gravity Urine UA <=1.005 (1.000-1.035); Urobilinogen Urine UA 0.2 E.U./dL (0.2)
[2022-09-01 10:31] LABS: Bacteria Urine Occasional (0-1); Culture Indicated Urine Specimen Cultured; RBC Urine 0-1/HPF (0-5/HPF); Squamous Epithelial Cell Urine 1-5 /HPF (0-5/HPF); WBC Urine 1-5/HPF (0-5/HPF)
== END ==
PROVIDERS: PCP Family Medicine; Referring Provider Family Medicine; Visit Provider Family Medicine
DX: R30.0 Dysuria (principal)
CPT/HCPCS: 81001; 87077; 87086; 87186

== ENCOUNTER → 2023-04-26 09:46 | Outpatient (CLI) | payer MEDICARE, OTHER, SELFPAY ==
--- NOTE | 2023-04-26 | DI.MG.S_ITS ---
BILATERAL DIGITAL SCREENING MAMMOGRAM 3D/2D WITH CAD: 04/26/2023 CLINICAL: Routine screening. Family history of breast cancer. Comparison is made to exams dated: 04/23/2022 mammogram, 04/09/2021 mammogram, 09/18/2020 mammogram, 04/09/2020 mammogram, and 03/22/2020 mammogram - [facility]. Both breasts are heterogeneously dense, which may obscure small masses (category c / 51-75% glandular tissue). Current study was also evaluated with a Computer Aided Detection (CAD) system. There is an asymmetry in the left breast posterior depth superior region seen on the mediolateral oblique view only. This is increased in size. There also is a focal asymmetry in the left breast at 3 o'clock middle depth. Additionally, there is a focal asymmetry in the left breast at 9 o'clock middle depth. No other significant masses, calcifications, or other findings are seen in either breast. IMPRESSION: INCOMPLETE: NEEDS ADDITIONAL IMAGING EVALUATION The asymmetry in the left breast posterior depth superior region seen on the mediolateral oblique view only is indeterminate. Exaggerated CC views as well as additional views with possible ultrasound are recommended. The focal asymmetry in the left breast at 3 o'clock middle depth is indeterminate. Additional views with possible ultrasound are recommended. The focal asymmetry in the left breast at 9 o'clock middle depth is indeterminate. Additional views with possible ultrasound are recommended. Based on the Tyrer Cuzick model (a risk assessment model) the patient's lifetime risk is 1.4% and her 10 year risk is 0.0%. According to the ACR, ACS, and NCCN guidelines, an annual breast MRI exam along with mammogram is recommended if the patient's lifetime risk is 20% or greater. This exam was interpreted at Station ID: [id number]. NOTE: For mammograms, a report in lay terms will be sent to the patient. Approximately 15% of breast malignancies will not be visualized mammographically. In the management of a palpable breast mass, a negative mammogram must not discourage biopsy of a clinically suspicious lesion. Electronically Signed By: Rachel hobson/:04/26/2023 12:14:25 letter sent: Followup Recommended ACR BI-RADS Category 0: Incomplete [id number]
== END ==
LOC: MAMMO 09:47
PROVIDERS: PCP Family Medicine; Referring Provider Family Medicine; Visit Provider Family Medicine
DX: Z12.31 Encounter for screening mammogram for malignant neoplasm of breast (principal); Z80.3 Family history of malignant neoplasm of breast; R92.333 Mammographic heterogeneous density, bilateral breasts
CPT/HCPCS: 77063; 77067

== ENCOUNTER → 2023-05-18 08:24 | Outpatient (CLI) | payer MEDICARE, OTHER, SELFPAY ==
--- NOTE | 2023-05-18 08:25 | DI.MG.S_ITS ---
UNILATERAL LEFT DIGITAL DIAGNOSTIC MAMMOGRAM 3D/2D WITH ADDITIONAL VIEWS: 05/18/2023 CLINICAL: Additional evaluation requested from prior study. Comparison is made to exams dated: 04/26/2023 mammogram, 04/23/2022 mammogram, 04/09/2021 mammogram, and 09/18/2020 [facility]. The left breast is heterogeneously dense, which may obscure small masses (category c / 51-75% glandular tissue). There is a stable biopsy clip in the left breast. There is a new left axillary lymph node superior region seen on the mediolateral oblique view only. This is seen in additional views. There also is a new irregular equal density focal asymmetry with a spiculated and indistinct margin in the left breast at 2 o'clock middle depth. This is seen in additional views. Additionally, there is an oval focal asymmetry with a circumscribed margin in the left breast at 10 o'clock middle depth. This is seen in additional views. This is increased in size. No other significant masses or calcifications are seen in the breast. IMPRESSION: INCOMPLETE: NEEDS ADDITIONAL IMAGING EVALUATION The new left axillary lymph node superior region seen on the mediolateral oblique view only is indeterminate. An ultrasound is recommended. The new irregular equal density focal asymmetry in the left breast at 2 o'clock middle depth is indeterminate. An ultrasound is recommended. The oval focal asymmetry in the left breast at 10 o'clock middle depth is indeterminate. An ultrasound is recommended. Based on the Tyrer Cuzick model (a risk assessment model) the patient's lifetime risk is 1.4% and her 10 year risk is 0.0%. According to the ACR, ACS, and NCCN guidelines, an annual breast MRI exam along with mammogram is recommended if the patient's lifetime risk is 20% or greater. This exam was interpreted at Station ID: [id number]. NOTE: For mammograms, a report in lay terms will be sent to the patient. Approximately 15% of breast malignancies will not be visualized mammographically. In the management of a palpable breast mass, a negative mammogram must not discourage biopsy of a clinically suspicious lesion. Electronically Signed By: Robinson bill/ken:05/18/2023 16:11:20 ACR BI-RADS Category 0: Incomplete [id number]
--- NOTE | 2023-05-18 08:28 | DI.US.S_ITS ---
LIMITED ULTRASOUND OF LEFT BREAST AND AXILLA: 05/18/2023 CLINICAL: Patient returns today to evaluate focal asymmetries in the left breast. Comparison is made to exams dated: 05/18/2023 mammogram, 04/26/2023 mammogram, 04/23/2022 mammogram, and 04/09/2021 mammogram - [facility]. Color flow ultrasound of the left breast 2-3 o'clock, 9-10 o'clock, and axilla regions was performed. Matos scale images of the real-time examination were reviewed. There is a 2.1 cm x 1.5 cm x 1.1 cm irregular mass with an angular and spiculated margin in the left breast at 2 o'clock posterior depth 9 cm from the nipple. This irregular mass is hypoechoic. This correlates with mammography findings. Color flow imaging demonstrates that there is vascularity present. There also is a left axillary lymph node with eccentric cortical thickening with a circumscribed margin. This left axillary lymph node displays fatty hilum. Additionally, there is a benign 1.9 cm x 1.9 cm x 1.1 cm oval cyst with a smooth internal wall in the left breast at 9 o'clock middle depth 3 cm from the nipple. This oval cyst is anechoic with posterior acoustic enhancement. This correlates with mammography findings. IMPRESSION: HIGHLY SUGGESTIVE OF MALIGNANCY The 2.1 cm x 1.5 cm x 1.1 cm irregular mass in the left breast at 2 o'clock posterior depth is highly suggestive of malignancy. An ultrasound guided biopsy is recommended. The findings and recommendations were discussed with the patient by the onsite radiologist, Dr. Calvillo, at the time of the exam. The left axillary lymph node with eccentric cortical thickening is suspicious of malignancy. An ultrasound guided biopsy is recommended. The 1.9 cm x 1.9 cm x 1.1 cm oval cyst in the left breast at 9 o'clock middle depth is consistent with a simple cyst and is benign. This exam was interpreted at Station ID: [id number]. Electronically Signed By: Robinson bill/ken:05/18/2023 16:16:58 letter sent: Biopsy Required Ultrasound BI-RADS: 5 Highly suggestive of malignancy
== END ==
PROVIDERS: PCP Family Medicine; Referring Provider Family Medicine; Visit Provider Family Medicine
DX: R92.8 Other abnormal and inconclusive findings on diagnostic imaging of breast (principal); N63.21 Unspecified lump in the left breast, upper outer quadrant; R59.0 Localized enlarged lymph nodes; N60.02 Solitary cyst of left breast
CPT/HCPCS: 76642; 77065; G0279

== ENCOUNTER → 2023-06-01 07:41 | Outpatient (CLI) | payer MEDICARE, OTHER, SELFPAY ==
--- NOTE | 2023-06-01 | DI.MG.S_ITS ---
UNILATERAL LEFT DIGITAL DIAGNOSTIC MAMMOGRAM 3D/2D POST-NEEDLE BIOPSY: 06/01/2023 CLINICAL: Post left breast biopsy. The left breast is heterogeneously dense, which may obscure small masses (category c / 51-75% glandular tissue). There is a biopsy clip in the left breast at the biopsy site. IMPRESSION: POST PROCEDURE MAMMOGRAM FOR MARKER PLACEMENT A biopsy clip in the left breast at the biopsy site. Based on the Tyrer Cuzick model (a risk assessment model) the patient's lifetime risk is 1.4% and her 10 year risk is 0.0%. According to the ACR, ACS, and NCCN guidelines, an annual breast MRI exam along with mammogram is recommended if the patient's lifetime risk is 20% or greater. This exam was interpreted at Station ID: [id number]. NOTE: For mammograms, a report in lay terms will be sent to the patient. Approximately 15% of breast malignancies will not be visualized mammographically. In the management of a palpable breast mass, a negative mammogram must not discourage biopsy of a clinically suspicious lesion. Electronically Signed By: Trey Jimenez M.D. fx/:06/01/2023 15:51:23 ACR BI-RADS Category Post-procedure mammogram for marker placement
--- NOTE | 2023-06-01 | PATH_ITS ---
[facility] Accession Number: [id number] No. of containers..01 Tissue . 01 Material submitted: . lymph node - LEFT AXILLARY LYMPH NODE . 01 Diagnosis: A: LYMPH NODE, LEFT AXILLARY, CORE BIOPSY: Minute fragment of unremarkable lymphoid tissue, see comment and microscopic description. [facility] 06/03/2023 1442 Local . 01 Comment: Concurrent flow cytometry analysis detected no monotypic B-cell or aberrant T-cell populations. See full flow cytometry report for details (specimen ID: [id number]). Due to the limited nature of the specimen, further characterization is precluded. If clinical suspicion is high for a malignancy/lymphoma, complete james excision may be indicated. Clinical and radiologic correlation is recommended. . 01 Electronically signed: . Angela Gabriel MD, Pathologist NPI- [id number] . 01 Gross description: . LEFT AXILLARY LYMPH NODE: Received in formalin is 1 fragment(s) of rizzo, soft tissue measuring 0.2 x 0.1 x 0.1 cm submitted entirely in 1 cassette(s) /EFRAIN 06/01/2023 2219 Local . 01 Microscopic: . Histologic sections demonstrate a minute fragment of lymphoid tissue composed of small lymphocytes. By flow cytometry, the lymphocytes are composed of predominantly T-cells and fewer polyclonal B-cells. There are no Hodgkin/RS-cells, granulomata, abnormal prominent fibrotic bands, metastatic carcinoma, or foreign bodies on the limited sample. - As part of ongoing quality checker, select slides were reviewed by Jailene Montes MD who agrees with the interpretation. . 01 Pathologist provided ICD-10: R59.9 . 01 CPT . 015168 Specimen Comment: A courtesy copy of this report has been sent to [facility] Pathology Performed at: 01 [facility] Cytology [address], [place], [place] [id number] MD Gil Zaidi MD Phone: [phone]
--- NOTE | 2023-06-01 | DI.US.S_ITS ---
ULTRASOUND GUIDED BIOPSY LEFT BREAST WITH POST ULTRASOUND IMAGIN06/01/2023 CLINICAL: Left breast mass with left axillary node biopsy. PATIENT CONSENT: Risks (minor bleeding, infection, vasovagal reaction and repeat procedure), benefits and alternatives were explained to the patient and written informed consent was obtained. Correlation is made to exams dated: 06/01/2023 mammogram, 05/18/2023 ultrasound, 05/18/2023 mammogram, 04/26/2023 mammogram, 04/23/2022 mammogram, and 04/09/2021 mammogram - [facility]. An ultrasound guided biopsy using real-time ultrasound was performed for the lymph node located in the left axilla. This was described on the previous ultrasound report. The skin was prepped in the usual manner. Local anesthetic was administered to the access site. The abnormality was approached from the lateral aspect. A 20 gauge biopsy needle was placed adjacent to the abnormality through an introducer device under ultrasound guidance. Once the needle was documented to be in the correct location, four specimens were obtained using an automated biopsy gun. Post procedure ultrasound imaging was obtained. The specimens were sent to the laboratory for pathological analysis. IMPRESSION: ULTRASOUND GUIDED BIOPSY BENIGN Ultrasound guided biopsy of the lymph node in the left axilla was successful. Pathology revealed minute fragment of lymphoid tissue without metastatic carcinoma on limited sample. Given limited nature of specimen, this may represent a sampling error as lymph node is morphologically suspicious on ultrasound in the context of biopsy proven ipsilateral breast cancer. If it would impact clinical management, repeat ultrasound guided biopsy can performed. This exam was interpreted at Station ID: [id number]. Trey Lopez M.D., Ph.D. prashanth lewis/:06/07/2023 17:47:24
--- NOTE | 2023-06-01 | DI.US.S_ITS ---
ULTRASOUND GUIDED BIOPSY LEFT BREAST USING VACUUM DEVICE WITH POST MAMMOGRAPHIC AND ULTRASOUND IMAGIN06/01/2023 CLINICAL: Left breast mass. PATIENT CONSENT: Risks (minor bleeding, infection, vasovagal reaction and repeat procedure), benefits and alternatives were explained to the patient and written informed consent was obtained. Correlation is made to exams dated: 06/01/2023 ultrasound biopsy, 06/01/2023 mammogram, 05/18/2023 ultrasound, 05/18/2023 mammogram, 04/26/2023 mammogram, and 04/23/2022 mammogram - [facility]. An ultrasound guided biopsy using real-time ultrasound was performed for the oval mass located in the left breast at 2 o'clock posterior depth. This was described on the previous ultrasound report. The skin was prepped in the usual manner. Local anesthetic was administered to the access site. The abnormality was approached from the lateral aspect. A 13 gauge biopsy needle was placed adjacent to the abnormality under ultrasound guidance. Once the needle was documented to be in the correct location, five specimens were obtained using the Mammotome biopsy system. Post procedure mammographic and ultrasound imaging demonstrates the clip at the targeted area. The specimens were sent to the laboratory for pathological analysis. IMPRESSION: ULTRASOUND GUIDED BIOPSY MALIGNANT Ultrasound guided biopsy of the mass in the left breast posterior depth was successful. 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 Recommend oncological and surgical consultation. Consider breast MRI to evaluation extent of disease. This exam was interpreted at Station ID: [id number]. Trey Lopez M.D., Ph.D. prashanth lewis/:06/07/2023 17:38:42
--- NOTE | 2023-06-01 | PATH_ITS ---
[facility] Accession Number: [id number] No. of containers..01 Tissue . 01 Material submitted: . breast - LEFT BREAST 2:00 9 CM FN . 01 Diagnosis: LEFT BREAST, 2 O'CLOCK, 9 CM FN, CORE NEEDLE BIOPSY: Invasive ductal carcinoma, please see Case Summary below. . . CASE SUMMARY: INVASIVE CARCINOMA OF THE BREAST . Procedure: Needle biopsy. Laterality: Left. Tumor site: 2 o'clock, 9 cm FN. Histologic type: Invasive carcinoma of no special type (ductal). Histologic grade ([place] Histologic Score) Glandular/tubular differentiation: Score 3. Nuclear pleomorphism: Score 3. Mitotic rate: Score 2. Overall grade: Grade 3. . Largest invasive focus: 9 mm. Ductal carcinoma in situ: Present. Architectural pattern: Solid. Nuclear grade: Grade 3 (high). Necrosis: Not identified. Lymphatic and/or vascular invasion: Not identified. Microcalcifications: Not identified. Additional findings: Estrogen receptor status (SP1): Negative. Progesterone receptor status (1E2): Negative. HER2 by immunohistochemistry (4B5): Positive (Score 3+). . [facility] 06/04/2023 1416 Local . 01 Comment: Dr. Mitchell also reviewed selected slides and agrees with the diagnosis of invasive high grade carcinoma. Dr. Hughes discussed preliminary results with Kenzie in Dr. Watts' office on 06/04/2023 at 12:47 p.m. . 01 Electronically signed: . Sandra Hughes MD, Pathologist NPI- [id number] . 01 Gross description: . Received is one formalin-filled container labeled with the patient's name labeled L. breast 2 o'clock 9 cm FN. The specimen is received with a plastic filter in container and sample loose in container, and consists of multiple yellow-rizzo fragments of soft tissue which range in size from less than 0.1 cm to 1.0 x 0.4 x 0.3 cm. All fragments are totally submitted in cassette A1. . Possible collection date and time per requisition 06/01/2023 at 0942 hours, total fixation time approximately 17 hours. ([id number]) /[place] 06/02/2023 0717 Local . 01 Microscopic: . Immunohistochemical stains were performed to characterize cells of interest. All control stains showed appropriate reactivity. . RESULTS: GATA3: Positive. E-cadherin: Positive. Myosin: Highlights myoepithelial cells. p63: Highlights myoepithelial cells. . Predictive marker immunohistochemical studies are performed on block A1 with the invasive carcinoma showing the following results: . Estrogen receptor (SP1): Negative. Progesterone receptor (1E2): Negative. Her2 (4B5): Positive (Score 3+). . Internal controls for ER and OK are present. Cold ischemic time is <5 minutes. The scoring criteria for breast biomarkers by immunohistochemistry is based on the ASCO/CAP guidelines (Prabhakar AC et al, J Clin Oncol: 2017Aug 24;36(20):2902-1285 and Garner ME et al, Arch Pathol Lab Med: 2009;134(6):907-22). Deparaffinized sections of formalin fixed tissue (along with appropriate positive controls) are incubated with the above antibody(s). Using the automated [place] stainer, tissue is incubated with the designated antibody which is then localized by a non-biotin, dual polymer detection system. The external controls are reviewed for appropriate reactivity and found to be adequate. Results on the target cell population are indicated above. These tests have not been validated on decalcified tissue. This test was developed and its performance characteristics determined by [employer]. It has not been cleared or approved by the U.S. Food and Drug Administration. The FDA has determined that such clearance or approval is not necessary. This test is used for clinical purposes. It should not be regarded as investigational or for research. . 01 Pathologist provided ICD-10: C50.912 . 01 CPT . 443144, Q59117, I04503, 068663, [id number], [id number] Specimen Comment: A courtesy copy of this report has been sent to [facility] Pathology Performed at: 01 [facility] [address], [place], [place] [id number] MD Gil Zaidi MD Phone: [phone]
== END ==
LOC: US 07:41
PROVIDERS: PCP Family Medicine; Referring Provider Family Medicine; Visit Provider Family Medicine
DX: C50.412 Malignant neoplasm of upper-outer quadrant of left female breast (principal); R92.332 Mammographic heterogeneous density, left breast; Z17.1 Estrogen receptor negative status [ER-]
CPT/HCPCS: 19083; 38505; 76942; 77065

== ENCOUNTER → 2023-06-24 07:31 | Outpatient (CLI) | payer MEDICARE, OTHER, SELFPAY ==
[2023-06-24 09:05] LABS: Add Manual Diff / Slide Review NO; Basophils Absolute Auto 0 /uL (0-100); Basophils Percent Auto 0.8 % (0-2); Eosinophils Absolute Auto 200 /uL (0-450); Eosinophils Percent Auto 3.1 % (2-4); Hematocrit 37.4 % (36-46); Hemoglobin 12.6 g/dL (12.0-16.0); Lymphocytes Absolute Auto 900 /uL (1100-4500); Lymphocytes Percent Auto 17.6 % (25-40); Mean Corpuscular HGB Conc 33.7 % (30-36); Mean Corpuscular Hemoglobin 30.6 PG (26-34); Mean Corpuscular Volume 90.9 fL (80-100); Monocytes Absolute Auto 700 /uL (0-900); Monocytes Percent Auto 13.6 % (3-14); Neutrophils Absolute Auto 3300 /uL (1500-7000); Neutrophils Percent Auto 64.9 % (50-75); Platelet Count 170 X10^3/uL (150-400); Red Blood Cell Count 4.12 X10^6/uL (4.0-5.2); Red Cell Distribution Width 13.3 % (11.6-14.8)
[2023-06-24 09:16] LABS: Alanine Aminotransferase 19 IU/L (<35); Albumin 4.6 g/dL (3.5-5.0); Albumin Globulin Ratio 1.8 (1.0-2.8); Alkaline Phosphatase 67 U/L (38-126); Aspartate Aminotransferase 23 IU/L (14-36); BUN Creatinine Ratio 22.6 (6-22); Bilirubin Total 0.7 mg/dL (0.2-1.3); Blood Urea Nitrogen 30 mg/dL (7-17); Calcium 10.5 mg/dL (8.4-10.2); Carbon Dioxide 23 mmol/L (22-32); Chloride 105 mmol/L (98-107); Cholesterol 176 mg/dL (140-199); Estimated Glomerular Filt Rate 40 mL/min (>60); Globulin 2.6 g/dL (1.7-4.1); Glucose 108 mg/dL (80-110); HDL Cholesterol 89 mg/dL (40-60); HEMOLYSIS < 15 (0-50); LDL Cholesterol Calculated 74 mg/dL (<100); Potassium 4.9 mmol/L (3.4-5.1); Sodium 134 mmol/L (137-145); Total Protein 7.2 g/dL (6.3-8.2); Triglycerides 63 mg/dL (35-150)
== END ==
PROVIDERS: PCP Family Medicine; Referring Provider Family Medicine; Visit Provider Family Medicine
DX: E21.3 Hyperparathyroidism, unspecified (principal); E03.9 Hypothyroidism, unspecified; E83.52 Hypercalcemia; D69.6 Thrombocytopenia, unspecified; E53.8 Deficiency of other specified B group vitamins; E72.11 Homocystinuria; E78.5 Hyperlipidemia, unspecified; I10 Essential (primary) hypertension; Z79.899 Other long term (current) drug therapy
CPT/HCPCS: 36415; 80053; 80061; 82310; 83970; 84443; 85025

== ENCOUNTER → 2023-06-30 10:57 | Outpatient (CLI) | payer MEDICARE, OTHER, SELFPAY ==
[2023-06-30 12:14] LABS: Blood Urea Nitrogen 26 mg/dL (7-17); Calcium 10.6 mg/dL (8.4-10.2); Carbon Dioxide 23 mmol/L (22-32); Chloride 105 mmol/L (98-107); Estimated Glomerular Filt Rate 43 mL/min (>60); Glucose 131 mg/dL (80-110); HEMOLYSIS 17 (0-50); Sodium 137 mmol/L (137-145)
== END ==
PROVIDERS: PCP Family Medicine; Referring Provider Family Medicine; Visit Provider Family Medicine
DX: E83.52 Hypercalcemia (principal); E78.00 Pure hypercholesterolemia, unspecified; I10 Essential (primary) hypertension
CPT/HCPCS: 36415; 80048

== ENCOUNTER → 2023-07-15 13:37 | Outpatient (CLI) | payer MEDICARE, OTHER, SELFPAY ==
[2023-07-15 14:12] LABS: Appearance Urine UA CLEAR; Bilirubin Urine UA NEGATIVE (NEGATIVE); Color Urine UA YELLOW; Glucose Urine UA NEGATIVE (Negative); Ketones Urine UA NEGATIVE (NEGATIVE); Leukocyte Esterase Urine UA NEGATIVE (NEGATIVE); Nitrite Urine UA NEGATIVE (Negative); Occult Blood Urine UA NEGATIVE (Negative); Protein Urine UA NEGATIVE (Negative); Specific Gravity Urine UA <=1.005 (1.000-1.035); Urobilinogen Urine UA 0.2 E.U./dL (0.2)
[2023-07-15 14:20] LABS: Bacteria Urine None Seen; RBC Urine None Seen (0-5/HPF); Squamous Epithelial Cell Urine None Seen (0-5/HPF); Urine Volume 10mL (spun); WBC Urine None Seen (0-5/HPF)
[2023-07-15 14:21] LABS: Culture Indicated Urine Cult Not Indicated
== END ==
LOC: LAB 13:38
PROVIDERS: PCP Family Medicine; Referring Provider Internal Medicine Cardiovascular Disease; Visit Provider Internal Medicine Cardiovascular Disease
DX: I51.7 Cardiomegaly (principal); R30.0 Dysuria
CPT/HCPCS: 36415; 81001; 83883

== ENCOUNTER → 2023-08-17 17:16 | Outpatient (CLI) | payer MEDICARE, OTHER, SELFPAY ==
[2023-08-17 18:45] LABS: BUN Creatinine Ratio 21.1 (6-22); Blood Urea Nitrogen 20 mg/dL (7-17); Calcium 10.4 mg/dL (8.4-10.2); Carbon Dioxide 22 mmol/L (22-32); Chloride 104 mmol/L (98-107); Estimated Glomerular Filt Rate 59 mL/min (>60); Glucose 117 mg/dL (80-110); HEMOLYSIS 49 (0-50); Potassium 4.6 mmol/L (3.4-5.1); Sodium 136 mmol/L (137-145)
== END ==
PROVIDERS: PCP Family Medicine; Referring Provider Physician Assistant; Visit Provider Physician Assistant
DX: N28.9 Disorder of kidney and ureter, unspecified (principal)
CPT/HCPCS: 36415; 80048

== ENCOUNTER → 2023-08-20 07:39 | Outpatient (CLI) | payer MEDICARE, OTHER, SELFPAY | PROVIDERS: PCP Family Medicine; Visit Provider Nurse Practitioner Family | DX: R30.0 Dysuria (principal) | CPT/HCPCS: 87086 ==

== ENCOUNTER 2023-08-21 07:51 | Emergency (ER) | payer MEDICARE, OTHER, SELFPAY ==
[2023-08-21] VITALS (12 sets, daily range): BP systolic 199–248; BP diastolic 91–118; PULSE 86–104; RESP 17–18; TEMP 36.6–36.7; O2SAT 95–100; BMI 31.4
--- NOTE | 2023-08-21 08:38 | ED.BACK ---
HPI - Back Pain/Injury General Chief Complaint: Back Pain/Injury Stated Complaint: Low Back Pain, Pelvic Pain Time Seen by Provider: 08/21/23 08:38 Source: patient, RN notes reviewed and old records reviewed Mode of arrival: Ambulatory Limitations: no limitations History of Present Illness HPI Narrative: 83-year-old female history of dyslipidemia, hypertension, hypothyroidism and dementia and recent diagnosis of breast cancer who presents with complaint of low back pain x3 weeks has not MRI ordered as an outpatient awaiting approval has been seen by Radiation/Oncology. Patient has some low back denies radiation, does have new weakness in her left foot that her daughter noticed about a week ago. Patient does appreciate it as well. She has not had any new bowel or bladder incontinence. Daughter notes some weakness difficulty with movement of the left leg over all but has been able to ambulate with a walker. She has some difficulty without 1. No fevers, no chest pain or shortness of breath, no nausea or vomiting. No other new GI or urinary symptoms. No issues with incontinence or retention. Patient has been taking Eckerman occasionally but forgets to take her pain medication. Daughter states she is fairly well-controlled pain bet[place]ourt during the daytime but has a lot of difficulty with sleep. She does have known breast CA, patient had lumpectomy had scans 6 weeks ago that were negative for metastases but has a an L-spine MR ordered as an outpatient by her oncologist but they have not been able to obtain yet. Patient daughter brought her is her pain has been increased particularly overnight. Patient did have a Eckerman this morning. She states pain is controlled at this time. Related Data Home Medications Medication Instructions Recorded Confirmed cholecalciferol (vitamin D3) PO 07/02/23 08/20/23 niacinamide 500 mg tablet 500 mg PO BID 07/02/23 08/20/23 nortriptyline 10 mg capsule See Rx Instructions PO BID 07/02/23 08/20/23 rivastigmine 4.6 mg/24 hour 1 patch topical DAILY 08/20/23 08/20/23 transdermal patch Previous Rx's Medication Instructions Recorded [place] 25G 1 in #12 ea 04/22/22 Syringes 3ml #12 ea 04/22/22 estradiol 0.01% (0.1 mg/gram) 1 g vaginal 3XW #42.5 grams 03/29/23 vaginal cream metoprolol succinate 25 mg 25 mg PO DAILY #180 tabs 04/12/23 tablet,extended release 24 hr cyanocobalamin (vitamin B-12) 1,000 mcg IM MONTHLY #12 mL 05/19/23 1,000 mcg/mL injection solution atorvastatin 10 mg tablet 10 mg PO .QOD #45 tabs 07/02/23 levothyroxine 50 mcg tablet 50 mcg PO DAILY #90 tabs 07/19/23 lisinopril 40 mg tablet 40 mg PO DAILY #90 tabs 07/20/23 Disabled [address]ing Permit #1 ea 08/09/23 ibuprofen 600 mg tablet 600 mg PO TID PRN pain #30 tabs 08/18/23 oxycodone 5 mg tablet 5 mg PO Q6H PRN pain #14 tabs 08/21/23 prednisone 10 mg tablets in a dose See Rx Instructions PO .COMPLEX 08/21/23 pack #21 ea Allergies Allergy/AdvReac Type Severity Reaction Status Date / Time Penicillins [PENICILLINS] Allergy Mild RASH Verified 08/20/23 07:38 Review of Systems Review of Systems ROS Unobtainable: All systems reviewed & are unremarkable except as noted in HPI and below Patient History Medical History COVID-19 (~10/11/22) Breast cyst Dementia (02/2022) Hyperparathyroidism Thrombocytopenia (~05/2010) Vitamin B12 deficiency Hypercalcemia Intraductal papilloma of left breast (~2018) Osteopenia Neuropathy of both feet Achilles tendon tear (2012) Osteoporosis Herniated lumbar intervertebral disc (09/2013) Burning sensation of foot Carpal tunnel syndrome (2004) BCC (basal cell carcinoma of skin) (2006) Actinic keratosis (2000) Chicken pox (1949) Measles (194) Osteoarthritis (2000) Hearing loss (~1946) Cataract (2012) Cataract (2011) History of heavy periods (1989) Endometriosis (1990) GERD (gastroesophageal reflux disease) Diverticular disease (2015) Hypothyroidism (2011) Hypertension (2000) Peripheral vascular disease (2001) Cardiac arrhythmia (2013) Skin cancer (2001) Otosclerosis (~06/23/17) 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 Grandmother No problems noted. Sister No problems noted. Social History Smoking Status: Former smoker Smoking Status: Former smoker alcohol intake frequency: 0-2 drinks per day Alcohol type: wine Substance Use Type: does not use Exam Narrative Exam Narrative: GENERAL: Alert and oriented to self and location, patient answers questions well but does note she has memory issues. She is in mild distress. HEENT: Head normocephalic, atraumatic, EOMI, pupils reactive, face symmetric, moist mucous membranes NECK: Supple, full range of motion CARDIOVASCULAR: Regular rate and rhythm without murmurs, rubs or gallops. RESPIRATORY: Breath sounds equal bilaterally, no wheezes rales or rhonchi. ABDOMEN: Soft, nontender. Normoactive bowel sounds all 4 quadrants. No guarding or rebound, rigidity, no mass : No CVA tenderness BACK: No cervical, thoracic or lumbar vertebral point tenderness. Patient has mildly decreased range of motion. No increased pain with straight leg raise. Rectal exam is deferred. Muscle strength is 5/5 in lower extremities with the exception of loss of dorsiflexion of the left foot patient can dorsiflex mildly but not to the same extent as the right., DTRs are 2/4 bilateral lower extremities. Dorsalis pedis and tibialis pulses are 2+ and lower extremities. Sensation is intact in the lower extremities. EXTREMITIES: Normal range of motion, no clubbing or edema. Neurovascularly intact NEUROLOGICAL: Cranial nerves II through XII grossly intact. Moving all extremities SKIN: Warm, dry, no petechiae, no rashes or lesions. Initial Vital Signs Initial Vital Signs: Vital Signs Pulse Rate 99 H 08/21/23 08:00 Pulse Oximetry 96 08/21/23 08:00 Course Orders Ordered: ED Orders 08/21/23 09:37 Urinalysis and Microscopic Stat Urine Culture Stat Discontinued Medications Acetaminophen (Acetaminophen 325 Mg Tablet) 650 mg PO NOW ONE Stop: 08/21/23 08:50 Last Admin: 08/21/23 10:16 Dose: 650 mg Documented By: JUAN F Vital Signs Vital signs: Vital Signs - 8 hr 08/21/23 11:39 Temperature 98.1 F Pulse Rate 87 Respiratory Rate 18 Blood Pressure 199/97 H Pulse Oximetry 100 Oxygen Delivery Method Room Air MDM - Back Pain/Injury Lab Data Labs: Lab Results 08/21/23 Range/Units 09:37 Urine Color Yellow Urine Appearance Cloudy Urine pH 6.0 (4.5-8.0) Ur Specific [place] <=1.005 (1.000-1.035) Urine Protein Negative (Negative) Urine Glucose (UA) Negative (Negative) g/dL Urine Ketones Negative (NEGATIVE) Urine Occult Blood Negative (Negative) Urine Nitrate Negative (Negative) Urine Bilirubin Negative (NEGATIVE) Urine Urobilinogen 0.2 (0.2) E.U./dL Ur Leukocyte Esterase Negative (NEGATIVE) Urine RBC None seen (0-5/HPF) Urine WBC 0-1/hpf (0-5/HPF) Ur Squamous Epith Cells 10-30 /hpf H D (0-5/HPF) Amorphous Sediment 2+ Urine Bacteria Few (2-10) H (None) Ur Culture Indicated? Specimen cultured Vol Urine Centrifuged 10ml (spun) Imaging Data Lspine MR: Radiologist's Impression: Close Lumbar Spine MRI (Signed) Edilia Rashid - 08/21/23 Outside Echo 06/30/23 Mammogram Diagnostic (Signed) Trey Jimenez - 06/01/23 Breast Biopsy Ultrasound (Signed) Trey Jimenez - 06/01/23 Breast Axilla Core Biopsy US (Signed) Trey Jimenez - 06/01/23 Breast Ultrasound (Signed) Robinson Downs - 05/18/23 Mammogram, Additional Views (Signed) Robinson Downs - 05/18/23 Mammogram Screening (Signed) Rachel Shine - 04/26/23 Mammogram Screening (Signed) Jose Rodas - 04/23/[address] (Signed) Trey Jimenez - 03/25/22 Knee X-Ray (Signed) Nicho Dawn - 12/22/21 Mammogram Diagnostic (Signed) Jerrell Méndez - 04/09/21 Breast Ultrasound (Signed) Jerrell Méndez - 04/09/21 Mammogram Diagnostic (Signed) Rojas,Abebe - 09/18/20 Breast Ultrasound (Signed) Rojas,Abebe - 09/18/20 Breast Ultrasound (Signed) Rojas,Abebe - 09/18/20 Mammogram Diagnostic (Signed) BarbaraCarmela brighteyu - 04/09/20 Breast Biopsy Ultrasound (Signed) Barbara,Fieyu - 04/09/20 Breast Ultrasound (Cancelled) 04/02/20 Mammogram Diagnostic (Signed) Call,Jose - 03/22/20 Breast Ultrasound (Signed) Call,Jose - 03/22/20 Breast Ultrasound (Signed) Call,Jose - 03/22/20 Brain MRI (Signed) OctaviaGonzalez - 10/11/19 Mammogram Diagnostic (Signed) Rojas,Abebe - 10/03/19 Breast Ultrasound (Signed) Rojas,Abebe - 10/03/19 Breast Ultrasound (Signed) Rojas,Abebe - 10/03/19 Mammogram Diagnostic (Signed) Sherman,Shila - 04/10/19 Breast Ultrasound (Signed) Sherman,Shila - 04/10/19 Breast Ultrasound (Signed) Sherman,Shila - 04/10/19 Mammogram Diagnostic (Signed) Gil Way - 10/28/18 Breast Ultrasound (Signed) WayGil cantrell - 10/28/18 Mammogram Diagnostic (Signed) Drew Pulido - 08/12/18 Breast Biopsy Ultrasound (Signed) Drew Pulido - 08/12/18 Mammogram, Additional Views (Signed) Tyree Rodriguez - 07/15/18 Breast Ultrasound (Signed) Tyree Rodriguez - 07/15/18 Mammogram Screening (Signed) Gil [address] - 06/27/18 DEXA Result 06/24/17 Mammogram Screening (Signed) Rachel Shine - 06/24/[address] [id number] Magnetic Resonance Report Signed Patient: Vaishnavi Fernandez MR#: [id number] : 1940 Acct:[id number] Age/Sex: 83 / F Date of Service: 08/21/23 Loc: ED Accession Number: [id number] Procedure: MR lumbar spine wo con Ordering Provider: Bri Brown D.O. PROCEDURE: MR LUMBAR SPINE WO CON INDICATIONS: back pain, foot drop left new, breast ca neg scans 6 weeks a TECHNIQUE: Noncontrast sagittal T1 spin echo and T2 fast echo, sagittal STIR, and T2 fast spin echo through the lumbar spine. In cases with scoliosis, additional coronal T2 fast spin echo may be performed. COMPARISON: [facility], , L-SPINE WITHOUT CONTRAST, 08/31/2013, 15:43. FINDINGS: Image quality: Excellent. Alignment and Curvature: There is trace retrolisthesis of L2 on L3, L3-L4, L4 on L5 and L5 on S1 Bone Marrow: Marrow is of normal overall signal. Moderate reactive endplate changes are present L4-5, minimal to mild L2-3, L3-4. No acute vertebral body compression fractures. Spinal Cord: Conus medullaris terminates at the L1-2 level. Visualized cord demonstrates normal signal and size. Paraspinous Soft Tissues: No paravertebral masses. Discs: Multilevel moderate to severe disc desiccation most severe at L5-S1. T12-L1: No disc bulge, spinal stenosis or foraminal narrowing. Mild facet hypertrophy. L1-L2: No disc mild facet hypertrophy. No appreciable interval progression. L2-L3: Mild disc bulge with moderate spinal stenosis, progressive. There is severe right and moderate to severe left foraminal narrowing with facet and ligamentum flavum hypertrophy progressive compared to 2014. L3-L4: Mild disc bulge with moderate to severe spinal stenosis. Previous extrusion is no longer visualized. Prominent epidural lipomatosis and facet/ligamentum flavum hypertrophy are present. There is moderate to severe left and moderate right foraminal narrowing progressive compared to prior exam notably on the left. L4-L5: Disc bulge with severe spinal stenosis including canal compression, progressive. There is interval extrusion extending caudally measuring approximately 9 mm. There is compromise of the exiting nerve roots. There is moderate to severe narrowing through the right subarticular recess, progressive. Moderate to severe left foraminal narrowing progressive compared to prior exam. L5-S1: Mild disc bulge with moderate spinal stenosis. Moderate to severe right and moderate left foraminal narrowing slightly progressive bilaterally. IMPRESSION: Multilevel degenerative changes with areas of progression as noted compared to 2014. Interval extrusion at L4-5 causing severe spinal stenosis. Dictated by: Edilia Rashid M.D. on 08/21/2023 at 10:22 Approved by: Edilia Rashid M.D. on 08/21/2023 at 10:27 [facility] Narrative Medical decision making narrative: 83-year-old female with known low back pain, increased weakness and new foot drop in the last week. Patient does have known breast CA had CT scans in the last 6 weeks that did not show any metastases but does have a new diagnosis of breast CA. She is following with Oncology/Radiation had recent lumpectomy lymph node resection. Daughter at bedside states no known metastases. With complaint of new footdrop, low back pain and known breast CA MR of L-spine seems appropriate. Also discussed options for pain management fairly controlled now so we will give a dose of Tylenol. LSpine MR, multilevel degenerative changes interval extrusion L4-L5 causing severe spinal stenosis including canal compression, progressive intervals extrusion extending caudally measuring 9 mm compromise of exiting nerve roots moderate to severe narrowing at the right subarticular recess progressive, moderate to severe left foraminal narrowing progressive compared to prior exam. Patient does also have some moderate stenosis at L2-L3 as well as severe right and moderate left foraminal narrowing facet and ligamentum flavum hypertrophy progressive compared to 2014 and moderate to severe stenosis with mild disc bulge but previous extrusion no longer visualized. Prominent epidural lipomatosis and facet ligamentum flavum hypertrophy are present with moderate to severe left and moderate right foraminal narrowing compared to prior exam notably on the left. Spoke with Dr. Rehman, family is comfortable can follow up with Dr. Dawn or Dr. Guy this week. Call for an appointment does not think steroids would be helpful risks versus benefit. Does note that if patient's pain is rapidly worsening any saddle anesthesia or urinary changes patient needs to be seen immediately and that would be surgical emergency. Spoke with patient and family, based on her level of dementia they do not wish for transfer or surgical intervention if they do not have to. Discussed signs and symptoms to watch for, return precautions. They states that the footdrop does not seem to be progressive her symptoms have not seemed to be progressing this week. Plan for steroids, we will give a dose of narcotic pain medication for nighttime to help with sleep need for follow-up. Spoke with patient as well as daughter at bedside about strict return precautions and then if patient develops cauda equina this can become permanent and not reversible. Discharge Plan Departure Patient Disposition: Home Clinical Impression: Spinal stenosis, Foot drop, left Instructions: Cauda Equina Syndrome Activity Restrictions/Additional Instructions: Follow-up with orthopedic surgery with either the spinal surgeon or PMR. Contact information is included below. Please call Wednesday morning to set up an appointment. You do have a urine culture pending, urine did not show clear signs of infection but takes 48-72 hours to result if it does show infection you would be contacted to start antibiotics. You can take steroids daily until gone. This medication can sometimes make you more hyperactive or have difficulty with sleep. I would recommend taking it in the morning and taking it with food. You can take Tylenol up to a 1000 mg every 6 hours as needed for pain and/or ibuprofen up to 600 mg every 6 hours as needed for pain. If necessary you can take 1-2 tablets of oxycodone every 6 hours as needed. This medication can make you sleepy do not drive, perform hazardous activities or make any major decisions while taking it. This medication will make you constipated please take a stool softener once to twice daily until stools are soft and regular. Prescription sent to [facility] in [place]. Your imaging does show compression at the distal spinal cord and nerve roots. You can develop something called cauda equina if you have new weakness, any numbness of the groin, any new urinary incontinence, retention, stool incontinence or increasing difficulty with walking or rapidly worsening pain you need to be seen emergently. Prescriptions: New oxycodone 5 mg tablet 5 mg PO Q6H PRN (Reason: pain) Qty: 14 0RF prednisone 10 mg tablets,dose pack See Rx Instructions .ROUTE .COMPLEX Qty: 21 0RF Rx Instructions: 6 tabs p.o. x1 day, then 5 tabs p.o. x1 day, then 4 tablets p.o. x1 day, then 3 tabs p.o. x1 day, then 2 tabs p.o. x1 day, then 1 tab p.o. x1 day No Action rivastigmine 4.6 mg/24 hour patch 24 hour 1 patch topical DAILY estradiol 0.01 % (0.1 mg/gram) cream 1 g VAG 3XW Qty: 42.5 3RF metoprolol succinate 25 mg tablet extended release 24 hr 25 mg PO DAILY Qty: 180 1RF cyanocobalamin (vitamin B-12) 1,000 mcg/mL solution 1,000 mcg IM MONTHLY Qty: 12 3RF atorvastatin 10 mg tablet 10 mg PO .QOD Qty: 45 0RF levothyroxine 50 mcg tablet 50 mcg PO DAILY Qty: 90 1RF lisinopril 40 mg tablet 40 mg PO DAILY Qty: 90 1RF ibuprofen 600 mg tablet 600 mg PO TID PRN (Reason: pain) Qty: 30 3RF (DME) [place] 25G 1 in Qty: 12 0RF Rx Instructions: Use to inject B12 monthly (DME) Syringes 3ml Qty: 12 0RF Rx Instructions: Use to inject B12 monthly nortriptyline 10 mg capsule See Rx Instructions PO BID Patient Comments: 08/17/23 Pt and state it's once daily Rx Instructions: 1 tab x 7 days, 2 tabs x 7 days, 3 tabs x 7 days, 4 tabs hereafter if tolerated orally twice a day; cholecalciferol (vitamin D3) PO niacinamide 500 mg tablet 500 mg PO BID (DME) Disabled Parking Permit See Rx Instructions .ROUTE .MEDSUPPLY Qty: 1 0RF Rx Instructions: Valid for 5 years Referrals: Hayley Garrido MD [Physician] - Eleni Watts DO [Primary Care Provider] - Stand Alone Forms: Patient Portal/API
--- NOTE | 2023-08-21 08:49 | DI.MRI.S_ITS ---
PROCEDURE: MR LUMBAR SPINE WO CON INDICATIONS: back pain, foot drop left new, breast ca neg scans 6 weeks a TECHNIQUE: Noncontrast sagittal T1 spin echo and T2 fast echo, sagittal STIR, and T2 fast spin echo through the lumbar spine. In cases with scoliosis, additional coronal T2 fast spin echo may be performed. COMPARISON: [facility], MR, L-SPINE WITHOUT CONTRAST, 08/31/2013, 15:43. FINDINGS: Image quality: Excellent. Alignment and Curvature: There is trace retrolisthesis of L2 on L3, L3-L4, L4 on L5 and L5 on S1 Bone Marrow: Marrow is of normal overall signal. Moderate reactive endplate changes are present L4-5, minimal to mild L2-3, L3-4. No acute vertebral body compression fractures. Spinal Cord: Conus medullaris terminates at the L1-2 level. Visualized cord demonstrates normal signal and size. Paraspinous Soft Tissues: No paravertebral masses. Discs: Multilevel moderate to severe disc desiccation most severe at L5-S1. T12-L1: No disc bulge, spinal stenosis or foraminal narrowing. Mild facet hypertrophy. L1-L2: No disc mild facet hypertrophy. No appreciable interval progression. L2-L3: Mild disc bulge with moderate spinal stenosis, progressive. There is severe right and moderate to severe left foraminal narrowing with facet and ligamentum flavum hypertrophy progressive compared to 2014. L3-L4: Mild disc bulge with moderate to severe spinal stenosis. Previous extrusion is no longer visualized. Prominent epidural lipomatosis and facet/ligamentum flavum hypertrophy are present. There is moderate to severe left and moderate right foraminal narrowing progressive compared to prior exam notably on the left. L4-L5: Disc bulge with severe spinal stenosis including canal compression, progressive. There is interval extrusion extending caudally measuring approximately 9 mm. There is compromise of the exiting nerve roots. There is moderate to severe narrowing through the right subarticular recess, progressive. Moderate to severe left foraminal narrowing progressive compared to prior exam. L5-S1: Mild disc bulge with moderate spinal stenosis. Moderate to severe right and moderate left foraminal narrowing slightly progressive bilaterally. IMPRESSION: Multilevel degenerative changes with areas of progression as noted compared to 2014. Interval extrusion at L4-5 causing severe spinal stenosis. Dictated by: Edilia Rashid M.D. on 08/21/2023 at 10:22 Approved by: Edilia Rashid M.D. on 08/21/2023 at 10:27
[2023-08-21 09:48] LABS: Appearance Urine UA CLOUDY; Bilirubin Urine UA NEGATIVE (NEGATIVE); Color Urine UA YELLOW; Glucose Urine UA NEGATIVE (Negative); Ketones Urine UA NEGATIVE (NEGATIVE); Leukocyte Esterase Urine UA NEGATIVE (NEGATIVE); Nitrite Urine UA NEGATIVE (Negative); Occult Blood Urine UA NEGATIVE (Negative); Protein Urine UA NEGATIVE (Negative); Specific Gravity Urine UA <=1.005 (1.000-1.035); Urobilinogen Urine UA 0.2 E.U./dL (0.2)
[2023-08-21 09:58] LABS: Amorphous Sediment Urine 2+; Bacteria Urine Few (2-10); RBC Urine None Seen (0-5/HPF); Squamous Epithelial Cell Urine 10-30 /HPF (0-5/HPF); Urine Volume 10mL (spun); WBC Urine 0-1/HPF (0-5/HPF)
[2023-08-21 09:59] LABS: Culture Indicated Urine Specimen Cultured
[2023-08-21] MEDS: ACETAMINOPHEN 325 MG TABLET 650 MG PO (10:16)
--- NOTE | 2023-08-21 11:38 | PC.NURSE ---
New back pain with left foot drop. Some burning in pelvic area. Pain is mid lumbar spine. No trauma. Has known cancer.
== END 2023-08-21 11:40 | disposition home or self-care (01) ==
PROVIDERS: Emergency Provider Emergency Medicine; PCP Family Medicine
DX: M48.061 Spinal stenosis, lumbar region without neurogenic claudication (principal); M21.372 Foot drop, left foot
CPT/HCPCS: 72148; 81001; 87086; 99284

== ENCOUNTER 2023-09-06 13:41 | Day surgery (SDC) | payer MEDICARE, OTHER, SELFPAY ==
[2023-09-01 08:00] VITALS: BMI 32.9
[2023-09-06] VITALS (9 sets, daily range): BP systolic 108–185; BP diastolic 75–102; PULSE 94–103; RESP 16–20; TEMP 36.1–36.3; O2SAT 97–99; BMI 32.9
--- NOTE | 2023-09-06 15:47 | PM.PREOP ---
Pre-operative Note Interval Note History & Physical reviewed/Exam performed by Physician: Yes Changes to H&P: No
[2023-09-06] MEDS: ACETAMINOPHEN 325 MG TABLET 975 MG PO (15:48)
[2023-09-06] MEDS: LACTATED RINGERS 1,000 ML 42 ML IV (16:07)
[2023-09-06] MEDS: CEFAZOLIN 2 GM/100 ML PREMIX 100 ML IV (16:10)
--- NOTE | 2023-09-06 16:33 | SUR.OPER ---
Prone on spine table, head in foam head support, padded chest and pelvic supports, gel pad at knees, lower legs supported by pillows; nipples, genitalia and toes free of pressure, arms secured on foam padded arm boards at <90 degrees abduction. Tape over blanket at thigh secured to table.
[2023-09-06] MEDS: BUPIVACAINE 0.25% (PF) 30 ML, EPINEPHrine 0.15 MG INJ (16:38)
--- NOTE | 2023-09-06 16:40 | SUR.OPER ---
PT REPORTS FOOT DROP AND BLE WEAKNESS PRIOR TO SURGERY
--- NOTE | 2023-09-06 17:20 | DI.RAD.S_ITS ---
PROCEDURE: XR LUMBAR SPINE 2-3V INDICATIONS: S TECHNIQUE: 2 operative C-arm views of the lumbar spine were acquired. COMPARISON: [facility], , L-SPINE 2-3 VIEWS, 08/14/2013, 11:32. FINDINGS: 2 images demonstrate that the L5 level is localized posteriorly on the lateral view. IMPRESSION: Operative C-arm imaging utilized during lumbar procedure. Dictated by: Pa Young M.D. on 09/07/2023 at 8:42 Approved by: Pa Young M.D. on 09/07/2023 at 8:49
--- NOTE | 2023-09-06 17:33 | PM.OP.1 ---
Operative Date/Time/Diagnoses Date of procedure: 09/06/23 Time of procedure: 16:15 Pre-op diagnosis: 1. L4-5 spinal stenosis with neurogenic claudication 2. 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 L4-5 laminectomy with bilateral partial facetecomies 2. L4-5 microdiscectomy Same procedure as scheduled: Yes Indications: Patient has been having chronic back pain and worsening lumbar radiculopathy and symptoms of neurogenic claudication. Patient has severe L4-5 spinal stenosis with extruded disc causing left worse than right radiculopathy correlating with her symptoms confirmed on her MRI. Patient failed multiple conservative management with worsening pain weakness and numbness in her lower extremity. Patient has been having difficulty performing activity of daily living. After discussing risks benefits of treatment options, patient elected proceed with surgery. Surgeon: Hayley Garrido Data Processing Specialist: Sienna Jenkins Click Yes if Unassisted: No Anesthesia Type: General Operative Notes Closure Type: primary Specimen(s): none sent Estimated Blood Loss (mL): 5 Procedure in detail: Patient was seen in the preoperative area. Risks and benefits of the surgery was discussed with the patient. Informed consent was obtained from the patient and placed in the chart. Surgical site was marked. Patient was taken to the operative room. General anesthesia was administered. Prophylactic antibiotic was given to the patient less than 30 min before the incision was made. Patient was placed into a prone position on the Igor table. Patient's back was then prepped and draped in the sterile fashion. Time-out was performed at this time. Using AP and lateral C-arm imaging the interval between L4-5 was identified and marked on patient's back. A 1 inch incision 1 in from midline was made on the left side. The fascia was incised in line with skin incision. Globus MARS retractors was placed inside the incision and docked onto the L4 lamina. Using microsurgical technique and operating microscope, a L4 laminectomy was performed using a Kerrison rongeur. Liagamentum flavum was resected at the site of the laminotomy. Either side of the dura was exposed. Bilateral partial facetcomies was performed to further decompress the lateral recess. The L4-5 disc was exposed at this time by retracting the dura medially to expose the disc space. There is multiple fragments of extruded disc fragments which appears to be new causing significant lateral recess stenosis with L4 nerve root impingement. Centrally there is a partially calcified central disc extrusion just caudal to the L4-5 disc space which appears to be chronic in nature. Using pituitary Kerrison rongeur microdiskectomy was performed by removing the disc fragments from the epidural space lateral recess to decompress the epidural space lateral recess and neural foramen. After the laminectomy and microdiskectomy was completed, the area medial lateral superior and inferior to the area of the laminectomy was inspected and explored using a micro curette. No other impinging structure was identified. The wound was then irrigated with sterile normal saline. 40 mg Depo-Medrol was placed into the epidural space. The deep fascia was closed with 1-0 Vicryl. The subcutaneous tissue was closed with 2-0 Vicryl. The skin was closed with skin hector. Patient tolerated the procedure well. There were no complications. Patient was transferred recovery room in stable condition. Complications: none Post-operative Condition: stable Disposition: PACU Plan for aftercare: Discharge to home
[2023-09-06] MEDS: OXYCODONE IR 5 MG TABLET PO (18:19)
== END 2023-09-06 18:55 | disposition home or self-care (01) ==
PROVIDERS: PCP Family Medicine; Referring Provider Orthopaedic Surgery Orthopaedic Surgery of the Spine; Visit Provider Orthopaedic Surgery Orthopaedic Surgery of the Spine
PROC: (CPT 63030; principal; 2023-09-06 15:45)
DX: M48.062 Spinal stenosis, lumbar region with neurogenic claudication (principal); M51.26 Other intervertebral disc displacement, lumbar region; M54.16 Radiculopathy, lumbar region
CPT/HCPCS: 63030; 72100; 76000; J0171; J0690; J1100; J2405; J2704; J2919; J3010

== ENCOUNTER → 2023-09-11 12:21 | Outpatient (CLI) | payer MEDICARE, OTHER, SELFPAY | PROVIDERS: PCP Family Medicine; Visit Provider Physician Assistant Surgical | DX: R30.0 Dysuria (principal); N94.89 Other specified conditions associated with female genital organs and menstrual cycle | CPT/HCPCS: 87077; 87086; 87210 ==

== ENCOUNTER → 2023-11-02 16:09 | Outpatient (CLI) | payer MEDICARE, OTHER, SELFPAY ==
--- NOTE | 2023-11-02 16:12 | DI.US.S_ITS ---
PROCEDURE: US PERIPH VENOUS LOW EXTREM BI INDICATIONS: BILATERAL SWELLING. POST LAMINECTOMY. TECHNIQUE: Real-time imaging, as well as color and pulse Doppler interrogation, were performed of the deep veins of both legs from the inguinal ligament to the popliteal fossa, with documentation of the visualized calf veins. COMPARISON: None. FINDINGS: Right: The common femoral, femoral, popliteal, and the visualized calf veins are normally compressible, and free of intraluminal thrombus. Color and pulse Doppler demonstrate normal phasic intravascular flow. There is normal augmentation response to distal compression maneuver. Left: The common femoral, femoral, popliteal, and the visualized calf veins are normally compressible, and free of intraluminal thrombus. Color and pulse Doppler demonstrate normal phasic intravascular flow. There is normal augmentation response to distal compression maneuver. IMPRESSION: No findings of deep venous thrombosis in either lower extremity. Dictated by: Casey Orourke M.D. on 11/02/2023 at 17:46 Approved by: Casey Orourke M.D. on 11/02/2023 at 17:46
== END ==
PROVIDERS: PCP Family Medicine; Referring Provider Orthopaedic Surgery Orthopaedic Surgery of the Spine; Visit Provider Orthopaedic Surgery Orthopaedic Surgery of the Spine
DX: Z98.890 Other specified postprocedural states (principal)
CPT/HCPCS: 93970

== ENCOUNTER → 2023-11-02 16:12 | Outpatient (CLI) | payer MEDICARE, OTHER, SELFPAY ==
[2023-11-02 17:56] LABS: Appearance Urine UA CLEAR; Bilirubin Urine UA NEGATIVE (NEGATIVE); Color Urine UA YELLOW; Glucose Urine UA NEGATIVE (Negative); Ketones Urine UA NEGATIVE (NEGATIVE); Leukocyte Esterase Urine UA TRACE (NEGATIVE); Nitrite Urine UA NEGATIVE (Negative); Occult Blood Urine UA NEGATIVE (Negative); Protein Urine UA NEGATIVE (Negative); Specific Gravity Urine UA <=1.005 (1.000-1.035); Urobilinogen Urine UA 0.2 E.U./dL (0.2)
[2023-11-02 17:58] LABS: pH Urine UA 5.5 (4.5-8.0)
[2023-11-02 18:02] LABS: Bacteria Urine Occasional (0-1); Culture Indicated Urine Cult Not Indicated; RBC Urine 0-1/HPF (0-5/HPF); Squamous Epithelial Cell Urine 1-5 /HPF (0-5/HPF); Urine Volume 10mL (spun); WBC Urine 0-1/HPF (0-5/HPF)
== END ==
PROVIDERS: PCP Family Medicine; Referring Provider Family Medicine; Visit Provider Family Medicine
DX: R30.9 Painful micturition, unspecified (principal); Z98.890 Other specified postprocedural states
CPT/HCPCS: 81001; 93970

== ENCOUNTER 2024-03-04 06:09 | Emergency (ER) | payer MEDICARE, OTHER, SELFPAY ==
[2024-03-04] VITALS (12 sets, daily range): BP systolic 159–226; BP diastolic 72–107; PULSE 91–101; RESP 17–31; TEMP 36.4; O2SAT 96–100; BMI 29.0
--- NOTE | 2024-03-04 06:16 | EKG_ITS ---
[address] [address] Test Date: 2024-03-04 Pat Name: Vaishnavi Fernandez Department: [facility] Room: Gender: Female Radio Rigger: KADEN MORILLO : 1940 Requested By: Order Number: [id number] Reading MD: Олег Albarran MD Measurements Intervals [place] Rate: 96 P: 69 [place]: 170 QRS: 49 QRSD: 70 T: 62 QT: 344 QTc: 434 Interpretive Statements Normal sinus rhythm Electronically Signed On 03-04-2024 9:53:11 PST by Олег Albarran MD
--- NOTE | 2024-03-04 06:21 | DI.RAD.S_ITS ---
PROCEDURE: XR CHEST 1V INDICATIONS: Chest pain TECHNIQUE: One view of the chest was acquired. COMPARISON: None. FINDINGS: Surgical changes and devices: Left axillary surgical clips.. Lungs and pleura: Lungs are clear. No pleural effusions or pneumothorax. Mediastinum: Mediastinal contours appear normal. Heart size is normal. Bones and chest wall: No suspicious bony lesions. Calcification at the left rotator interval tear be seen with calcific tendinopathy. Bilateral glenohumeral osteoarthritis is present. Overlying soft tissues appear otherwise unremarkable. IMPRESSION: No acute cardiopulmonary abnormality is seen. Dictated by: Sandra Torres M.D. on 03/04/2024 at 8:50 Approved by: Sandra Torres M.D. on 03/04/2024 at 8:51
--- NOTE | 2024-03-04 06:22 | ED_ITS ---
HPI - Chest Pain <Bri Sarmiento MD - Last Filed: 03/04/24 20:47> General Chief Complaint: Chest Pain Stated Complaint: Chest pain; started 2 hours ago Time Seen by Provider: 03/04/24 06:12 History of Present Illness HPI narrative: 84-year-old female with history of moderate dementia, hypertension, hypothyroidism, hyperlipidemia, left breast cancer presents by private vehicle from home for approximately 1-2 hours of left-sided chest pain. Pain is intermittent, patient can not identify what makes the pain come or go. No medications taken prior to arrival. Per record review patient saw Dr. Fitch at [facility] cardiology in June of 2023 for ?abnormal echo?, at that time patient was noted to have an EF of 65-70%, normal diastolic function, severe right ventricle hypertrophy, normal right ventricle size and function, however this was felt to be similar to echo from 2013 and no further cardiac recommendations were made Related Data Home Medications Medication Instructions Recorded Confirmed cholecalciferol (vitamin D3) PO 07/02/23 02/04/24 ketoconazole 2 % topical cream 1 applic topical 09/11/23 02/04/24 rivastigmine 9.5 mg/24 hour 9.5 mg transdermal DAILY 02/04/24 02/04/24 transdermal patch Previous Rx's Medication Instructions Recorded [place] 25G 1 in #12 ea 04/22/22 Syringes 3ml #12 ea 04/22/22 metoprolol succinate 25 mg 25 mg PO DAILY #180 tabs 04/12/23 tablet,extended release 24 hr cyanocobalamin (vitamin B-12) 1,000 mcg IM MONTHLY #12 mL 05/19/23 1,000 mcg/mL injection solution Disabled Parking Permit #1 ea 08/09/23 ibuprofen 600 mg tablet 600 mg PO TID PRN pain #30 tabs 08/18/23 levothyroxine 50 mcg tablet 50 mcg PO DAILY #90 tabs 09/16/23 ondansetron 4 mg disintegrating 4 mg PO Q6-8H PRN nausea and 10/01/23 tablet vomiting #30 tabs nortriptyline 10 mg capsule See Rx Instructions PO .COMPLEX 11/05/23 #270 caps celecoxib 200 mg capsule 200 mg PO DAILY #90 caps 11/30/23 lisinopril 40 mg tablet 40 mg PO DAILY #90 tabs 01/27/24 quetiapine 25 mg tablet (Seroquel) 12.5 mg (1/2 x 25 mg) PO DAILY PRN 02/08/24 anxiety #30 tabs Allergies Allergy/AdvReac Type Severity Reaction Status Date / Time Penicillins [PENICILLINS] Allergy Mild RASH Verified 02/04/24 08:53 donepezil AdvReac Diarrhea Verified 02/04/24 08:53 Patient History <Bri Sarmiento MD - Last Filed: 03/04/24 20:47> Medical History Intraductal papilloma of left breast (~2018) Right ventricular hypertrophy History of Mohs micrographic surgery for skin cancer COVID-19 (~10/11/22) Dementia (02/2022) Hyperparathyroidism Thrombocytopenia (~05/2010) Vitamin B12 deficiency Hypercalcemia Breast cyst Osteopenia Neuropathy of both feet Achilles tendon tear (2012) Osteoporosis Herniated lumbar intervertebral disc (09/2013) Burning sensation of foot Carpal tunnel syndrome (2004) BCC (basal cell carcinoma of skin) (2006) Actinic keratosis (2000) Chicken pox (1949) Measles (1946) Osteoarthritis (2000) Hearing loss (~1946) Cataract (2012) Cataract (2011) History of heavy periods (1989) Endometriosis (1990) GERD (gastroesophageal reflux disease) Diverticular disease (2015) Hypothyroidism (2011) Hypertension (2000) Peripheral vascular disease (2001) Cardiac arrhythmia (2013) Skin cancer (2001) Otosclerosis (~06/23/17) 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) Surgical History S/P laminectomy (~08/2023) History of lumpectomy of left breast (07/09/23) Parathyroid adenoma (~2013) History of colonoscopy (2015) History of endoscopy (2010) Anesthesia History of ear surgery (1998) Hx of total knee arthroplasty (2012) Status post parathyroidectomy (2013) History of carpal tunnel repair (2004) Status post hysterectomy with oophorectomy (1990) Family History Father Heart disease Hypertension Heart failure Diabetes mellitus Grandmother Dementia CVA (cerebral vascular accident) Mother Hypothyroid Dementia Breast cancer Brain bleed Grandfather CVA (cerebral vascular accident) Grandfather No problems noted. Grandmother No problems noted. Sister No problems noted. Social History household members: spouse Smoking Status: Former smoker Smoking Status: Former smoker alcohol intake frequency: 0-2 drinks per day Alcohol type: wine Exam <Bri Sarmiento MD - Last Filed: 03/04/24 20:47> Initial Vital Signs Initial Vital Signs: Vital Signs Temperature 97.5 F L 03/04/24 06:21 Pulse Rate 95 H 03/04/24 06:21 Respiratory Rate 20 03/04/24 06:21 Blood Pressure 226/107 H 03/04/24 06:21 Pulse Oximetry 96 03/04/24 06:21 Oxygen Delivery Method Room Air 03/04/24 06:21 Const: Awake, alert, no acute distress, nontoxic appearing Cardiac: regular rate, regular rhythm RESP: unlabored, clear bilaterally, no wheezing GI: Soft, nontender, nondistended MSK: No edema, full range of motion, pulses equal Skin: Warm, Dry, intact, no rashes Neuro: AO x2, CN II-XII grossly intact, moves all extremities <Adriana Lai MD - Last Filed: 03/04/24 08:35> Initial Vital Signs Initial Vital Signs: Vital Signs Temperature 97.5 F L 03/04/24 06:21 Pulse Rate 95 H 03/04/24 06:21 Respiratory Rate 20 03/04/24 06:21 Blood Pressure 226/107 H 03/04/24 06:21 Pulse Oximetry 96 03/04/24 06:21 Oxygen Delivery Method Room Air 03/04/24 06:21 Course <Bri Sarmiento MD - Last Filed: 03/04/24 20:47> Orders Ordered: Discontinued Medications Aspirin (Aspirin 81 Mg Chew Tab) 324 mg PO NOW ONE Stop: 03/04/24 06:22 Last Admin: 03/04/24 06:29 Dose: 324 mg Documented By: KELSEY Nitroglycerin (Nitroglycerin 0.4 Mg Sl Tab) 0.4 mg SL [id number] PRN PRN Reason: Chest Pain Last Admin: 03/04/24 06:44 Dose: 0.4 mg Documented By: Admin: 03/04/24 06:37 Dose: 0.4 mg Documented By: Admin: 03/04/24 06:30 Dose: 0.4 mg Documented By: KELSEY Vital Signs Vital signs: Vital Signs - 8 hr 03/04/24 06:21 03/04/24 06:33 03/04/24 06:37 Temperature 97.5 F L Pulse Rate 95 H 101 H Respiratory Rate 20 31 H Blood Pressure 226/107 H 166/79 H Pulse Oximetry 96 99 Oxygen Delivery Method Room Air 03/04/24 06:37 03/04/24 06:43 03/04/24 06:43 Temperature Pulse Rate 100 H 101 H Respiratory Rate 22 23 Blood Pressure 160/76 H Pulse Oximetry 97 98 Oxygen Delivery Method Room Air Room Air 03/04/24 06:50 03/04/24 06:51 03/04/24 06:51 Temperature Pulse Rate 100 H 101 H Respiratory Rate 23 27 H Blood Pressure 159/73 H Pulse Oximetry 98 98 Oxygen Delivery Method Room Air 03/04/24 06:58 03/04/24 06:58 03/04/24 07:00 Temperature Pulse Rate 93 H 91 H Respiratory Rate 21 17 Blood Pressure 159/72 H Pulse Oximetry 98 100 Oxygen Delivery Method 03/04/24 07:00 03/04/24 07:38 03/04/24 07:38 Temperature Pulse Rate 94 H Respiratory Rate 22 Blood Pressure 163/74 H 176/78 H Pulse Oximetry 97 Oxygen Delivery Method 03/04/24 07:45 03/04/24 07:45 Temperature Pulse Rate 100 H Respiratory Rate 25 H Blood Pressure 197/88 H Pulse Oximetry 98 Oxygen Delivery Method <Adriana Lai MD - Last Filed: 03/04/24 08:35> Orders Ordered: Discontinued Medications Aspirin (Aspirin 81 Mg Chew Tab) 324 mg PO NOW ONE Stop: 03/04/24 06:22 Last Admin: 03/04/24 06:29 Dose: 324 mg Documented By: KELSEY Nitroglycerin (Nitroglycerin 0.4 Mg Sl Tab) 0.4 mg SL [id number] PRN PRN Reason: Chest Pain Last Admin: 03/04/24 06:44 Dose: 0.4 mg Documented By: Admin: 03/04/24 06:37 Dose: 0.4 mg Documented By: Admin: 03/04/24 06:30 Dose: 0.4 mg Documented By: KELSEY Vital Signs Vital signs: Vital Signs - 8 hr 03/04/24 06:21 03/04/24 06:33 03/04/24 06:37 Temperature 97.5 F L Pulse Rate 95 H 101 H Respiratory Rate 20 31 H Blood Pressure 226/107 H 166/79 H Pulse Oximetry 96 99 Oxygen Delivery Method Room Air 03/04/24 06:37 03/04/24 06:43 03/04/24 06:43 Temperature Pulse Rate 100 H 101 H Respiratory Rate 22 23 Blood Pressure 160/76 H Pulse Oximetry 97 98 Oxygen Delivery Method Room Air Room Air 03/04/24 06:50 03/04/24 06:51 03/04/24 06:51 Temperature Pulse Rate 100 H 101 H Respiratory Rate 23 27 H Blood Pressure 159/73 H Pulse Oximetry 98 98 Oxygen Delivery Method Room Air 03/04/24 06:58 03/04/24 06:58 03/04/24 07:00 Temperature Pulse Rate 93 H 91 H Respiratory Rate 21 17 Blood Pressure 159/72 H Pulse Oximetry 98 100 Oxygen Delivery Method 03/04/24 07:00 03/04/24 07:38 03/04/24 07:38 Temperature Pulse Rate 94 H Respiratory Rate 22 Blood Pressure 163/74 H 176/78 H Pulse Oximetry 97 Oxygen Delivery Method 03/04/24 07:45 03/04/24 07:45 Temperature Pulse Rate 100 H Respiratory Rate 25 H Blood Pressure 197/88 H Pulse Oximetry 98 Oxygen Delivery Method MDM - Chest Pain <Bri Sarmiento MD - Last Filed: 03/04/24 20:47> Lab Data 03/04/24 06:30 03/04/24 06:30 Labs: Lab Results 03/04/24 Range/Units 06:30 WBC 6.1 (4.5-11.0) X10^3/uL RBC 4.29 (4.0-5.2) X10^6/uL Hgb 13.0 (12.0-16.0) g/dL Hct 39.1 (36-46) % MCV 91.2 (80-100) fL MCH 30.4 (26-34) PG MCHC 33.4 (30-36) % RDW 12.7 (11.6-14.8) % Plt Count 149 L (150-400) X10^3/uL Neut % (Auto) 75.2 H (50-75) % Lymph % (Auto) 8.7 L (25-40) % [place] % (Auto) 12.7 (3-14) % Eos % (Auto) 2.6 (2-4) % Baso % (Auto) 0.8 (0-2) % Neut # (Auto) 4600 (5526-1048) /uL Lymph # (Auto) 500 L (9420-6422) /uL [place] # (Auto) 800 (0-900) /uL Eos # (Auto) 200 (0-450) /uL Baso # (Auto) 0 (0-100) /uL PT 11.0 (9.4-12.5) SECONDS INR 1.0 (0.9-1.3) D-Dimer 1908 H (<500) ng/ml Sodium 136 L (137-145) mmol/L Potassium 4.5 (3.4-5.1) mmol/L Chloride 106 (98-107) mmol/L Carbon Dioxide 24 (22-32) mmol/L BUN 20 H (7-17) mg/dL Creatinine 0.94 (0.52-1.04) mg/dL Estimated GFR 60 (>60) mL/min BUN/Creatinine Ratio 21.3 (6-22) Glucose 120 H (80-110) mg/dL Calcium 10.6 H (8.4-10.2) mg/dL Magnesium 1.7 (1.6-2.3) mg/dL Total Bilirubin 0.7 (0.2-1.3) mg/dL AST 27 (14-36) IU/L ALT 19 (<35) IU/L Alkaline Phosphatase 110 (38-126) U/L Total Creatine Kinase 98 (30-135) U/L Troponin I < 0.012 (0.01-0.034) ng/mL NT-Pro-B Natriuret Pep 126 (<450) pg/mL Total Protein 7.6 (6.3-8.2) g/dL Albumin 4.6 (3.5-5.0) g/dL Globulin 3.0 (1.7-4.1) g/dL Albumin/Globulin Ratio 1.5 (1.0-2.8) ECG Data Interpretation: Normal sinus rhythm at 96 beats per minute. Normal [place], no ST T wave changes, no STEMI MDM Narrative Medical decision making narrative: Intermittent left-sided chest pains. Other than stable right ventricular disease patient has no known coronary disease. She does have a history of breast cancer and dementia. Initial physical exam unremarkable, EKG sinus rhythm without concerning ischemic findings. Initial blood pressure quite elevated. She was given aspirin and nitroglycerin, which should help to decrease her blood pressure. Cardiac workup initiated. D-dimer elevated, CTA ordered for assessment. Care of patient signed to Dr. Lai at 0700 7am Care assumed, Dr Lai. Chart reviewed, patient is independently evaluated CC: 1-2 hours left-sided pleuritic chest pain Complicating co-morbidities: Dementia, prior breast cancer, no known coronary disease Data collected from: patient Medical records reviewed: Cardiology note from June 2023 for preoperative cardiac evaluation is reviewed Differential considered: Acute coronary syndrome, viral etiology, pleuritic chest pain, pneumothorax, musculoskeletal etiology, congestive heart failure Exam documented above, pertinent findings include: Lab Test results independently reviewed as above. Pertinent findings: CBC is unremarkable D-dimer is elevated at 1908 which is high even age corrected Chemistries show appropriate renal function, no concern with liver abnormalities Initial troponin is undetectable BNP is low Independently reviewed EKG: EKG shows sinus tach at 96, no acute ischemic changes Imaging studies independently reviewed: Chest x-ray shows no acute changes, no significant interstitial findings or cardiomegaly Discussion: 84-year-old woman with upper left pleuritic type chest pain lasting approximately 2 hours this morning. Workup does not suggest acute coronary syndrome, pneumothorax, pulmonary embolism, congestive heart failure, developing pneumonia. D-dimer was elevated and CT PE study was reassuring. Suggest an of increasing findings in the upper lung field, patient is not wheezing, she has had radiation to that is side with her previous breast cancer. I do not suspect based on absence of fever, cough, myalgias and low white blood cell count, she has a developing pneumonia at this time. Did discuss that possibility with her, went over all of the negative findings, most likely explanation at this point is either pleuritic pain or musculoskeletal pain. She is able to take ibuprofen. Discussed treatment and expect course of resolution for pleuritic and musculoskeletal pain along with reasons to return to the emergency department. There was no indication for additional lab work, imaging testing or hospitalization. Patient has been essentially pain-free since arriving in the emergency department. Questions are answered and they will be discharge Heart score is 2 based on age alone <Adriana Lai MD - Last Filed: 03/04/24 08:35> Lab Data Labs: Lab Results 03/04/24 Range/Units 06:30 WBC 6.1 (4.5-11.0) X10^3/uL RBC 4.29 (4.0-5.2) X10^6/uL Hgb 13.0 (12.0-16.0) g/dL Hct 39.1 (36-46) % MCV 91.2 (80-100) fL MCH 30.4 (26-34) PG MCHC 33.4 (30-36) % RDW 12.7 (11.6-14.8) % Plt Count 149 L (150-400) X10^3/uL Neut % (Auto) 75.2 H (50-75) % Lymph % (Auto) 8.7 L (25-40) % [place] % (Auto) 12.7 (3-14) % Eos % (Auto) 2.6 (2-4) % Baso % (Auto) 0.8 (0-2) % Neut # (Auto) 4600 (7025-5534) /uL Lymph # (Auto) 500 L (2833-3838) /uL [place] # (Auto) 800 (0-900) /uL Eos # (Auto) 200 (0-450) /uL Baso # (Auto) 0 (0-100) /uL PT 11.0 (9.4-12.5) SECONDS INR 1.0 (0.9-1.3) D-Dimer 1908 H (<500) ng/ml Sodium 136 L (137-145) mmol/L Potassium 4.5 (3.4-5.1) mmol/L Chloride 106 (98-107) mmol/L Carbon Dioxide 24 (22-32) mmol/L BUN 20 H (7-17) mg/dL Creatinine 0.94 (0.52-1.04) mg/dL Estimated GFR 60 (>60) mL/min BUN/Creatinine Ratio 21.3 (6-22) Glucose 120 H (80-110) mg/dL Calcium 10.6 H (8.4-10.2) mg/dL Magnesium 1.7 (1.6-2.3) mg/dL Total Bilirubin 0.7 (0.2-1.3) mg/dL AST 27 (14-36) IU/L ALT 19 (<35) IU/L Alkaline Phosphatase 110 (38-126) U/L Total Creatine Kinase 98 (30-135) U/L Troponin I < 0.012 (0.01-0.034) ng/mL NT-Pro-B Natriuret Pep 126 (<450) pg/mL Total Protein 7.6 (6.3-8.2) g/dL Albumin 4.6 (3.5-5.0) g/dL Globulin 3.0 (1.7-4.1) g/dL Albumin/Globulin Ratio 1.5 (1.0-2.8) Imaging Data CT scan - chest: Radiologist's Impression: PROCEDURE: CT ANGIO CHEST PE PROTOCOL INDICATIONS: PLEURITIC CP, ELEVATED DIMER, HX CA TECHNIQUE: After the administration of intravenous contrast, 2 mm thick sections acquired from the pulmonary apices to the posterior costophrenic angles. 3-dimensional maximum intensity projection (MIP) coronal and sagittal reformats were then acquired through the thorax. For radiation dose reduction, the following was used: automated exposure control, adjustment of mA and/or kV according to patient size. COMPARISON: [facility], CT, CT CHEST ABDOMEN PELVIS WITH CONTRAST, 07/23/2023, 11:05. [facility], CR, XR CHEST 1V, 03/04/2024, 6:32. FINDINGS: Image quality: Diagnostic Lungs and pleura: [id number] diffuse ground-glass opacities. Scattered areas of atelectasis also present. There are calcified pleural plaques. Trace left effusion Mediastinum, heart, and esophagus: Coronary calcifications. No acute pulmonary embolism. Borderline cardiomegaly. No pathologic lymph nodes by size criteria. Chest wall and thyroid: Scattered postsurgical changes and left breast skin thickening. Upper abdomen: No gross abnormality on these arterial phase images Bones: There are degenerative changes. IMPRESSION: No acute pulmonary embolism. Diffuse ground-glass opacities in the lungs possibly infectious/inflammatory. Trace pleural effusions. Calcified pleural plaques with scattered areas of atelectasis and scarring. Borderline cardiomegaly. Left breast skin thickening and chest wall postsurgical changes. Consider future dedicated oncologic surveillance imaging Dictated by: Morris Tay M.D. on 03/04/2024 at 8:09 MDM Narrative Medical decision making narrative: Intermittent left-sided chest pains. Other than stable right ventricular disease patient has no known coronary disease. She does have a history of breast cancer and dementia. Initial physical exam unremarkable, EKG sinus rhythm without concerning ischemic findings. Initial blood pressure quite elevated. She was given aspirin and nitroglycerin, which should help to decrease her blood pressure. Cardiac workup initiated. 7am Care assumed, Dr Lai. Chart reviewed, patient is independently evaluated CC: 1-2 hours left-sided pleuritic chest pain Complicating co-morbidities: Dementia, prior breast cancer, no known coronary disease Data collected from: patient Medical records reviewed: Cardiology note from June 2023 for preoperative cardiac evaluation is reviewed Differential considered: Acute coronary syndrome, viral etiology, pleuritic chest pain, pneumothorax, musculoskeletal etiology, congestive heart failure Exam documented above, pertinent findings include: Lab Test results independently reviewed as above. Pertinent findings: CBC is unremarkable D-dimer is elevated at 1908 which is high even age corrected Chemistries show appropriate renal function, no concern with liver abnormalities Initial troponin is undetectable BNP is low Independently reviewed EKG: EKG shows sinus tach at 96, no acute ischemic changes Imaging studies independently reviewed: Chest x-ray shows no acute changes, no significant interstitial findings or cardiomegaly Discussion: 84-year-old woman with upper left pleuritic type chest pain lasting approximately 2 hours this morning. Workup does not suggest acute coronary syndrome, pneumothorax, pulmonary embolism, congestive heart failure, developing pneumonia. D-dimer was elevated and CT PE study was reassuring. Suggest an of increasing findings in the upper lung field, patient is not wheezing, she has had radiation to that is side with her previous breast cancer. I do not suspect based on absence of fever, cough, myalgias and low white blood cell count, she has a developing pneumonia at this time. Did discuss that possibility with her, went over all of the negative findings, most likely explanation at this point is either pleuritic pain or musculoskeletal pain. She is able to take ibuprofen. Discussed treatment and expect course of resolution for pleuritic and musculoskeletal pain along with reasons to return to the emergency department. There was no indication for additional lab work, imaging testing or hospitalization. Patient has been essentially pain-free since arriving in the emergency department. Questions are answered and they will be discharge Heart score is 2 based on age alone Discharge Plan Departure Patient Disposition: Home Clinical Impression: Pleuritic chest pain Instructions: DI for Atypical Chest Pain, DI for Pleurisy Activity Restrictions/Additional Instructions: Thank you for coming in today I suspect the episode of left upper chest pain that you experienced today is either related to muscles and bones in that area(musculoskeletal pain) or to pleuritic chest pain (inflammation around the lining of the lung). Neither these or life-threatening, both can be treated with ibuprofen and rest as needed. The rest of your workup today does not show any evidence of heart attack, collapsed lung, blood clots in your lungs, significant pneumonia or other finding that would require additional workup or hospitalization at this time If you find that you are getting worse or develop any new symptoms, please feel free to return to the emergency department for further evaluation. Prescriptions: No Action ketoconazole 2 % cream 1 applic topical metoprolol succinate 25 mg tablet extended release 24 hr 25 mg PO DAILY Qty: 180 1RF cyanocobalamin (vitamin B-12) 1,000 mcg/mL solution 1,000 mcg IM MONTHLY Qty: 12 3RF ibuprofen 600 mg tablet 600 mg PO TID PRN (Reason: pain) Qty: 30 3RF levothyroxine 50 mcg tablet 50 mcg PO DAILY Qty: 90 1RF Hold Instructions: trial off nortriptyline 10 mg capsule See Rx Instructions PO .COMPLEX Qty: 270 0RF Rx Instructions: 2 caps QPM, 1 cap QAM orally; celecoxib 200 mg capsule 200 mg PO DAILY Qty: 90 3RF Rx Instructions: watch for urine changes, bleeding, abdominal pain lisinopril 40 mg tablet 40 mg PO DAILY Qty: 90 3RF quetiapine [Seroquel] 25 mg tablet 12.5 mg PO DAILY PRN (Reason: anxiety) Qty: 30 0RF (DME) [place] 25G 1 in Qty: 12 0RF Rx Instructions: Use to inject B12 monthly (DME) Syringes 3ml Qty: 12 0RF Rx Instructions: Use to inject B12 monthly cholecalciferol (vitamin D3) PO Hold Instructions: trial off ondansetron 4 mg tablet,disintegrating 4 mg PO Q6-8H PRN (Reason: nausea and vomiting) Qty: 30 0RF (DME) Disabled Parking Permit See Rx Instructions .ROUTE .MEDSUPPLY Qty: 1 0RF Rx Instructions: Valid for 5 years rivastigmine 9.5 mg/24 hour patch 24 hour 9.5 mg transdermal DAILY Referrals: Eleni Watts DO [Primary Care Provider] - Stand Alone Forms: Patient Portal/API/Survey
[2024-03-04] MEDS: ASPIRIN 81 MG CHEW TAB 324 MG PO (06:29)
[2024-03-04] MEDS: NITROGLYCERIN 0.4 MG SL TAB SL ×3 (06:30→06:44)
--- NOTE | 2024-03-04 06:39 | PC.NURSE ---
Imaging at bedside
[2024-03-04 06:40] LABS: Add Manual Diff / Slide Review NO; Basophils Absolute Auto 0 /uL (0-100); Basophils Percent Auto 0.8 % (0-2); Eosinophils Absolute Auto 200 /uL (0-450); Eosinophils Percent Auto 2.6 % (2-4); Hematocrit 39.1 % (36-46); Lymphocytes Absolute Auto 500 /uL (1100-4500); Lymphocytes Percent Auto 8.7 % (25-40); Mean Corpuscular HGB Conc 33.4 % (30-36); Mean Corpuscular Hemoglobin 30.4 PG (26-34); Mean Corpuscular Volume 91.2 fL (80-100); Monocytes Absolute Auto 800 /uL (0-900); Monocytes Percent Auto 12.7 % (3-14); Neutrophils Absolute Auto 4600 /uL (1500-7000); Neutrophils Percent Auto 75.2 % (50-75); Platelet Count 149 X10^3/uL (150-400); Red Blood Cell Count 4.29 X10^6/uL (4.0-5.2); Red Cell Distribution Width 12.7 % (11.6-14.8); White Blood Cell Count 6.1 X10^3/uL (4.5-11.0)
[2024-03-04 06:53] LABS: D Dimer 1908 ng/ml (<500)
--- NOTE | 2024-03-04 06:57 | DI.CT.S_ITS ---
PROCEDURE: CT ANGIO CHEST PE PROTOCOL INDICATIONS: PLEURITIC CP, ELEVATED DIMER, HX CA TECHNIQUE: After the administration of intravenous contrast, 2 mm thick sections acquired from the pulmonary apices to the posterior costophrenic angles. 3-dimensional maximum intensity projection (MIP) coronal and sagittal reformats were then acquired through the thorax. For radiation dose reduction, the following was used: automated exposure control, adjustment of mA and/or kV according to patient size. COMPARISON: [facility], CT, CT CHEST ABDOMEN PELVIS WITH CONTRAST, 07/23/2023, 11:05. [facility], CR, XR CHEST 1V, 03/04/2024, 6:32. FINDINGS: Image quality: Diagnostic Lungs and pleura: [id number] diffuse ground-glass opacities. Scattered areas of atelectasis also present. There are calcified pleural plaques. Trace left effusion Mediastinum, heart, and esophagus: Coronary calcifications. No acute pulmonary embolism. Borderline cardiomegaly. No pathologic lymph nodes by size criteria. Chest wall and thyroid: Scattered postsurgical changes and left breast skin thickening. Upper abdomen: No gross abnormality on these arterial phase images Bones: There are degenerative changes. IMPRESSION: No acute pulmonary embolism. Diffuse ground-glass opacities in the lungs possibly infectious/inflammatory. Trace pleural effusions. Calcified pleural plaques with scattered areas of atelectasis and scarring. Borderline cardiomegaly. Left breast skin thickening and chest wall postsurgical changes. Consider future dedicated oncologic surveillance imaging Dictated by: Morris Tay M.D. on 03/04/2024 at 8:09 Approved by: Morris aTy M.D. on 03/04/2024 at 8:16
[2024-03-04 07:03] LABS: Alanine Aminotransferase 19 IU/L (<35); Albumin 4.6 g/dL (3.5-5.0); Albumin Globulin Ratio 1.5 (1.0-2.8); Alkaline Phosphatase 110 U/L (38-126); Aspartate Aminotransferase 27 IU/L (14-36); BUN Creatinine Ratio 21.3 (6-22); Bilirubin Total 0.7 mg/dL (0.2-1.3); Blood Urea Nitrogen 20 mg/dL (7-17); Calcium 10.6 mg/dL (8.4-10.2); Carbon Dioxide 24 mmol/L (22-32); Chloride 106 mmol/L (98-107); Creatine Kinase 98 U/L (30-135); Estimated Glomerular Filt Rate 60 mL/min (>60); Glucose 120 mg/dL (80-110); HEMOLYSIS < 15 (0-50); Magnesium 1.7 mg/dL (1.6-2.3); Potassium 4.5 mmol/L (3.4-5.1); Sodium 136 mmol/L (137-145); Total Protein 7.6 g/dL (6.3-8.2)
[2024-03-04 07:11] LABS: NT-proBNP (BNP-Adult 18+) 126 pg/mL (<450)
[2024-03-04 07:15] LABS: Troponin I < 0.012 ng/mL (0.01-0.034)
== END 2024-03-04 08:49 | disposition home or self-care (01) ==
PROVIDERS: Emergency Medicine; Emergency Provider Emergency Medicine; PCP Family Medicine
DX: R07.81 Pleurodynia (principal); R07.9 Chest pain, unspecified; R79.89 Other specified abnormal findings of blood chemistry
CPT/HCPCS: 36415; 71045; 71275; 80053; 82550; 83735; 83880; 84484; 85025; 85379; 85610; 93005; 93010; 99284; Q9967

== ENCOUNTER → 2024-04-27 12:42 | Outpatient (CLI) | payer MEDICARE, OTHER, SELFPAY ==
[2024-04-27 13:55] LABS: Blood Urea Nitrogen 26 mg/dL (7-17); Calcium 10.7 mg/dL (8.4-10.2); Carbon Dioxide 22 mmol/L (22-32); Chloride 102 mmol/L (98-107); Estimated Glomerular Filt Rate 41 mL/min (>60); Glucose 102 mg/dL (80-110); HEMOLYSIS < 15 (0-50); Potassium 4.8 mmol/L (3.4-5.1); Sodium 135 mmol/L (137-145)
== END ==
LOC: LAB 12:44
PROVIDERS: PCP Family Medicine; Referring Provider Family Medicine; Visit Provider Family Medicine
DX: N14.11 Contrast-induced nephropathy (principal); T50.8X5A Adverse effect of diagnostic agents, initial encounter
CPT/HCPCS: 36415; 80048

== ENCOUNTER → 2024-05-04 15:57 | Outpatient (CLI) | payer MEDICARE, OTHER, SELFPAY ==
[2024-05-04 17:03] LABS: BUN Creatinine Ratio 21.5 (6-22); Blood Urea Nitrogen 26 mg/dL (7-17); Calcium 10.6 mg/dL (8.4-10.2); Carbon Dioxide 24 mmol/L (22-32); Chloride 100 mmol/L (98-107); Estimated Glomerular Filt Rate 44 mL/min (>60); Glucose 98 mg/dL (80-110); HEMOLYSIS < 15 (0-50); Potassium 4.5 mmol/L (3.4-5.1); Sodium 134 mmol/L (137-145)
== END ==
PROVIDERS: PCP Family Medicine; Referring Provider Family Medicine; Visit Provider Family Medicine
DX: R39.9 Unspecified symptoms and signs involving the genitourinary system (principal); Z79.899 Other long term (current) drug therapy
CPT/HCPCS: 36415; 80048

== ENCOUNTER → 2024-08-23 06:59 | Outpatient (CLI) | payer MEDICARE, OTHER, SELFPAY ==
[2024-08-23 08:01] LABS: Alanine Aminotransferase 17 IU/L (<35); Albumin 4.4 g/dL (3.5-5.0); Albumin Globulin Ratio 1.6 (1.0-2.8); Alkaline Phosphatase 102 U/L (38-126); Blood Urea Nitrogen 20 mg/dL (7-17); Calcium 10.4 mg/dL (8.4-10.2); Carbon Dioxide 26 mmol/L (22-32); Chloride 103 mmol/L (98-107); Estimated Glomerular Filt Rate > 60 mL/min (>60); Globulin 2.8 g/dL (1.7-4.1); Glucose 102 mg/dL (70-99); HEMOLYSIS < 15 (0-50); Potassium 4.4 mmol/L (3.4-5.1); Sodium 137 mmol/L (137-145); Total Protein 7.2 g/dL (6.3-8.2)
== END ==
PROVIDERS: PCP Family Medicine; Referring Provider Family Medicine; Visit Provider Family Medicine
DX: N17.9 Acute kidney failure, unspecified (principal); E21.3 Hyperparathyroidism, unspecified; E83.52 Hypercalcemia
CPT/HCPCS: 36415; 80053

== ENCOUNTER → 2024-09-13 10:46 | Outpatient (CLI) | payer MEDICARE, OTHER, SELFPAY | PROVIDERS: PCP Family Medicine; Visit Provider Family Medicine | DX: N39.0 Urinary tract infection, site not specified (principal) | CPT/HCPCS: 87077; 87086 ==

== ENCOUNTER → 2024-10-20 09:59 | Outpatient (CLI) | payer MEDICARE, OTHER, SELFPAY | PROVIDERS: PCP Family Medicine; Visit Provider Nurse Practitioner Family | DX: R30.0 Dysuria (principal) | CPT/HCPCS: 87086 ==

== ENCOUNTER → 2024-11-06 16:13 | Outpatient (CLI) | payer MEDICARE, OTHER, SELFPAY ==
[2024-11-06 16:43] LABS: Appearance Urine UA CLEAR; Bilirubin Urine UA NEGATIVE (NEGATIVE); Color Urine UA YELLOW; Glucose Urine UA NEGATIVE (Negative); Ketones Urine UA NEGATIVE (NEGATIVE); Leukocyte Esterase Urine UA TRACE (NEGATIVE); Nitrite Urine UA NEGATIVE (Negative); Occult Blood Urine UA NEGATIVE (Negative); Protein Urine UA NEGATIVE (Negative); Specific Gravity Urine UA 1.010 (1.000-1.035); Urobilinogen Urine UA 0.2 E.U./dL (0.2)
[2024-11-06 16:58] LABS: pH Urine UA 6.0 (4.5-8.0)
[2024-11-06 16:59] LABS: Culture Indicated Urine Cult Not Indicated
== END ==
PROVIDERS: PCP Family Medicine; Referring Provider Family Medicine; Visit Provider Family Medicine
DX: N30.00 Acute cystitis without hematuria (principal)
CPT/HCPCS: 81001